=== PATIENT | male | born 1945 | race Caucasian/White ===

== ENCOUNTER → 2017-08-26 14:47 | Outpatient (CLI) | payer OTHER, SELFPAY ==
[2017-08-26 15:20] LABS: Add Manual Diff / Slide Review NO; Basophils Percent Auto 0.5 % (0-2); Hematocrit 43.9 % (41-53); Hemoglobin 15.1 g/dL (13.5-17.5); Lymphocytes Percent Auto 35.7 % (25-40); Mean Corpuscular HGB Conc 34.5 % (30-36); Mean Corpuscular Hemoglobin 28.8 PG (26-34); Mean Corpuscular Volume 83.4 fL (80-100); Monocytes Percent Auto 7.2 % (3-14); Neutrophils Absolute Auto 5700 /uL (3000-5900); Neutrophils Percent Auto 54.6 % (50-75); Platelet Count 339 X10^3/uL (150-400); Red Blood Cell Count 5.26 X10^6/uL (4.5-5.9); Red Cell Distribution Width 14.7 % (11.6-14.8); White Blood Cell Count 10.4 X10^3/uL (4.5-11.0)
[2017-08-26 16:03] LABS: Alanine Aminotransferase 39 IU/L (21-72); Albumin 4.7 g/dL (3.5-5.0); Albumin Globulin Ratio 1.8 (1.0-2.8); Alkaline Phosphatase 58 U/L (38-126); Aspartate Aminotransferase 23 IU/L (17-59); BUN Creatinine Ratio 17.5 (6-22); Bilirubin Total 0.4 mg/dL (0.2-1.3); Blood Urea Nitrogen 14 mg/dL (9-20); Calcium 9.7 mg/dL (8.4-10.2); Carbon Dioxide 31 mmol/L (22-32); Chloride 95 mmol/L (98-107); Estimated Glomerular Filt Rate > 60.0 mL/min (>60); Globulin 2.6 g/dL (1.7-4.1); Glucose 115 mg/dL (80-110); HEMOLYSIS < 15 (0-50); Potassium 3.9 mmol/L (3.4-5.1); Sodium 139 mmol/L (137-145); Total Protein 7.3 g/dL (6.3-8.2)
[2017-08-26 16:15] LABS: Creatinine Urine Random 16.6 mg/dL; Protein (Total) Urine Random 14 mg/dL (0-12); Protein Creatinine Ratio Urine 0.84 GRAM/24H
[2017-08-26 16:36] LABS: Prostate Specific Antigen < 0.064 ng/mL (0.10-4.00)
== END ==
PROVIDERS: PCP Internal Medicine; Referring Provider Urology; Visit Provider Internal Medicine
DX: F41.9 Anxiety disorder, unspecified (principal); E11.42 Type 2 diabetes mellitus with diabetic polyneuropathy; I10 Essential (primary) hypertension; E78.5 Hyperlipidemia, unspecified; Z79.4 Long term (current) use of insulin; Z85.46 Personal history of malignant neoplasm of prostate
CPT/HCPCS: 36415; 80053; 82570; 84153; 84156; 85025

== ENCOUNTER → 2017-10-21 16:46 | Outpatient (CLI) | payer OTHER, SELFPAY ==
--- NOTE | 2017-10-21 16:50 | DI.RAD.S_ITS ---
PROCEDURE: XR ACUTE ABDOMEN SERIES INDICATIONS: abdominal pain TECHNIQUE: One view chest and two views of the abdomen were acquired. COMPARISON: None. FINDINGS: Surgical changes and devices: Surgical clips each hemipelvis, presumably representing lymph node dissection. Chest: Lungs are clear. Heart size is normal. No pleural effusions. No pneumoperitoneum. Abdomen: Bowel gas pattern is abnormal with moderate bilateral colonic obstipation through the abdomen and pelvis.. No suspicious calcifications. Visualized solid organ contours appear normal. Bones: No suspicious bony lesions. IMPRESSION: Moderate bilateral colonic obstipation. Prior surgical procedure presumably representing lymph node dissection and each hemipelvis. Dictated by: Nicolas Lorenzo M.D. on 10/22/2017 at 8:36 Approved by: Nicolas Lorenzo M.D. on 10/22/2017 at 8:37
[2017-10-21 17:20] LABS: Add Manual Diff / Slide Review NO; Basophils Percent Auto 0.4 % (0-2); Hemoglobin 15.9 g/dL (13.5-17.5); Lymphocytes Percent Auto 34.1 % (25-40); Mean Corpuscular HGB Conc 35.3 % (30-36); Mean Corpuscular Hemoglobin 28.8 PG (26-34); Mean Corpuscular Volume 81.6 fL (80-100); Monocytes Percent Auto 7.1 % (3-14); Neutrophils Absolute Auto 7400 /uL (3000-5900); Neutrophils Percent Auto 57.4 % (50-75); Platelet Count 357 X10^3/uL (150-400); Red Blood Cell Count 5.51 X10^6/uL (4.5-5.9); Red Cell Distribution Width 13.8 % (11.6-14.8); White Blood Cell Count 12.8 X10^3/uL (4.5-11.0)
[2017-10-21 17:38] LABS: Alanine Aminotransferase 25 IU/L (21-72); Albumin 4.9 g/dL (3.5-5.0); Albumin Globulin Ratio 1.8 (1.0-2.8); Alkaline Phosphatase 60 U/L (38-126); Amylase 53 U/L (30-110); Aspartate Aminotransferase 21 IU/L (17-59); BUN Creatinine Ratio 16.3 (6-22); Bilirubin Total 0.4 mg/dL (0.2-1.3); Blood Urea Nitrogen 13 mg/dL (9-20); Calcium 9.7 mg/dL (8.4-10.2); Carbon Dioxide 30 mmol/L (22-32); Chloride 93 mmol/L (98-107); Estimated Glomerular Filt Rate > 60.0 mL/min (>60); Globulin 2.7 g/dL (1.7-4.1); Glucose 145 mg/dL (80-110); HEMOLYSIS < 15 (0-50); Lipase 23 U/L (23-300); Potassium 3.3 mmol/L (3.4-5.1); Sodium 135 mmol/L (137-145); Total Protein 7.6 g/dL (6.3-8.2)
[2017-10-21 17:57] LABS: Erythrocyte Sedimentation Rate 2 MM/HR (0-15)
== END ==
PROVIDERS: Family Provider Internal Medicine; PCP Internal Medicine; Visit Provider Internal Medicine
DX: R10.9 Unspecified abdominal pain (principal); E11.9 Type 2 diabetes mellitus without complications; F41.9 Anxiety disorder, unspecified; I10 Essential (primary) hypertension
CPT/HCPCS: 36415; 74022; 80053; 82150; 83690; 85025; 85651

== ENCOUNTER → 2018-09-10 09:28 | Outpatient (CLI) | payer OTHER, SELFPAY ==
[2018-09-10 10:52] LABS: Hemoglobin A1C% w Est Avg Glu 8.2 % (4.0-6.0)
[2018-09-10 11:15] LABS: BUN Creatinine Ratio 17.1 (6-22); Blood Urea Nitrogen 12 mg/dL (9-20); Calcium 9.7 mg/dL (8.4-10.2); Carbon Dioxide 29 mmol/L (22-32); Chloride 94 mmol/L (98-107); Estimated Glomerular Filt Rate > 60.0 mL/min (>60); Glucose 194 mg/dL (80-110); HEMOLYSIS < 15 (0-50); Potassium 3.3 mmol/L (3.4-5.1); Sodium 136 mmol/L (137-145)
== END ==
PROVIDERS: Family Provider Internal Medicine; PCP Internal Medicine; Visit Provider Internal Medicine
DX: E11.9 Type 2 diabetes mellitus without complications (principal); I10 Essential (primary) hypertension
CPT/HCPCS: 36415; 80048; 83036

== ENCOUNTER 2019-04-03 02:48 | Inpatient (IN) | payer OTHER, SELFPAY ==
[2019-04-03] VITALS (11 sets, daily range): BP systolic 123–166; BP diastolic 65–79; PULSE 74–100; RESP 16–20; TEMP 36.8–37.5; O2SAT 94–97; BMI 33.0
--- NOTE | 2019-04-03 02:55 | ED.GENADULT ---
HPI - General Adult General Chief complaint: Abdominal Pain Stated complaint: JUST FEELS TERRIBLE IN ABDOMEN Time Seen by Provider: 04/03/19 02:49 Source: patient Mode of arrival: Ambulatory Limitations: no limitations History of Present Illness HPI narrative: 73-year-old male. Hypertensive, diabetic. On insulin. Here for evaluation of to her 3 days of generalized abdominal pain. Had some diarrhea yesterday. Some nausea no vomiting. Stated that he has been drinking quite a bit of fluids over the past couple days to keep from getting dehydrated. He has had decreased oral intake of food secondary to the abdominal pain. Has not tried anything for the pain prior to arrival. No urinary symptoms. Related Data Home Medications Medication Instructions Recorded Confirmed insulin glargine [Lantus Solostar 18 unit SQ HS #0 12/08/15 03/06/19 U-100 Insulin] dulaglutide 0.75 mg/0.5 mL SUBCUT #2 ml 04/22/18 03/06/19 subcutaneous pen injector Previous Rx's Medication Instructions Recorded albuterol sulfate 90 mcg/actuation 2 puff INHALATION Q4H PRN #18 gram 01/27/18 aerosol inhaler ondansetron 4 mg disintegrating 4 mg PO Q6-8H PRN #30 tab 05/26/18 tablet azelastine 137 mcg (0.1 %) nasal 1 spray NASAL BID #30 ml 08/25/18 spray aerosol lisinopril 40 mg tablet 40 mg PO BID #180 tab 08/27/18 triamterene-hydrochlorothiazid 1 tab PO QDAY #90 tab 09/10/18 amlodipine 10 mg tablet 10 mg PO Q DAY #90 tab 11/28/18 metoprolol succinate 50 mg 50 mg PO QDAY #90 ter 01/09/19 tablet,extended release 24 hr rosuvastatin 10 mg tablet See Rx Instructions .ROUTE 02/19/19 .COMPLEX #90 tablet diazepam 5 mg tablet 5 mg PO BID #60 tab 03/26/19 hydrocodone 5 mg-acetaminophen 325 1 - 2 tab PO Q4HP PRN #240 tab 03/26/19 mg tablet Allergies Allergy/AdvReac Type Severity Reaction Status Date / Time metronidazole Allergy Severe NEUROPATHY Verified 03/06/19 13:28 IN THE FEET naproxen Allergy Severe TONGUE Verified 03/06/19 13:28 SWELLING, ITCHY Sulfa (Sulfonamide Allergy Mild UNSURE Verified 03/06/19 13:28 Antibiotics) glipizide [GLIPIZIDE] AdvReac Intermediate sick all Verified 03/06/19 13:28 over metformin AdvReac Intermediate GASTRIC Verified 03/06/19 13:28 UNEASE, LOOSE STOOL acetaminophen [From Percocet] AdvReac Mild NAUSEA Verified 03/06/19 13:28 oxycodone [From Percocet] AdvReac Mild NAUSEA Verified 03/06/19 13:28 *Pain Agreement AdvReac Mild 10/13/15 JRM Uncoded 03/06/19 13:28 Review of Systems Constitutional Constitutional: Denies fatigue and Denies fever(s) Cardiovascular Cardiovascular: Denies chest pain and Denies dyspnea Respiratory Respiratory: Denies dyspnea Gastrointestinal Gastrointestinal: Reports abdominal pain, Denies change in stool character, Reports nausea and Denies vomiting Genitourinary Genitourinary: Denies dysuria Integumentary/Breasts Skin/Breast: Denies lesions and Denies rash Neurologic Neurologic: Denies behavioral changes Psychiatric Psychiatric: Denies behavioral changes Endocrine Endocrine: Denies fatigue Hematologic/Lymphatic Hematologic/Lymphatic: Denies easy bleeding and Denies easy bruising Patient History Medical History Anxiety (Chronic 04/30/13) Chicken pox (Resolved) Controlled type 2 diabetes mellitus without complication (Chronic 03/21/12) Diabetes mellitus (Chronic ~2013) Foot pain (Resolved) Hay fever (Chronic) History of Clostridium difficile colitis (Resolved ~2011) History of malignant neoplasm of prostate (Chronic 06/16/15) Hyperlipidemia (Chronic) Hypertension (Chronic ~1993) Idiopathic peripheral neuropathy (Chronic 03/12/13) Social History marital status: unmarried,single number of children: 0 household members: none lives independently: Yes caregiver/support person: No housing: house pets and animals: Yes education level: college occupational status: other (Retired) current occupational exposures/hazards: No 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 Friends.) Smoking Status: Never smoker Tobacco: How many years used: 0 quit status: quit date established (Never Started) second hand exposure: No alcohol intake: never substance use type: does not use Smoking Status: Never smoker Exam Initial Vital Signs Initial Vital Signs: Vital Signs Temperature 98.2 F 04/03/19 02:58 Pulse Rate 80 04/03/19 02:58 Respiratory Rate 20 04/03/19 02:58 Blood Pressure 163/77 H 04/03/19 02:58 Pulse Oximetry 97 04/03/19 02:58 Const General: cooperative, comfortable and well developed Limitations: mental status not altered HENMT Head: normal to inspection and normocephalic Resp Effort & Inspection: normal respiratory effort Auscultation: clear to auscultation bilaterally Cardio Rate: regular rate Rhythm: regular rhythm GI Inspection: distended Palpation: soft, No firm and tender (Epigastric region) Skin Rashes: no rashes Neuro General: alert, awake and oriented x3 Cognition: normal cognition Speech: speech normal Extrem General: normal to inspection and capillary refill normal Scores GCS [place] coma scale eye opening: Spontaneous [place] coma scale verbal response: Orientated [place] coma scale motor response: Obey commands [place] coma scale total score: 15 Course Orders Ordered: ED Orders 04/03/19 02:52 EKG-12 Lead Stat 04/03/19 03:01 CT abdomen pelvis w con Stat 04/03/19 03:15 Amylase Stat Complete Blood Count AUTO DIFF Stat Comprehensive Metabolic Panel Stat Lactate (Lactic Acid) Stat Lipase Stat 04/03/19 04:04 Urinalysis and Microscopic Stat 04/03/19 05:15 Potassium Urine Random Stat Sodium Urine Random Stat 04/03/19 05:38 Consult to Physician Stat 04/03/19 05:39 Consult to Physician Routine Sodium Chloride (Normal Saline 0.9%) 1,000 mls @ 500 mls/hr IV BOLUS ONE Stop: 04/03/19 05:57 Last Admin: 04/03/19 04:06 Dose: 500 mls/hr Documented by: NELSON Potassium Chloride 20 meq/ (Sodium Chloride) 260 mls @ 130 mls/hr IV NOW ONE Stop: 04/03/19 06:04 Last Admin: 04/03/19 04:23 Dose: 130 mls/hr Documented by: NELSON Cosigned by: HGUBERN Sodium Chloride (Normal Saline 0.9%) 1,000 mls @ 125 mls/hr IV CONT JOSE Morphine Sulfate (Morphine) 4 mg IV Q4HR PRN PRN Reason: Pain, Mild (1-3) Ondansetron HCl (Zofran) 4 mg IV Q4HR PRN PRN Reason: Nausea And Vomiting Discontinued Medications Morphine Sulfate (Morphine) 2 mg IV NOW ONE Stop: 04/03/19 03:43 Last Admin: 04/03/19 03:49 Dose: 2 mg Documented by: NELSON Morphine Sulfate (Morphine) 2 mg IV NOW ONE Stop: 04/03/19 03:57 Last Admin: 04/03/19 03:59 Dose: 2 mg Documented by: NELSON Morphine Sulfate (Morphine) 4 mg IV NOW ONE Stop: 04/03/19 04:41 Last Admin: 04/03/19 04:44 Dose: 4 mg Documented by: NELSON Vital Signs Vital signs: Vital Signs - 8 hr 04/03/19 02:58 04/03/19 03:51 04/03/19 04:23 Temperature 98.2 F Pulse Rate 80 76 74 Respiratory Rate 20 18 20 Blood Pressure 163/77 H Blood Pressure [Left Arm] 151/68 H 166/69 H Pulse Oximetry 97 95 96 04/03/19 05:22 Temperature Pulse Rate 76 Respiratory Rate 18 Blood Pressure Blood Pressure [Left Arm] 145/65 H Pulse Oximetry 97 Medical Decision Making Lab Data Lab results reviewed: Yes I reviewed the patient's lab results. Result diagrams: 04/03/19 03:15 04/03/19 03:15 Labs: Lab Results 04/03/19 04/03/19 04/03/19 Range/Units 03:15 03:15 03:15 WBC 23.0 H (4.5-11.0) X10^3/uL RBC 5.04 (4.5-5.9) X10^6/uL Hgb 14.3 (13.5-17.5) g/dL Hct 40.9 L (41-53) % MCV 81.1 (80-100) fL MCH 28.5 (26-34) PG MCHC 35.1 (30-36) % RDW 14.2 (11.6-14.8) % Plt Count 297 (150-400) X10^3/uL Neut % (Auto) Not Reportable Lymph % (Auto) Not Reportable [place] % (Auto) Not Reportable Eos % (Auto) Not Reportable Baso % (Auto) Not Reportable Lymph # (Auto) Not Reportable [place] # (Auto) Not Reportable Baso # (Auto) Not Reportable Total Counted 100 Seg Neutrophils % 84.0 H (38-70) % Lymphocytes % (Manual) 10.0 L (25-45) % Monocytes % (Manual) 6.0 (2-11) % Neutrophils # (Manual) 40448 H (1933-1999) /uL RBC Morphology Normal morphology Sodium 117 L* (137-145) mmol/L Potassium 2.9 L (3.4-5.1) mmol/L Chloride 74 L* (98-107) mmol/L Carbon Dioxide 28 (22-32) mmol/L BUN 8 L (9-20) mg/dL Creatinine 0.50 L (0.66-1.25) mg/dL Estimated GFR > 60.0 (>60) mL/min BUN/Creatinine Ratio 16.0 (6-22) Glucose 189 H (80-110) mg/dL Lactate 1.2 (0.7-2.1) mmol/L Calcium 8.7 (8.4-10.2) mg/dL Total Bilirubin 0.9 (0.2-1.3) mg/dL AST 20 (17-59) IU/L ALT 15 (<50) IU/L Alkaline Phosphatase 72 (38-126) U/L Total Protein 7.2 (6.3-8.2) g/dL Albumin 4.3 (3.5-5.0) g/dL Globulin 2.9 (1.7-4.1) g/dL Albumin/Globulin Ratio 1.5 (1.0-2.8) Lipase 82 (23-300) U/L Imaging Data CT scan - abdomen/pelvis: Radiologist's Impression: Mild peripancreatic inflammatory changes compatible with acute pancreatitis. No evidence of pancreatic necrosis, pseudocyst, or secondary complications. No evidence of colitis, diverticulitis, bowel obstruction, or obstructing uropathy. Appendix not visualized Left renal cyst and subcentimeter bilateral low attenuation renal cortical lesions. Too small to characterize Probable right hepatic cyst or hemangioma ECG Data Attestation: I personally reviewed and interpreted this ECG as follows: Prior ECG tracings: not available for review Interpretation: Sinus rhythm Left axis deviation Ventricular rate of [address] T wave changes MDM Narrative Medical decision making narrative: Patient does have a relatively benign abdominal exam however does have a focus of his pain in the epigastric region. No right upper quadrant tenderness. No left upper quadrant tenderness. No chest pain. Does have leukocytosis. Despite his lack elevation in lipase CT scan findings concerning for pancreatitis. CT scan does show inflammation around the head of the. Which does correlate with where he is having his pain. His LFTs are unremarkable. Patient is hyponatremic and hypokalemic. Do suspect that his hyponatremia was secondary to the increase fluid that he has had over the past couple days. He was gently rehydrated. His amylase and urine potassium and sodium pending at the time of admission. I did discuss the case with Dr. Welch who is on-call for the patient's primary provider. Will admit for further evaluation and treatment. Discussed this with the patient. He expressed understanding and agreement plan. Discharge Plan Departure Patient Disposition: Admitted As Inpatient Clinical Impression: Hyponatremia, Hypokalemia, Hyperglycemia Acute pancreatitis Qualifiers: Pancreatitis type: unspecified pancreatitis type Acute pancreatitis complication: unspecified Qualified Code(s): K85.90 - Acute pancreatitis without necrosis or infection, unspecified
--- NOTE | 2019-04-03 03:01 | DI.CT.S_ITS ---
PROCEDURE: CT ABDOMEN PELVIS W CON INDICATIONS: Generalized abdominal pain with bloating TECHNIQUE: After the administration of intravenous contrast, 5 mm thick sections acquired from the diaphragm to the symphysis. 5 mm coronal and sagittal reformats were acquired. For radiation dose reduction, the following was used: automated exposure control, adjustment of mA and/or kV according to patient size. COMPARISON: None. FINDINGS: Image quality: Excellent. ABDOMEN: Lung bases: Lung bases are clear. Heart size is normal. Solid organs: Liver is normal in size and enhancement. Subcentimeter cyst versus hemangioma in the right lobe. Gallbladder is mildly distended without gallbladder wall thickening. No calcified gallstones. Biliary system is non dilated. Fatty atrophy of the pancreas. Inflammatory change in the region of the pancreatic head and uncinate process consistent with acute pancreatitis. No evidence of pancreatic necrosis. Spleen is normal in size and enhancement. No adrenal nodules. Kidneys demonstrate normal size and enhancement, without hydronephrosis. Peritoneum and bowel: Mild inflammatory change in the region of the third and fourth portion of the duodenum, likely from acute pancreatitis. Bowel loops otherwise demonstrate normal wall thickness and caliber. No free fluid or air. Nodes and vessels: No retroperitoneal or mesenteric adenopathy by size criteria. Aorta and inferior vena cava are normal in size. Miscellaneous: No ventral hernias. PELVIS: Genitourinary: Bladder wall thickness is normal. Prostatectomy clips. Miscellaneous: Small left inguinal hernia containing fat. Bones: No suspicious bony lesions. No vertebral body compression fractures. IMPRESSION: 1. Mild changes of acute pancreatitis. 2. No prostatectomy. No evidence of metastatic disease. Comment: Final report is concordant with preliminary interpretation provided by [facility]. Dictated by: Clinton Juan M.D. on 04/03/2019 at 7:47 Approved by: Clinton Juan M.D. on 04/03/2019 at 7:52
[2019-04-03 03:32] LABS: Hematocrit 40.9 % (41-53); Hemoglobin 14.3 g/dL (13.5-17.5); Mean Corpuscular HGB Conc 35.1 % (30-36); Mean Corpuscular Hemoglobin 28.5 PG (26-34); Mean Corpuscular Volume 81.1 fL (80-100); Platelet Count 297 X10^3/uL (150-400); Red Blood Cell Count 5.04 X10^6/uL (4.5-5.9); Red Cell Distribution Width 14.2 % (11.6-14.8)
[2019-04-03 03:39] LABS: Add Manual Diff / Slide Review YES; Alanine Aminotransferase 15 IU/L (<50); Albumin 4.3 g/dL (3.5-5.0); Albumin Globulin Ratio 1.5 (1.0-2.8); Alkaline Phosphatase 72 U/L (38-126); Aspartate Aminotransferase 20 IU/L (17-59); Bilirubin Total 0.9 mg/dL (0.2-1.3); Blood Urea Nitrogen 8 mg/dL (9-20); Calcium 8.7 mg/dL (8.4-10.2); Carbon Dioxide 28 mmol/L (22-32); Estimated Glomerular Filt Rate > 60.0 mL/min (>60); Globulin 2.9 g/dL (1.7-4.1); Glucose 189 mg/dL (80-110); HEMOLYSIS < 15 (0-50); Lipase 82 U/L (23-300); Total Protein 7.2 g/dL (6.3-8.2)
[2019-04-03 03:40] LABS: Lactate (Lactic Acid) 1.2 mmol/L (0.7-2.1)
[2019-04-03] MEDS: MORPHINE 2 MG/ML INJ IV ×2 (03:49→03:59)
[2019-04-03 03:52] LABS: Neutrophils Absolute Manual 19320 /uL (3000-5900); RBC Morphology Normal Morphology; Total Cells Counted 100
[2019-04-03 03:53] LABS: Potassium 2.9 mmol/L (3.4-5.1)
[2019-04-03 03:56] LABS: Chloride 74 mmol/L (98-107); Sodium 117 mmol/L (137-145)
[2019-04-03] MEDS: SODIUM CHLORIDE 0.9% 1,000 ML 500 ML IV (04:06)
[2019-04-03] MEDS: POTASSIUM CHLORIDE 20 MEQ in SODIUM CHLORIDE 0.9% 250 ML 130 ML IV (04:23)
[2019-04-03] MEDS: MORPHINE 4 MG/ML INJ IV (04:44)
[2019-04-03 05:53] LABS: Potassium Urine Random 4.9 mmol/L; Sodium Urine Random < 5 mmol/L (30-90)
[2019-04-03 05:55] LABS: Amylase 66 U/L (30-110)
[2019-04-03] MEDS: MORPHINE 2 MG/ML INJ 4 MG IV (06:31)
--- NOTE | 2019-04-03 07:49 | P.HP_ITS ---
History of Present Illness History of Present Illness Date Patient Seen: 04/03/19 Time Patient Seen: 07:49 Chief complaint: JUST FEELS TERRIBLE IN ABDOMEN Narrative: Patient presented to the [facility] Emergency Department on day of admission with severe abdominal symptoms. He reported feeling ill for maybe up to 2 days prior. Pain in the mid abdomen with. Maybe some mild nausea with emesis early in the morning prior to admission on 1 occasion. He felt like eating actually seemed to make things better. Had some milder but the similar symptoms when vacationing in [place] several weeks prior that resolved on their own without particular intervention. This time he reduced his food intake as he just was not feeling like eating but worked very hard to drink lots and lots and lots of fluids to stay hydrated. Denies fever chills. No change in bowels. No new food sources or other people around him L Patient History Medical History Anxiety (Chronic 04/30/13) Controlled type 2 diabetes mellitus without complication (Chronic 03/21/12) Diabetes mellitus (Chronic ~2013) Foot pain (Resolved) Hay fever (Chronic) History of Clostridium difficile colitis (Resolved ~2011) History of malignant neoplasm of prostate (Chronic 06/16/15) Hyperlipidemia (Chronic) Hypertension (Chronic ~1993) Idiopathic peripheral neuropathy (Chronic 03/12/13) Surgical History Ankle pain (Resolved ~1996) Status post radical cystoprostatectomy (Inactive ~1994) Family & Social History Family History Father Type II diabetes mellitus Heart disease Grandfather Heart disease Mother Lung cancer Grandfather Prostate cancer Social History: household members none lives independently Yes caregiver/support person No Safety & Behavioral: Feels Safe in Current Yes Environment Tobacco & Substance use: Smoking Status Never smoker alcohol intake never Substance Use Type does not use Meds Home Medications and Allergies Home Medications Medication Instructions Recorded Confirmed Type insulin glargine [Lantus Solostar 18 unit SQ HS #0 12/08/15 03/06/19 History U-100 Insulin] albuterol sulfate 90 mcg/actuation 2 puff INHALATION Q4H PRN #18 gram 01/27/18 03/06/19 Rx aerosol inhaler dulaglutide 0.75 mg/0.5 mL SUBCUT #2 ml 04/22/18 03/06/19 History subcutaneous pen injector ondansetron 4 mg disintegrating 4 mg PO Q6-8H PRN #30 tab 05/26/18 03/06/19 Rx tablet azelastine 137 mcg (0.1 %) nasal 1 spray NASAL BID #30 ml 08/25/18 03/06/19 Rx spray aerosol lisinopril 40 mg tablet 40 mg PO BID #180 tab 08/27/18 03/06/19 Rx triamterene-hydrochlorothiazid 1 tab PO QDAY #90 tab 09/10/18 03/06/19 Rx amlodipine 10 mg tablet 10 mg PO Q DAY #90 tab 11/28/18 03/06/19 Rx metoprolol succinate 50 mg 50 mg PO QDAY #90 ter 01/09/19 03/06/19 Rx tablet,extended release 24 hr rosuvastatin 10 mg tablet See Rx Instructions .ROUTE 02/19/19 03/06/19 Rx .COMPLEX #90 tablet diazepam 5 mg tablet 5 mg PO BID #60 tab 03/26/19 Rx hydrocodone 5 mg-acetaminophen 325 1 - 2 tab PO Q4HP PRN #240 tab 03/26/19 Rx mg tablet Allergies Allergy/AdvReac Type Severity Reaction Status Date / Time metronidazole Allergy Severe NEUROPATHY Verified 03/06/19 13:28 IN THE FEET naproxen Allergy Severe TONGUE Verified 03/06/19 13:28 SWELLING, ITCHY Sulfa (Sulfonamide Allergy Mild UNSURE Verified 03/06/19 13:28 Antibiotics) glipizide [GLIPIZIDE] AdvReac Intermediate sick all Verified 03/06/19 13:28 over metformin AdvReac Intermediate GASTRIC Verified 03/06/19 13:28 UNEASE, LOOSE STOOL acetaminophen [From Percocet] AdvReac Mild NAUSEA Verified 03/06/19 13:28 oxycodone [From Percocet] AdvReac Mild NAUSEA Verified 03/06/19 13:28 *Pain Agreement AdvReac Mild 10/13/15 JRM Uncoded 03/06/19 13:28 Review of Systems Constitutional Constitutional: Denies excessive sweating, Denies fever(s), Denies headache(s), Denies weakness, Denies weight gain and Denies weight loss Eyes Eyes: Denies change in vision, Denies itchy eyes, Denies loss of vision and Denies other visual disturbances ENT Ears, Nose, Mouth, and Throat: No change in voice, No difficulty swallowing, No dizziness, No ear pain, No headache(s), No hoarseness, No lip swelling, No neck pain, No sore throat, No throat swelling and No tongue swelling Cardiovascular Cardiovascular: Denies chest pain, Denies fainting, Denies fast heart rate, Denies irregular heart rhythm, Denies rapid, pounding, or irregular heartbeat, Denies shortness of breath, Denies shortness of breath with activity and Denies slow heart rate Respiratory Respiratory: Denies chest congestion, Denies cough, Denies hemoptysis, Denies dyspnea, Denies dyspnea on exertion, Denies stridor and Denies wheezing Gastrointestinal Gastrointestinal: Denies melena, Reports bloating, Denies change in bowel habits, Denies change in stool character, Denies coffee ground emesis, Denies cramping, Denies dysphagia and Denies hematemesis Genitourinary Genitourinary: Denies hematuria, Denies difficulty urinating and Denies urinary frequency Musculoskeletal Musculoskeletal: Denies abnormal gait, Denies myalgias, Denies arthralgias, Denies limited range of motion and Denies neck pain Integumentary/Breasts Skin/Breast: Denies bleeding lesions, Denies change in pigmentation, Denies changing lesions, Denies new lesions, Denies rash, Denies skin swelling, Denies sores and Denies jaundice Neurologic Neurologic: Denies abnormal speech, Denies abnormal gait, Denies behavioral changes, Denies confusion, Denies dizziness, Denies syncope, Denies headache(s), Denies loss of vision, Denies memory loss, Denies seizure-like activity, Denies paresthesias and Denies weakness Psychiatric Psychiatric: Denies behavioral changes, Denies change in appetite, Denies confusion, Denies difficulty concentrating, Denies auditory hallucinations, Denies memory loss, Denies mood swings and Denies suicidal ideation Endocrine Endocrine: Denies excessive sweating, Denies flushing, Denies polyuria and Denies palpitations Hematologic/Lymphatic Hematologic/Lymphatic: Denies easy bleeding, Denies easy bruising and Denies lymphadenopathy Allergic/Immunologic Allergic/Immunologic: Denies urticaria, Denies itchy eyes, Denies lip swelling, Denies throat swelling, Denies tongue swelling and Denies wheezing Exam Vital Signs (past 8 hours): - 04/03/19 02:58 04/03/19 03:51 04/03/19 04:23 Temperature 98.2 F Pulse Rate 80 76 74 Respiratory Rate 20 18 20 Blood Pressure 163/77 H Blood Pressure [Left Arm] 151/68 H 166/69 H Pulse Oximetry 97 95 96 04/03/19 05:22 04/03/19 06:42 Temperature Pulse Rate 76 75 Respiratory Rate 18 18 Blood Pressure Blood Pressure [Left Arm] 145/65 H 147/68 H Pulse Oximetry 97 96 Oxygen Delivery Method Room Air Narrative Exam Narrative: Elderly male in no obvious distress lying in hospital bed HEENT-normocephalic atraumatic PERRLA EOMs intact Neck-no lymphadenopathy no bruits Lungs-good breath sounds no wheezes no crackles bilaterally Heart-regular rate and rhythm no murmur Abdomen-distended with rare bowel tones. Mild midepigastric to perhaps slightly right of midline mild tenderness to palpation, no rebound or guarding Extremities-not sinus clubbing or edema Neuro-alert orient x3 no focal findings gait not tested Objective Imaging CT scan - abdomen: Radiologist's impression: PROCEDURE: CT ABDOMEN PELVIS W CON INDICATIONS: Generalized abdominal pain with bloating TECHNIQUE: After the administration of intravenous contrast, 5 mm thick sections acquired from the diaphragm to the symphysis. 5 mm coronal and sagittal reformats were acquired. For radiation dose reduction, the following was used: automated exposure control, adjustment of mA and/or kV according to patient size. COMPARISON: None. FINDINGS: Image quality: Excellent. ABDOMEN: Lung bases: Lung bases are clear. Heart size is normal. Solid organs: Liver is normal in size and enhancement. Subcentimeter cyst versus hemangioma in the right lobe. Gallbladder is mildly distended without gallbladder wall thickening. No calcified gallstones. Biliary system is non dilated. Fatty atr ophy of the pancreas. Inflammatory change in the region of the pancreatic head and uncinate process consistent with acute pancreatitis. No evidence of pancreatic necrosis. Spleen is normal in size and enhancement. No adrenal nodules. Kidneys demonstrate normal size and enhancement, without hydronephrosis. Peritoneum and bowel: Mild inflammatory change in the region of the third and fourth portion of the duodenum, likely from acute pancreatitis. Bowel loops otherwise demonstrate normal wall thickness and caliber. No free fluid or air. Nodes and vessels: No retroperitoneal or mesenteric adenopathy by size criteria. Aorta and inferior vena cava are normal in size. Miscellaneous: No ventral hernias. PELVIS: Genitourinary: Bladder wall thickness is normal. Prostatectomy clips. Miscellaneous: Small left inguinal hernia containing fat. Bones: No suspicious bony lesions. No vertebral body compression fractures. IMPRESSION: 1. Mild changes of acute pancreatitis. 2. No prostatectomy. No evidence of metastatic disease. Labs Result Diagrams: 04/03/19 03:15 04/03/19 03:15 Labs: Laboratory Results - last 24 hr 04/03/19 04/03/19 04/03/19 03:15 03:15 03:15 WBC 23.0 H RBC 5.04 Hgb 14.3 Hct 40.9 L MCV 81.1 MCH 28.5 MCHC 35.1 RDW 14.2 Plt Count 297 Neut % (Auto) Not Reportable Lymph % (Auto) Not Reportable [place] % (Auto) Not Reportable Eos % (Auto) Not Reportable Baso % (Auto) Not Reportable Lymph # (Auto) Not Reportable [place] # (Auto) Not Reportable Baso # (Auto) Not Reportable Total Counted 100 Seg Neutrophils % 84.0 H Lymphocytes % (Manual) 10.0 L Monocytes % (Manual) 6.0 Neutrophils # (Manual) 82385 H RBC Morphology Normal morphology Sodium 117 L* Potassium 2.9 L Chloride 74 L* Carbon Dioxide 28 BUN 8 L Creatinine 0.50 L Estimated GFR > 60.0 BUN/Creatinine Ratio 16.0 Glucose 189 H Lactate 1.2 Calcium 8.7 Total Bilirubin 0.9 AST 20 ALT 15 Alkaline Phosphatase 72 Total Protein 7.2 Albumin 4.3 Globulin 2.9 Albumin/Globulin Ratio 1.5 Amylase Lipase 82 Ur Random Sodium Ur Random Potassium 04/03/19 04/03/19 03:15 05:15 WBC RBC Hgb Hct MCV MCH MCHC RDW Plt Count Neut % (Auto) Lymph % (Auto) [place] % (Auto) Eos % (Auto) Baso % (Auto) Lymph # (Auto) [place] # (Auto) Baso # (Auto) Total Counted Seg Neutrophils % Lymphocytes % (Manual) Monocytes % (Manual) Neutrophils # (Manual) RBC Morphology Sodium Potassium Chloride Carbon Dioxide BUN Creatinine Estimated GFR BUN/Creatinine Ratio Glucose Lactate Calcium Total Bilirubin AST ALT Alkaline Phosphatase Total Protein Albumin Globulin Albumin/Globulin Ratio Amylase 66 Lipase Ur Random Sodium < 5 L Ur Random Potassium 4.9 Assessment & Plan Assessment & Plan narrative: 1. Abdominal pain-while patient did have findings on CT suggestive of perhaps mild acute pancreatitis nothing else in his story or objectively supports this diagnosis. He has normal amylase and normal lipase. His symptoms are not consistent with pancreatic source of symptoms in my opinion. I think more chin more likely is a gastric sources symptoms maybe even biliary tract. At this point I am assuming gastric and I would treat him with an IV proton pump inhibitor keep him NPO except for sips of water with some of his essential meds such as his beta-phu therapy etc. continue to monitor carefully and will repeat amylase and lipase in case this is pancreatitis On imaging his biliary tree looked to be normal with only mild distention of his gallbladder. His LFTs and his bilirubin were entirely normal on his laboratory evaluation. I will repeat these numbers again in the morning but at the moment given lack of objective findings I am not thinking this is biliary tract but I would not rule that out either. Continue with IV antiemetics IV pain management and basically NPO for possible pancreatitis verses what I believe to be more likely gastric source of symptoms 2. Hyponatremia-likely combination of his thiazide diuretic on top of excessive fluid intake. Will for now place on IV saline hold his thiazide diuretic of course and re-evaluate numbers later in the afternoon 3. Hypokalemia-will replace parenterally as well and recheck later today 4. Diabetes-patient is type 2 diabetic on insulin. I am going to continue to give him basal insulin but at a much lower dose given his lack of real oral intake. Will follow his fingerstick numbers and treat with insulin as necessary. Hopefully he can return to eating something in the next 24 hours if not then I will supply him with some IV dextrose as well 5. Anxiety-patient with severe anxiety and chronically on diazepam. Will continue diazepam for now as he certainly become physically dependent if nothing else on it 6. Hypertension-patient on multiple antihypertensives. I am going to hold his thiazide diuretic of course. For now I am going to hold his oral lisinopril but he will receive his oral metoprolol. 7. VTE prophylaxis-appropriate for him to be placed on subcu Lovenox as well as sequential compression devices for prevention of venous thromboembolism. Patient deserves inpatient hospitalization given his severe hyponatremia as well as his severe abdominal pain that thus far device specific diagnosis with several confusing findings as above. He will be in the hospital greater than 48 hours including 2 separate midnights, more likely than not.
[2019-04-03] MEDS: POTASSIUM CHLORIDE 60 MEQ in SODIUM CHLORIDE 0.9% 500 ML 88.333 ML IV (09:28)
[2019-04-03] MEDS: PANTOPRAZOLE 40 MG VIAL IV ×2 (09:29→21:07)
[2019-04-03] MEDS: diazePAM 5 MG TABLET PO ×2 (09:29→21:06)
[2019-04-03] MEDS: ENOXAPARIN 40 MG/0.4 ML SYRINGE SUBCUT (09:29)
[2019-04-03] MEDS: ROSUVASTATIN 10 MG TABLET PO (09:29)
[2019-04-03] MEDS: METOPROLOL ER 50 MG TABLET PO (09:29)
[2019-04-03] MEDS: HYDROMORPHONE 1 MG INJ IV ×2 (09:30→16:29)
[2019-04-03] MEDS: SODIUM CHLORIDE 0.9% 1,000 ML 150 ML IV (09:31)
[2019-04-03 10:18] LABS: Bacteria Urine None Seen; WBC Urine None Seen (0-5/HPF)
[2019-04-03 10:34] LABS: Appearance Urine UA CLEAR; Bilirubin Urine UA NEGATIVE (NEGATIVE); Color Urine UA YELLOW; Glucose Urine UA NEGATIVE (Negative); Ketones Urine UA TRACE (NEGATIVE); Leukocyte Esterase Urine UA NEGATIVE (NEGATIVE); Nitrite Urine UA NEGATIVE (Negative); Occult Blood Urine UA TRACE-INTACT (Negative); Protein Urine UA NEGATIVE (Negative); Specific Gravity Urine UA <=1.005 (1.000-1.035); Urobilinogen Urine UA 0.2 E.U./dL (0.2)
[2019-04-03 10:41] LABS: Culture Indicated Urine Cult Not Indicated; RBC Urine 0-1/HPF (0-5/HPF)
[2019-04-03] MEDS: INSULIN ASPART 100 UNIT/ML INSULN PEN SUBCUT ×2 (12:06→17:15)
[2019-04-03 13:47] LABS: BUN Creatinine Ratio 13.3 (6-22); Blood Urea Nitrogen 8 mg/dL (9-20); Calcium 8.6 mg/dL (8.4-10.2); Carbon Dioxide 29 mmol/L (22-32); Chloride 85 mmol/L (98-107); Estimated Glomerular Filt Rate > 60.0 mL/min (>60); Glucose 168 mg/dL (80-110); HEMOLYSIS < 15 (0-50); Sodium 126 mmol/L (137-145)
--- NOTE | 2019-04-03 17:31 | CM.DANOTE ---
Found the patient sitting up in bed watching TV. Very pleasant and humorous man. A&O x4. He reports feeling much better that prior to admission. Patient states his sister (the woman listed as next of kin on demographics sheet) has flown into town to take care of him while he recuperates. Pt. fully expects to resume his normal, independent lifestyle once healed. Patient's discharge plan is home without need. Whiteboard updates. Patient instructed to call Care Management if he thinks of anything we can assist with.
--- NOTE | 2019-04-03 18:10 | PC.NURSE ---
Addendum entered by Cherelle Arango R.N. 04/03/19 22:44: Pt had requested dilaudid earlier this evening prior to this scientific writer leaving for the evening approximately 11 p.m. Pt now in bed with eyes closed lightly snoring. Respirations are even and unlabored. Pt does not rouse to soft voice so will allow pt sleep and inform noc shift pain meds may be needed. Addendum entered by Cherelle Arango R.N. 04/03/19 19:26: Standby assistance into bathroom to void. Returned to bed. Stable gait without dizziness when up. Voiding without difficulty. Rates abdominal pain 2/10 after ambulation. Returned to bed and BL calf scd's replaced. Oral swabs provided and pt uses independently. Original Note: Pt reports central mid-abdominal pain 8/10. Given iv dilaudid as per emar. Pt reports excellent results with pain now 2/10. Denies nausea. Remains NPO. Explained rationale for insulin orders as per MD. Pt's sister is present @ bedside.
[2019-04-03] MEDS: SODIUM CHLORIDE 0.9% 1,000 ML 100 ML IV (21:06)
[2019-04-03] MEDS: INSULIN GLARGINE 100 UNIT/ML 3ML PEN 10 UNIT SUBCUT (21:07)
[2019-04-04] VITALS (10 sets, daily range): BP systolic 131–156; BP diastolic 61–98; PULSE 75–88; RESP 16–18; TEMP 36.9–37.9; O2SAT 91–96
[2019-04-04] MEDS: HYDROMORPHONE 1 MG INJ IV ×4 (01:09→22:56)
[2019-04-04 05:14] LABS: Add Manual Diff / Slide Review NO; Basophils Absolute Auto 100 /uL (0-100); Basophils Percent Auto 0.6 % (0-2); Eosinophils Absolute Auto 200 /uL (0-450); Eosinophils Percent Auto 1.4 % (2-4); Hematocrit 38.2 % (41-53); Hemoglobin 13.3 g/dL (13.5-17.5); Lymphocytes Absolute Auto 2100 /uL (1100-4500); Lymphocytes Percent Auto 15.3 % (25-40); Mean Corpuscular HGB Conc 34.9 % (30-36); Mean Corpuscular Hemoglobin 28.5 PG (26-34); Mean Corpuscular Volume 81.7 fL (80-100); Monocytes Absolute Auto 1100 /uL (0-900); Monocytes Percent Auto 7.8 % (3-14); Neutrophils Absolute Auto 10400 /uL (1500-7000); Neutrophils Percent Auto 74.9 % (50-75); Platelet Count 306 X10^3/uL (150-400); Red Blood Cell Count 4.68 X10^6/uL (4.5-5.9); Red Cell Distribution Width 14.7 % (11.6-14.8); White Blood Cell Count 13.9 X10^3/uL (4.5-11.0)
[2019-04-04 05:20] LABS: Alanine Aminotransferase 13 IU/L (<50); Albumin 3.6 g/dL (3.5-5.0); Albumin Globulin Ratio 1.2 (1.0-2.8); Alkaline Phosphatase 60 U/L (38-126); Aspartate Aminotransferase 17 IU/L (17-59); Bilirubin Total 0.4 mg/dL (0.2-1.3); Blood Urea Nitrogen 9 mg/dL (9-20); Calcium 8.2 mg/dL (8.4-10.2); Carbon Dioxide 27 mmol/L (22-32); Chloride 96 mmol/L (98-107); Estimated Glomerular Filt Rate > 60.0 mL/min (>60); Globulin 2.9 g/dL (1.7-4.1); Glucose 158 mg/dL (80-110); HEMOLYSIS < 15 (0-50); Potassium 3.7 mmol/L (3.4-5.1); Sodium 132 mmol/L (137-145); Total Protein 6.5 g/dL (6.3-8.2)
--- NOTE | 2019-04-04 06:10 | PC.NURSE ---
Pt is doing alright. Complained of pain twice overnight, 6-8 out of 10, relieved with 1mg IVP Dilaudid. Kept NPO, given a few ice chips NS@100mL/hr Had soft BM overnight. Fingerstick overnight 140 B/L SCDs on overnight,
[2019-04-04] MEDS: SODIUM CHLORIDE 0.9% 1,000 ML 100 ML IV (06:58)
[2019-04-04] MEDS: METOPROLOL ER 50 MG TABLET PO (08:10)
[2019-04-04] MEDS: diazePAM 5 MG TABLET PO ×2 (08:10→13:44)
[2019-04-04] MEDS: ONDANSETRON 4 MG/2 ML INJ IV ×2 (08:11→13:44)
[2019-04-04] MEDS: PANTOPRAZOLE 40 MG VIAL IV ×2 (08:11→21:13)
[2019-04-04] MEDS: ENOXAPARIN 40 MG/0.4 ML SYRINGE SUBCUT (08:11)
[2019-04-04] MEDS: INSULIN ASPART 100 UNIT/ML INSULN PEN SUBCUT ×3 (08:12→16:32)
--- NOTE | 2019-04-04 09:42 | PM.PN.1 ---
Subjective Subjective Date Patient Seen: 04/04/19 Time Patient Seen: 09:42 Interval history: Patient had an uneventful day yesterday. Reports abdominal pain is improved. Still has a fair amount distension and if anything pain is localizing in the right upper quadrant more accurately just to the right of midline in the mid epigastrium. He actually put a sharpie ink jose on the spot. No nausea or vomiting No fever documented Has remained NPO. Blood sugars adequately controlled Exam Vital Signs (past 8 hours): - 04/04/19 03:20 04/04/19 08:00 04/04/19 08:10 Temperature 98.8 F 99.3 F Pulse Rate 84 83 Respiratory Rate 16 16 Blood Pressure 145/61 H 131/74 131/74 Pulse Oximetry 95 95 Oxygen Delivery Method Room Air Oxygen Flow Rate 0 Narrative Exam Narrative: HEENT-unremarkable Lungs-clear Heart-regular rate and rhythm Abdomen-moderate distension no rebound or guarding mild tenderness just to the right of midline in the epigastrium without rebound or guarding of course, positive normal bowel tones Objective Labs Result Diagrams: 04/04/19 04:56 04/04/19 04:56 Labs: Laboratory Results - last 24 hr 04/03/19 04/03/19 04/04/19 09:45 13:20 04:56 WBC 13.9 H RBC 4.68 Hgb 13.3 L Hct 38.2 L MCV 81.7 MCH 28.5 MCHC 34.9 RDW 14.7 Plt Count 306 Neut % (Auto) 74.9 Lymph % (Auto) 15.3 L [place] % (Auto) 7.8 Eos % (Auto) 1.4 L Baso % (Auto) 0.6 Neut # (Auto) 62905 H Lymph # (Auto) 2100 [place] # (Auto) 1100 H Eos # (Auto) 200 Baso # (Auto) 100 Sodium 126 L Potassium 4.0 Chloride 85 L Carbon Dioxide 29 BUN 8 L Creatinine 0.60 L Estimated GFR > 60.0 BUN/Creatinine Ratio 13.3 Glucose 168 H Calcium 8.6 Total Bilirubin AST ALT Alkaline Phosphatase Total Protein Albumin Globulin Albumin/Globulin Ratio Urine Color Yellow Urine Appearance Clear Urine pH 7.0 Ur Specific [place] <=1.005 Urine Protein Negative Urine Glucose (UA) Negative Urine Ketones Trace H Urine Occult Blood Trace-intact Urine Nitrate Negative Urine Bilirubin Negative Urine Urobilinogen 0.2 Ur Leukocyte Esterase Negative Urine RBC 0-1/hpf Urine WBC None seen Urine Bacteria None seen Ur Culture Indicated? Cult not indicated 04/04/19 04:56 WBC RBC Hgb Hct MCV MCH MCHC RDW Plt Count Neut % (Auto) Lymph % (Auto) [place] % (Auto) Eos % (Auto) Baso % (Auto) Neut # (Auto) Lymph # (Auto) [place] # (Auto) Eos # (Auto) Baso # (Auto) Sodium 132 L Potassium 3.7 Chloride 96 L Carbon Dioxide 27 BUN 9 Creatinine 0.60 L Estimated GFR > 60.0 BUN/Creatinine Ratio 15.0 Glucose 158 H Calcium 8.2 L Total Bilirubin 0.4 AST 17 ALT 13 Alkaline Phosphatase 60 Total Protein 6.5 Albumin 3.6 Globulin 2.9 Albumin/Globulin Ratio 1.2 Urine Color Urine Appearance Urine pH Ur Specific [place] Urine Protein Urine Glucose (UA) Urine Ketones Urine Occult Blood Urine Nitrate Urine Bilirubin Urine Urobilinogen Ur Leukocyte Esterase Urine RBC Urine WBC Urine Bacteria Ur Culture Indicated? Assessment & Plan Assessment & Plan narrative: 1. Abdominal pain-unclear as to what the etiology his pain is. I am still fairly suspicious for biliary tract source of pain however labs were normal have remained normal in that regard. Imaging showed enlargement of gallbladder without evidence of cholecystitis and no dilatation of common bile duct. Continue with conservative management and plan to re-feed gently through the course of the day today. I think we can Hep-Lock his IV fluids as well. 2. Hyponatremia-resolved 3. Hypokalemia-resolved 4. Diabetes-continue to monitor. Depending on patient's ability to advance diet through the course the day may require a slightly higher dose or return to his normal dose of basal insulin. Continue with coverage insulin as well. Overall patient is much improved. Etiology of his pain is still unclear. Fortunately all is biochemical markers have improved and/or normalize. Continue to monitor while Reef eating plan to recheck numbers tomorrow and if much improved possible discharge tomorrow Quality VTE Deep Vein Thrombosis/Pulmonary Embolism Present on Admission: No
[2019-04-04] MEDS: SIMETHICONE 80 MG TABLET PO (15:03)
[2019-04-04] MEDS: HYDROMORPHONE 0.5 MG INJ IV ×2 (15:45→19:09)
[2019-04-04] MEDS: INSULIN GLARGINE 100 UNIT/ML 3ML PEN 10 UNIT SUBCUT (21:12)
[2019-04-05] VITALS (11 sets, daily range): BP systolic 134–150; BP diastolic 69–81; PULSE 61–96; RESP 16–20; TEMP 37.2–38.7; O2SAT 94–98
[2019-04-05] MEDS: SODIUM CHLORIDE 0.9% FLUSH 10 ML IV ×4 (00:36→21:46)
[2019-04-05] MEDS: diazePAM 5 MG TABLET PO ×2 (00:48→17:02)
[2019-04-05 04:51] LABS: Add Manual Diff / Slide Review NO; Basophils Absolute Auto 100 /uL (0-100); Basophils Percent Auto 0.8 % (0-2); Eosinophils Absolute Auto 400 /uL (0-450); Hematocrit 40.5 % (41-53); Hemoglobin 13.8 g/dL (13.5-17.5); Lymphocytes Absolute Auto 2400 /uL (1100-4500); Lymphocytes Percent Auto 15.7 % (25-40); Mean Corpuscular Hemoglobin 28.1 PG (26-34); Mean Corpuscular Volume 82.6 fL (80-100); Monocytes Absolute Auto 1100 /uL (0-900); Monocytes Percent Auto 7.3 % (3-14); Neutrophils Absolute Auto 11000 /uL (1500-7000); Neutrophils Percent Auto 73.2 % (50-75); Platelet Count 335 X10^3/uL (150-400); Red Cell Distribution Width 14.3 % (11.6-14.8); White Blood Cell Count 15.1 X10^3/uL (4.5-11.0)
[2019-04-05 04:59] LABS: Alanine Aminotransferase 15 IU/L (<50); Albumin 3.9 g/dL (3.5-5.0); Albumin Globulin Ratio 1.3 (1.0-2.8); Alkaline Phosphatase 63 U/L (38-126); Aspartate Aminotransferase 16 IU/L (17-59); Bilirubin Total 0.4 mg/dL (0.2-1.3); Bilirubin Unconjugated 0.3 mg/dL (0.0-1.1); Blood Urea Nitrogen 7 mg/dL (9-20); Carbon Dioxide 33 mmol/L (22-32); Chloride 92 mmol/L (98-107); Estimated Glomerular Filt Rate > 60.0 mL/min (>60); Glucose 148 mg/dL (80-110); HEMOLYSIS < 15 (0-50); Potassium 4.3 mmol/L (3.4-5.1); Sodium 133 mmol/L (137-145); Total Protein 6.9 g/dL (6.3-8.2)
--- NOTE | 2019-04-05 05:23 | PC.NURSE ---
Addendum entered by Tabitha Santiago R.N. 04/05/19 06:59: Pt with low grade temp this morning 100.0 PO, BP 148/69. Pt denies increase in abd RUQ pain. States, feels the same and indicates to his RUQ. No obvious s/s infection. Will con't to monitor and report to oncoming nurse. Original Note: Pt rested overnight. Reported pain at beginning of shift well controlled as he had IV pain medication previously. Abd large, round, bloating con't per pt. RUQ tender. WBC increased overnight. VSS. Pt has chronic irregular heart rate. RLE with 2+ edema. Pt reports chronic peripheral neuropathy in both feet. Able to ambu with SBA. Denies nausea. No s/s hypoglycemia. Tolerating sips of water. Requested PRN diazepam x1 overnight. Monitor for s/s abdominal infection, effective pain control. Reinforce fall precautions.
[2019-04-05] MEDS: HYDROMORPHONE 1 MG INJ IV ×4 (07:32→18:49)
[2019-04-05] MEDS: PANTOPRAZOLE 40 MG VIAL IV ×2 (08:59→21:46)
[2019-04-05] MEDS: ENOXAPARIN 40 MG/0.4 ML SYRINGE SUBCUT (08:59)
[2019-04-05] MEDS: INSULIN ASPART 100 UNIT/ML INSULN PEN SUBCUT ×4 (08:59→21:43)
[2019-04-05] MEDS: METOPROLOL ER 50 MG TABLET PO (08:59)
[2019-04-05] MEDS: HYDROCODONE/ACET 5/325 TABLET 1 TAB PO (08:59)
--- NOTE | 2019-04-05 10:04 | PC.NURSE ---
Checked temperature to see if fever was decreasing.
--- NOTE | 2019-04-05 11:46 | P.PN_ITS ---
Subjective Subjective Date Patient Seen: 04/05/19 Time Patient Seen: 11:46 Interval history: Patient had a pretty uneventful day yesterday. Was able tolerate liquids although they felt like they hit his stomach with a ?ton of lead This morning he has had a fever to 101. Took 1 of his usual hydrocodone/acetaminophen which helped with the fever but may be actually made his stomach feel worse. Persist with more symptoms in the right side of his upper abdomen than anywhere else although certainly not particularly worse than yesterday Has been hesitant to advance his diet Has been up out of bed without particular difficulty Still reports feeling tremendously better than he did upon admission Exam Vital Signs (past 8 hours): - 04/05/19 06:38 04/05/19 08:00 04/05/19 08:40 Temperature 100 F H 101.7 F H Pulse Rate 85 77 80 Respiratory Rate 17 16 Blood Pressure 148/69 H 140/77 Pulse Oximetry 94 96 96 04/05/19 08:59 04/05/19 10:00 04/05/19 10:06 Temperature 101.1 F H 99.5 F 99.5 F Pulse Rate Respiratory Rate Blood Pressure Pulse Oximetry Oxygen Delivery Method Room Air Oxygen Flow Rate 0 Narrative Exam Narrative: HEENT-unremarkable Lungs-clear Heart-regular rate and rhythm Abdomen-distended, mild tenderness to deep palpation right upper quadrant without specific spot, no rebound or guarding, positive bowel tones Extremities-trace edema at the ankles bilaterally Objective Labs Result Diagrams: 04/05/19 04:31 04/05/19 04:31 Labs: Laboratory Results - last 24 hr 04/05/19 04/05/19 04:31 04:31 WBC 15.1 H RBC 4.90 Hgb 13.8 Hct 40.5 L MCV 82.6 MCH 28.1 MCHC 34.0 RDW 14.3 Plt Count 335 Neut % (Auto) 73.2 Lymph % (Auto) 15.7 L [place] % (Auto) 7.3 Eos % (Auto) 3.0 Baso % (Auto) 0.8 Neut # (Auto) 41863 H Lymph # (Auto) 2400 [place] # (Auto) 1100 H Eos # (Auto) 400 Baso # (Auto) 100 Sodium 133 L Potassium 4.3 Chloride 92 L Carbon Dioxide 33 H BUN 7 L Creatinine 0.70 Estimated GFR > 60.0 BUN/Creatinine Ratio 10.0 Glucose 148 H Calcium 9.0 Total Bilirubin 0.4 Conjugated Bilirubin 0.0 Unconjugated Bilirubin 0.3 AST 16 L ALT 15 Alkaline Phosphatase 63 Total Protein 6.9 Albumin 3.9 Globulin 3.0 Albumin/Globulin Ratio 1.3 Assessment & Plan Assessment & Plan narrative: 1. Abdominal pain-patient with abdominal pain now with fever and persistent leukocytosis. LFTs remain normal. Electrolyte abnormalities have been corrected and have remained normal. However given location of his symptoms which seem to be localizing into the right upper quadrant IA fully believe this is a biliary tract source of issues and perhaps we saw on CT was some evidence of early pancreatitis was merely residual after gallstone had past CT did show distension gallbladder but without evidence of acute cholecystitis. Unless patient has tremendous improvement through the course of the day today I think I would ultrasound his abdomen tomorrow to look at the gallbladder and biliary tract with a different modality as well as follow-up several days after initial evaluation with CT 2. Diabetes-patient's numbers are adequately controlled for now. No change overall in his treatment plan. Continue with somewhat lower dose basal insulin and coverage insulin as necessary 3. Electrolytes/renal-patient's electrolytes remain normal and renal function remains normal as well. Continue off of IV fluids for now. Overall patient is improved upon admission primarily likely because of improvement in his electrolytes and overall hydration. Persists with abdominal pain which I am increasingly believe based on clinical findings only (without objective findings) to be biliary tract in origin. Continue to monitor for progression of symptoms and consider further evaluation if patient not improving. Quality VTE Deep Vein Thrombosis/Pulmonary Embolism Present on Admission: No
[2019-04-05] MEDS: DOCUSATE 100 MG CAPSULE 200 MG PO ×2 (12:11→21:45)
--- NOTE | 2019-04-05 14:49 | CM.DANOTE ---
DCP/Assessment: Patient is a 73yr old male admitted to [facility] with abdominal pain. PCP is Dr. Hardy. [facility]. Met with patient explained CM/SW role. Patient appreciated of the visit and reports that he plans to return home when medically stable. Patient reports that he resides alone and lives a very I lifestyle. 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 At this time patient on clear liquid diet. Patient hopes to be able to increase that soon. Patient continues to complain of abdominal pain. P: Anticipate home when medically stable. CELY Degroot Discharge Planning/Care Management CM Discharge Assessment Start: 04/05/19 14:34 Freq: Status: Active Protocol: Document 04/05/19 14:35 KJS (Rec: 04/05/19 14:49 KJS [id number]) Discharge Planning Assessment Assigned [facility] CELY Degroot Contact Information Nga Gordon (sister) [phone] Advance Directives? No History Provided By Patient,Medical Record Prior Living Arrangements House Household Members none Type of transporation used prior to Drives own vehicle admit Independent with ADL's Yes Is patient alert and oriented? Yes Needs Assistance With Home Chores / Shopping Caregiver for Another No Transportation Arrangement Family can provide transport. Whiteboard Updated in Patient Room with Yes name and ext. # of [facility] [employer] Review Status In Process Next Review Type Continued Stay Review
--- NOTE | 2019-04-05 14:53 | PC.NURSE ---
Day shift: Made OR-Infection prevention intervention inactive as to make not RED on work list. Per MD Pt not having surgery at this time.
[2019-04-05] MEDS: INSULIN GLARGINE 100 UNIT/ML 3ML PEN 10 UNIT SUBCUT (21:43)
[2019-04-05] MEDS: HYDROMORPHONE 0.5 MG INJ IV (23:51)
[2019-04-06] MEDS: HYDROMORPHONE 0.5 MG INJ IV ×3 (03:26→15:53)
[2019-04-06 03:45] VITALS: BP 139/76; PULSE 67; RESP 16; TEMP 36.8; O2SAT 94
[2019-04-06 05:32] LABS: Add Manual Diff / Slide Review NO; Basophils Absolute Auto 0 /uL (0-100); Basophils Percent Auto 0.4 % (0-2); Eosinophils Absolute Auto 400 /uL (0-450); Eosinophils Percent Auto 3.8 % (2-4); Hematocrit 37.8 % (41-53); Lymphocytes Absolute Auto 2200 /uL (1100-4500); Lymphocytes Percent Auto 19.9 % (25-40); Mean Corpuscular HGB Conc 34.4 % (30-36); Mean Corpuscular Hemoglobin 28.2 PG (26-34); Mean Corpuscular Volume 81.9 fL (80-100); Monocytes Absolute Auto 1000 /uL (0-900); Neutrophils Absolute Auto 7400 /uL (1500-7000); Neutrophils Percent Auto 66.9 % (50-75); Platelet Count 352 X10^3/uL (150-400); Red Blood Cell Count 4.62 X10^6/uL (4.5-5.9); White Blood Cell Count 11.1 X10^3/uL (4.5-11.0)
[2019-04-06 05:42] LABS: Alanine Aminotransferase 14 IU/L (<50); Albumin 3.6 g/dL (3.5-5.0); Albumin Globulin Ratio 1.2 (1.0-2.8); Alkaline Phosphatase 59 U/L (38-126); Aspartate Aminotransferase 17 IU/L (17-59); Bilirubin Total 0.3 mg/dL (0.2-1.3); Bilirubin Unconjugated 0.3 mg/dL (0.0-1.1); Blood Urea Nitrogen 7 mg/dL (9-20); Calcium 8.7 mg/dL (8.4-10.2); Carbon Dioxide 35 mmol/L (22-32); Chloride 91 mmol/L (98-107); Estimated Glomerular Filt Rate > 60.0 mL/min (>60); Globulin 2.9 g/dL (1.7-4.1); Glucose 152 mg/dL (80-110); HEMOLYSIS < 15 (0-50); Potassium 3.8 mmol/L (3.4-5.1); Sodium 132 mmol/L (137-145); Total Protein 6.5 g/dL (6.3-8.2)
--- NOTE | 2019-04-06 07:00 | DI.US.S_ITS ---
PROCEDURE: US ABDOMEN COMPLETE INDICATIONS: RIGHT UPPER QUADRANT PAIN AND FEVER TECHNIQUE: Real-time scanning was performed of the abdominal and retroperitoneal organs, with image documentation. COMPARISON: [facility], US, ABDOMEN COMPLETE, 01/22/2012, 8:26. FINDINGS: Liver: The liver demonstrates normal size. The liver demonstrates generalized increased echogenicity. This decreases ultrasound sensitivity for detection of hepatic masses. A small amount of fatty sparing can be seen adjacent to the gallbladder. Gallbladder: The gallbladder is prominent in size. No findings of gallstones or sludge are seen. The gallbladder wall is not thickened, measuring 3 mm or less. No specific pericholecystic fluid is seen. The sonographic Page sign is negative. Biliary ducts: Intrahepatic bile ducts are non-dilated. Extrahepatic bile duct caliber measures 7 mm. Normal is 6-7 mm or less in diameter, or 10 mm or less post-cholecystectomy. Pancreas: Visualized portions of the pancreas are sonographically normal. Spleen: Spleen is normal in size and homogeneous in echotexture. Kidneys: Kidneys are normal in size and echotexture. Right kidney measures 12.3 cm long; left kidney measures 13.7 cm long. No hydronephrosis or nephrolithiasis. No solid masses. On the right, there is a simple appearing cyst seen inferiorly that measures up to 1.6 cm. On the left, there is a cyst seen, with an internal echogenic focus that measures up to 3.4 cm. Aorta: Visualized aorta is normal in caliber at less than 3 cm. Iliacs: Proximal common iliac arteries are normal in caliber at less than 2.5 cm. IVC: Intrahepatic inferior vena cava is patent. Miscellaneous: No free abdominal fluid. IMPRESSION: Enlarged gallbladder, without additional sonographic signs of cholecystitis. Bilateral renal cysts are seen. The 3.4 cm cyst on the left side demonstrates mild complication, with an internal echogenic focus. As clinically appropriate, please consider a dedicated renal mass protocol CT for further evaluation. Dictated by: Romario Angel M.D. on 04/06/2019 at 15:06 Approved by: Romario Angel M.D. on 04/06/2019 at 15:09
[2019-04-06 08:00] VITALS: BP 139/77; PULSE 72; RESP 16; TEMP 37; O2SAT 93
--- NOTE | 2019-04-06 08:22 | P.PN_ITS ---
Subjective Subjective Date Patient Seen: 04/06/19 Time Patient Seen: 08:22 Interval history: Patient with essentially an uneventful day yesterday. He has remained afebrile since yesterday morning. He just finished breakfast when I see him this morning and does not think that breakfast this morning nor meals yesterday made things worse in fact he initially states he thinks it made things better Had a shower yesterday Still does not feel like he is back to normal as far as his abdomen and how it feels but is nothing like he was upon admission Exam Vital Signs (past 8 hours): - 04/06/19 03:45 04/06/19 08:00 Temperature 98.3 F 98.6 F Pulse Rate 67 72 Respiratory Rate 16 16 Blood Pressure 139/76 139/77 Pulse Oximetry 94 93 Oxygen Delivery Method Room Air Oxygen Flow Rate 0 Objective Labs Result Diagrams: 04/06/19 05:05 04/06/19 05:05 Labs: Laboratory Results - last 24 hr 04/06/19 04/06/19 05:05 05:05 WBC 11.1 H RBC 4.62 Hgb 13.0 L Hct 37.8 L MCV 81.9 MCH 28.2 MCHC 34.4 RDW 14.0 Plt Count 352 Neut % (Auto) 66.9 Lymph % (Auto) 19.9 L Petroleum % (Auto) 9.0 Eos % (Auto) 3.8 Baso % (Auto) 0.4 Neut # (Auto) 7400 H Lymph # (Auto) 2200 Petroleum # (Auto) 1000 H Eos # (Auto) 400 Baso # (Auto) 0 Sodium 132 L Potassium 3.8 Chloride 91 L Carbon Dioxide 35 H BUN 7 L Creatinine 0.70 Estimated GFR > 60.0 BUN/Creatinine Ratio 10.0 Glucose 152 H Calcium 8.7 Total Bilirubin 0.3 Conjugated Bilirubin 0.0 Unconjugated Bilirubin 0.3 AST 17 ALT 14 Alkaline Phosphatase 59 Total Protein 6.5 Albumin 3.6 Globulin 2.9 Albumin/Globulin Ratio 1.2 Assessment & Plan Assessment & Plan narrative: Patient's abdominal pain at this point is still a bit uncertain at least the etiology. White count is near normal. Remainder of his chemistries are entirely normal. He has been afebrile. I am still wonder about biliary tract/gallbladder disease. At this point I suggest we continue to monitor after more normal breakfast this morning obtain an ultrasound of his gallbladder/abdomen and if stable to improved by this afternoon consider possible discharge. His electrolytes and renal function remained normal as LFTs remain normal. Blood sugars have been acceptable for now. Given that he has increased his diet I am going to return him to a higher dose of his basal insulin Note: Greater than 20 minutes was spent evaluating the patient on the floor, including examining the patient, discussing clinical course with clinical and nursing staff, reviewing clinical course in the computer, preparing documentation and writing orders for continued management of care, discussing status with family as appropriate, reviewing plans for the next 24 hours with both patient/family and nursing staff as appropriate. Quality VTE Deep Vein Thrombosis/Pulmonary Embolism Present on Admission: No
[2019-04-06] MEDS: METOPROLOL ER 50 MG TABLET PO (08:45)
[2019-04-06] MEDS: INSULIN ASPART 100 UNIT/ML INSULN PEN SUBCUT ×2 (08:45→12:29)
[2019-04-06] MEDS: DOCUSATE 100 MG CAPSULE 200 MG PO (08:45)
[2019-04-06] MEDS: ENOXAPARIN 40 MG/0.4 ML SYRINGE SUBCUT (08:47)
[2019-04-06] MEDS: PANTOPRAZOLE 40 MG VIAL IV (08:47)
[2019-04-06] MEDS: SODIUM CHLORIDE 0.9% FLUSH 10 ML IV (08:48)
[2019-04-06] MEDS: diazePAM 5 MG TABLET PO (09:34)
[2019-04-06 11:39] VITALS: BP 137/78; PULSE 68; RESP 16; TEMP 36.4; O2SAT 94
[2019-04-06] MEDS: HYDROCODONE/ACET 5/325 TABLET 1 TAB PO (12:55)
[2019-04-06 14:20] VITALS: BP 144/66; PULSE 65; RESP 16; TEMP 36.9; O2SAT 95
--- NOTE | 2019-04-06 14:28 | PC.NURSE ---
Day Shift Pt stated he had problems with [place], sounded like it was only in hospital. Pt asked to try [place] in the hospital, this was provided to pt. Checked on pt abt an hour after admin and he was sleeping and appeared comfortable and in no distress. About 15 min after visual check, went into pt's room after he had call light on and he stated he felt terrible. Very difficult time getting pt to describe what terrible meant. He finally stated he felt flushed and abd discomfort down his abd. VSS, afebrile. Notified MD, no new orders. Will discuss with pt. Continue to monitor.
[2019-04-06 17:00] VITALS: BP 144/71; PULSE 70; RESP 17; TEMP 36.6; O2SAT 93
--- NOTE | 2019-04-06 18:31 | PC.NURSE ---
Patient discharged. Left ambulatory with spouse and family member in private car. IV removed.
--- NOTE | 2019-04-08 08:33 | PM.DS.1 ---
History of Present Illness History of Present Illness Chief complaint: JUST FEELS TERRIBLE IN ABDOMEN Narrative: Patient presented to the [facility] Emergency Department on day of admission with severe abdominal symptoms. He reported feeling ill for maybe up to 2 days prior. Pain in the mid abdomen with. Maybe some mild nausea with emesis early in the morning prior to admission on 1 occasion. He felt like eating actually seemed to make things better. Had some milder but the similar symptoms when vacationing in [place] several weeks prior that resolved on their own without particular intervention. This time he reduced his food intake as he just was not feeling like eating but worked very hard to drink lots and lots and lots of fluids to stay hydrated. Denies fever chills. No change in bowels. No new food sources or other people around him {From Dr. Hardy' H&P 04/03/2019} Discharge Providers Provider Date of admission: 04/03/19 06:27 Discharge Date: 04/06/19 Primary care physician: Christopher Hardy MD Consults: 04/03/19 05:38 Consult to Physician Stat Comment: Consulting Provider: Christopher Hardy Reason for consultation: admission Has provider been notified: No Discharge provider: Christopher Hardy MD Summary Hospital Course Discharge Diagnosis: 1. Abdominal pain, etiology uncertain 2. Hyponatremia, resolved 3. Hypokalemia, resolved 4. Possible acute pancreatitis, resolved 5. Type 2 diabetes on insulin 6. Idiopathic peripheral neuropathy 7. History of prostate cancer 8. Leukocytosis Hospital Course: Patient was admitted to the hospital as above with hyponatremia hypokalemia and evidence of acute pancreatitis on imaging although biochemically normal. He was treated with IV fluids and made NPO. With this his electrolyte disturbances resolved completely. He felt much better with this alone. His LFTs and pancreatic enzymes were monitored over time and these remained entirely normal. Patient did have leukocytosis with initially elevated white count in did develop a fever during his hospitalization but no clear evidence of infection was ever found. Patient was evaluated for biliary tract source of symptoms but this was felt to not be present given basically a negative CT negative abdominal ultrasound and repeatedly negative blood work It was felt as though perhaps patient's diabetic medication Trulicity might have caused his evidence of pancreatitis as this is a known side effect of this drug. This was discontinued upon discharge. Patient had improvement in symptoms although is not completely back to normal at time of discharge. Given lack of specific findings it was felt appropriate to discharge him on day of discharge to continue slowly advance his diet at home. He will remain off the Trulicity but continue on his other usual medications for now. Patient be followed carefully as an outpatient perhaps for further investigation (e.g. ERCP) of his biliary tract verses monitoring for hyperglycemia without his Trulicity etcetera Exam Vital Signs (past 8 hours): Oxygen Delivery Method Room Air Oxygen Flow Rate 0 Objective Labs Result Diagrams: 04/06/19 05:05 04/06/19 05:05 Discharge Plan Discharge Plan Patient Disposition: Home Discharge orders & Medications Prescriptions: New omeprazole 40 mg capsule,delayed release(DR/EC) 40 mg PO BID Qty: 60 RF: 3 polyethylene glycol 3350 [Miralax] 17 gram/dose powder 17 gram PO DAILY Qty: 510 RF: 5 Continued Lantus Solostar U-100 Insulin 100 UNIT/1 ML insulin pen 18 unit SQ HS Qty: 0 RF: 0 albuterol sulfate 90 mcg/actuation HFA aerosol inhaler 2 puff INHALATION Q4H PRN (Reason: shortness of breath or wheezing) Qty: 18 RF: 6 lisinopril 40 mg tablet 40 mg PO BID Qty: 180 RF: 3 triamterene-hydrochlorothiazid 37.5-25 mg tablet 1 tab PO QDAY Qty: 90 RF: 3 rosuvastatin 10 mg tablet See Rx Instructions .ROUTE .COMPLEX Qty: 90 RF: 3 diazepam [Valium] 5 mg tablet 5 mg PO BID Qty: 60 RF: 0 hydrocodone-acetaminophen 5-325 mg tablet 1 - 2 tab PO Q4HP PRN (Reason: pain) Qty: 240 RF: 0 amlodipine [Norvasc] 10 mg tablet 10 mg PO Q DAY Qty: 90 RF: 3 azelastine 137 mcg (0.1 %) aerosol,spray 1 spray NASAL BID Qty: 30 RF: 4 metoprolol succinate 50 mg tablet extended release 24 hr 50 mg PO QDAY Qty: 90 RF: 3 Discontinued dulaglutide 0.75 mg/0.5 mL pen injector 0.75 mg SUBCUT WEEKLY Qty: 2 RF: 0 Follow up/Referrals: Christopher Hardy MD [Primary Care Provider] - 1 Week (patient to call A on Saturday to make appt for next week) Discharge Health Status Multidrug resistant organism: No MDRO Diet/Activity/Treatments Diet: Carb-consistent/Diabetic Other treatments: Limit use of hydrocodone as much as is possible, due to probable side effects on GI tract Visit Report/Discharge Packet Instructions: Polyethylene Glycol 3350, Omeprazole Discharge Data Primary Care Provider: Christopher Hardy Discharges patient from system. Discharge Date/Time: 04/06/19 18:31 Quality VTE Deep Vein Thrombosis/Pulmonary Embolism Present on Admission: No
== END 2019-04-06 18:31 | disposition home or self-care (01) | DRG 439 ==
LOC: ED 04:06 → AC 09:42
PROVIDERS: Admitting Provider Internal Medicine; Emergency Provider Emergency Medicine; Family Provider Internal Medicine; PCP Internal Medicine; Referring Provider Emergency Medicine; Visit Provider Internal Medicine
DX: K85.30 Drug induced acute pancreatitis without necrosis or infection (principal); E87.1 Hypo-osmolality and hyponatremia; E87.6 Hypokalemia; E11.9 Type 2 diabetes mellitus without complications; Z79.4 Long term (current) use of insulin; T38.3X5A Adverse effect of insulin and oral hypoglycemic [antidiabetic] drugs, initial encounter; G60.9 Hereditary and idiopathic neuropathy, unspecified; D72.829 Elevated white blood cell count, unspecified
CPT/HCPCS: 36415; 74177; 76700; 80048; 80053; 80076; 81001; 82150; 82962; 83605; 83690; 84133; 84300; 85025; 93005; 94760; 94762; 96365; 96366; 96375; 96376; 99223; 99232; 99238; 99284; 99285; C9113; J1170; J1650; J2270; J2405; J3480; Q9967

== ENCOUNTER → 2019-09-24 10:29 | Outpatient (CLI) | payer OTHER, SELFPAY ==
[2019-09-23 14:35] VITALS: BMI 33.0
--- NOTE | 2019-09-24 10:30 | DI.US.S_ITS ---
PROCEDURE: US SCROTUM INDICATIONS: TESTICULAR PAIN TECHNIQUE: Real-time scanning was performed of the scrotum and testicles, with image documentation. Color and pulse Doppler interrogation was performed of both testicles. COMPARISON: [facility], US, US ABDOMEN COMPLETE, 04/06/2019, 12:04. [facility], CT, CT ABDOMEN PELVIS W CON, 04/03/2019, 3:42. FINDINGS: Right: Testicle is normal in size at 3.7 x 2.3 x 2.6 cm, and heterogeneous in echotexture. Epididymis is normal in overall size and morphology. No varicoceles. There is a moderate-sized hydrocele. Overlying scrotal skin is normal in thickness. Increased vascularity to the right testicle appears to be present. Left: Testicle is normal in size at 4.5 x 2.1 x 2.9 cm, and heterogeneous in echotexture. Epididymis is normal in overall size and morphology. No varicoceles. Overlying scrotal skin is normal in thickness. There is a small left-sided hydrocele. The epididymal cyst is present measuring 3 mm. There also is a small cyst identified at the rete testes. There also appears to be increased vascularity to the left testicle. Doppler: Color and pulse Doppler demonstrate normal and symmetric arterial flow in both testicles. IMPRESSION: 1. No evidence of testicular mass or torsion. 2. Possible mildly increased vascularity of both testicles is suspicious for potential orchitis. Please correlate clinically. 3. Moderate-sized right-sided hydrocele. Small left-sided hydrocele. Dictated by: Jefferson Biswas M.D. on 09/24/2019 at 11:22 Approved by: Jefferson Biswas M.D. on 09/24/2019 at 11:25
== END ==
PROVIDERS: Family Provider Internal Medicine; PCP Internal Medicine; Referring Provider Family Medicine; Visit Provider Family Medicine
DX: N50.819 Testicular pain, unspecified (principal); N43.3 Hydrocele, unspecified; N50.89 Other specified disorders of the male genital organs
CPT/HCPCS: 76870

== ENCOUNTER → 2020-11-14 15:27 | Outpatient (CLI) | payer OTHER, SELFPAY ==
[2019-09-23 14:35] VITALS: BMI 33.0
[2020-11-14 16:27] LABS: Alanine Aminotransferase 24 IU/L (<50); Albumin 4.5 g/dL (3.5-5.0); Albumin Globulin Ratio 1.7 (1.0-2.8); Alkaline Phosphatase 59 U/L (38-126); Aspartate Aminotransferase 24 IU/L (17-59); BUN Creatinine Ratio 19.7 (6-22); Bilirubin Total 0.3 mg/dL (0.2-1.3); Blood Urea Nitrogen 14 mg/dL (9-20); Calcium 8.9 mg/dL (8.4-10.2); Carbon Dioxide 33 mmol/L (22-32); Chloride 99 mmol/L (98-107); Estimated Glomerular Filt Rate > 60.0 mL/min (>60); Globulin 2.6 g/dL (1.7-4.1); Glucose 263 mg/dL (80-110); HEMOLYSIS 19 (0-50); Potassium 3.6 mmol/L (3.4-5.1); Sodium 138 mmol/L (137-145); Total Protein 7.1 g/dL (6.3-8.2)
== END ==
PROVIDERS: Family Provider Internal Medicine; PCP Internal Medicine; Referring Provider Internal Medicine; Visit Provider Internal Medicine
DX: E11.9 Type 2 diabetes mellitus without complications (principal); E78.2 Mixed hyperlipidemia; I10 Essential (primary) hypertension; Z79.4 Long term (current) use of insulin
CPT/HCPCS: 36415; 80053

== ENCOUNTER → 2021-10-23 07:09 | Outpatient (CLI) | payer OTHER, SELFPAY ==
[2019-09-23 14:35] VITALS: BMI 33.0
[2021-10-23 08:29] LABS: Hemoglobin A1C% w Est Avg Glu 9.3 % (4.0-6.0)
[2021-10-23 08:42] LABS: Alanine Aminotransferase 28 IU/L (<50); Albumin 4.4 g/dL (3.5-5.0); Albumin Globulin Ratio 1.8 (1.0-2.8); Alkaline Phosphatase 66 U/L (38-126); Aspartate Aminotransferase 25 IU/L (17-59); Bilirubin Total 0.8 mg/dL (0.2-1.3); Blood Urea Nitrogen 14 mg/dL (9-20); Calcium 8.8 mg/dL (8.4-10.2); Carbon Dioxide 30 mmol/L (22-32); Chloride 96 mmol/L (98-107); Cholesterol 162 mg/dL (140-199); Estimated Glomerular Filt Rate > 60 mL/min (>60); Globulin 2.5 g/dL (1.7-4.1); Glucose 182 mg/dL (80-110); HDL Cholesterol 48 mg/dL (40-60); HEMOLYSIS < 15 (0-50); LDL Cholesterol Calculated 46 mg/dL (<100); Potassium 3.5 mmol/L (3.4-5.1); Sodium 133 mmol/L (137-145); Total Protein 6.9 g/dL (6.3-8.2); Triglycerides 340 mg/dL (35-150)
== END ==
PROVIDERS: Family Provider Internal Medicine; PCP Internal Medicine; Referring Provider Internal Medicine; Visit Provider Internal Medicine
DX: E11.9 Type 2 diabetes mellitus without complications (principal); E78.2 Mixed hyperlipidemia; I10 Essential (primary) hypertension; Z79.4 Long term (current) use of insulin
CPT/HCPCS: 36415; 80053; 80061; 83036

== ENCOUNTER 2021-11-29 09:30 | Emergency (ER) | payer OTHER, SELFPAY ==
[2019-09-23 14:35] VITALS: BMI 33.0
[2021-11-29] VITALS (23 sets, daily range): BP systolic 133–193; BP diastolic 63–84; PULSE 48–104; RESP 18–26; TEMP 36.6; O2SAT 93–97; BMI 32.0
--- NOTE | 2021-11-29 09:48 | DI.RAD.S_ITS ---
PROCEDURE: XR CHEST 1V INDICATIONS: chest pain TECHNIQUE: One view of the chest was acquired. COMPARISON: [facility], CHEST 2 VIEW, 07/29/2012, 12:30. [facility], CHEST 2 VIEW, 08/13/2013, 10:46. [facility], CHEST 2 VIEW, 09/09/2016, 15:23. FINDINGS: Surgical changes and devices: None. Lungs and pleura: On this semiupright portable chest examination, no large pneumothorax or large pleural effusions are seen. No focal infiltrates are seen. Mediastinum: The cardiac contours are within normal limits. The aorta demonstrates calcification and tortuosity. Bones and chest wall: Age-appropriate bony degenerative changes are seen. No suspicious bony lesions. Overlying soft tissues appear unremarkable. IMPRESSION: No acute cardiopulmonary process is seen. Dictated by: Romario Angel M.D. on 11/29/2021 at 9:17 Approved by: Romario Angel M.D. on 11/29/2021 at 9:18
[2021-11-29 10:08] LABS: Prothrombin Time 11.6 SECONDS (10.1-12.7)
[2021-11-29 10:11] LABS: PTT Partial Thromboplastin Tim 32 SECONDS (26-36)
[2021-11-29 10:13] LABS: Alanine Aminotransferase 29 IU/L (<50); Albumin 4.8 g/dL (3.5-5.0); Albumin Globulin Ratio 1.5 (1.0-2.8); Alkaline Phosphatase 62 U/L (38-126); Aspartate Aminotransferase 25 IU/L (17-59); BUN Creatinine Ratio 15.8 (6-22); Bilirubin Total 0.7 mg/dL (0.2-1.3); Blood Urea Nitrogen 12 mg/dL (9-20); Calcium 9.2 mg/dL (8.4-10.2); Carbon Dioxide 29 mmol/L (22-32); Chloride 93 mmol/L (98-107); Creatine Kinase 62 U/L (55-170); Estimated Glomerular Filt Rate > 60 mL/min (>60); Globulin 3.2 g/dL (1.7-4.1); Glucose 214 mg/dL (80-110); HEMOLYSIS < 15 (0-50); Lipase 34 U/L (23-300); Magnesium 2.2 mg/dL (1.6-2.3); Potassium 3.1 mmol/L (3.4-5.1); Sodium 135 mmol/L (137-145)
[2021-11-29 10:14] LABS: Add Manual Diff / Slide Review NO; Basophils Absolute Auto 0 /uL (0-100); Basophils Percent Auto 0.2 % (0-2); Eosinophils Absolute Auto 200 /uL (0-450); Eosinophils Percent Auto 1.8 % (2-4); Hematocrit 52.8 % (41-53); Lymphocytes Absolute Auto 3400 /uL (1100-4500); Lymphocytes Percent Auto 31.7 % (25-40); Mean Corpuscular HGB Conc 34.1 % (30-36); Mean Corpuscular Hemoglobin 28.6 PG (26-34); Mean Corpuscular Volume 83.9 fL (80-100); Monocytes Absolute Auto 600 /uL (0-900); Monocytes Percent Auto 5.5 % (3-14); Neutrophils Absolute Auto 6600 /uL (1500-7000); Neutrophils Percent Auto 60.8 % (50-75); Platelet Count 301 X10^3/uL (150-400); Red Cell Distribution Width 14.7 % (11.6-14.8); White Blood Cell Count 10.9 X10^3/uL (4.5-11.0)
--- NOTE | 2021-11-29 10:23 | ED.ARRPALP ---
HPI - Arrhythmia/Palpitations General Chief Complaint: Arrhythmia/Palpitations Stated Complaint: Low back pain radiating into front-dark stool Time Seen by Provider: 11/29/21 10:22 Source: patient Mode of arrival: Ambulatory Limitations: no limitations History of Present Illness HPI narrative: This 76-year-old gentleman has hypertension, diabetes, chronic low back pain, and neuropathy. He is receiving hydrocodone for the back pain and neuropathy. He recently wean himself from hydrocodone, feeling like it was not helping. He has had significant back pain over the past 2 years, following a fall. He has pain rating to the right hip, and in the right parietal leg. He has no incontinence. He is here due to generally not feeling well. He has no URI symptoms, headache, or visual changes. He has no chest pain or palpitation. He has no GI symptoms. He has no new, focal numbness or weakness. He is ambulatory without assistance. His back pain is significant at this time, he is currently off hydrocodone. Related Data Home Medications Medication Instructions Recorded Confirmed insulin glargine 100 unit/mL (3 18 unit SQ HS ##0 12/08/15 10/27/21 mL) subcutaneous pen (Lantus Solostar U-100 Insulin) empagliflozin 10 mg tablet 10 mg PO DAILY 05/06/20 10/27/21 (Jardiance) metformin 500 mg tablet,extended 500 mg PO DAILY 05/06/20 10/27/21 release 24 hr Previous Rx's Medication Instructions Recorded azelastine 137 mcg (0.1 %) nasal 1 spray intranasal BID #30 mL 08/25/18 spray aerosol polyethylene glycol 3350 17 17 gram PO DAILY #510 grams 04/06/19 gram/dose oral powder (Miralax) clotrimazole 1 % topical cream 1 applictn topical BID 2 weeks #12 09/22/ grams mupirocin 2 % topical ointment 1 applic topical BID #30 grams 04/01/20 omeprazole 40 mg capsule,delayed 40 mg PO BID #180 caps 05/27/20 release ketoconazole 2 % shampoo 1 applic topical 2XW #120 mL 09/26/20 albuterol sulfate 90 mcg/actuation 2 puff inhalation Q4H PRN 12/06/20 aerosol inhaler shortness of breath or wheezing #18 grams metoprolol succinate 50 mg 50 mg PO QDAY ##90 12/29/20 tablet,extended release 24 hr triamterene 37.5 1 tab PO QDAY #90 tabs 08/07/21 mg-hydrochlorothiazide 25 mg tablet rosuvastatin 10 mg tablet See Rx Instructions .Route 09/04/21 .COMPLEX #90 tabs lisinopril 40 mg tablet 40 mg PO BID #180 tabs 09/11/21 diazepam 5 mg tablet (Valium) 5 mg PO BID #60 tabs 10/05/21 desonide 0.05 % topical cream 1 applic topical QD-BID PRN rash 10/27/21 #60 grams hydrocodone 5 mg-acetaminophen 325 1 - 2 tab PO Q4HP PRN pain #240 10/27/21 mg tablet tabs amlodipine 10 mg tablet (Norvasc) 10 mg PO Q DAY #90 tabs 11/27/21 potassium chloride 10 mEq 10 meq PO DAILY #90 caps 11/29/21 capsule,extended release Allergies Allergy/AdvReac Type Severity Reaction Status Date / Time metronidazole Allergy Severe NEUROPATHY Verified 11/29/21 09:45 IN THE FEET naproxen Allergy Severe TONGUE Verified 11/29/21 09:45 SWELLING, ITCHY Sulfa (Sulfonamide Allergy Mild UNSURE Verified 11/29/21 09:45 Antibiotics) glipizide [GLIPIZIDE] AdvReac Intermediate sick all Verified 11/29/21 09:45 over metformin AdvReac Intermediate GASTRIC Verified 11/29/21 09:45 UNEASE, LOOSE STOOL acetaminophen [From Percocet] AdvReac Mild NAUSEA Verified 11/29/21 09:45 oxycodone [From Percocet] AdvReac Mild NAUSEA Verified 11/29/21 09:45 Review of Systems Review of Systems ROS Unobtainable: All systems reviewed & are unremarkable except as noted in HPI and below Constitutional Constitutional: Denies body ache(s), Denies chills, Denies fatigue, Denies fever(s) and Reports weakness Comments: Myalgia. Eyes Eyes: Denies change in vision and Denies floaters ENT Ears, Nose, Mouth, and Throat: Denies vertigo, Denies dizziness, Denies otalgia and Denies neck pain Cardiovascular Cardiovascular: Denies chest pain, Denies rapid heart rate, Denies edema, Denies leg edema and Denies dyspnea Respiratory Respiratory: Denies cough and Denies dyspnea Gastrointestinal Gastrointestinal: Denies abdominal pain, Denies nausea and Denies vomiting Genitourinary Genitourinary: Denies dysuria and Denies flank pain Musculoskeletal Musculoskeletal: Reports as per HPI, Reports back pain and Denies neck pain Integumentary/Breasts Skin/Breast: Denies new lesions and Denies rash Neurologic Neurologic: Denies behavioral changes, Denies vertigo, Denies dizziness and Reports weakness Psychiatric Psychiatric: Denies anxiety and Denies behavioral changes Endocrine Endocrine: Denies fatigue Hematologic/Lymphatic On Anticoagulants: No Patient History Medical History Anxiety (04/30/13) Controlled type 2 diabetes mellitus without complication (03/21/12) Foot pain Hay fever History of Clostridium difficile colitis (~2011) History of malignant neoplasm of prostate (06/16/15) Hyperlipidemia Hypertension (~1993) Idiopathic peripheral neuropathy (03/12/13) Uncomplicated opioid dependence Surgical History Ankle pain (~1996) Status post radical cystoprostatectomy (~1994) Family History Father Type II diabetes mellitus Heart disease Grandfather Heart disease Mother Lung cancer Grandfather Prostate cancer Social History marital status: unmarried,single number of children: 0 household members: none lives independently: Yes caregiver/support person: No housing: house pets and animals: Yes education level: college occupational status: other current occupational exposures/hazards: No 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: [employer] leisure activities: other Smoking Status: Never smoker Tobacco: How many years used: 0 quit status: quit date established second hand exposure: No alcohol intake: never substance use type: does not use Smoking Status: Never smoker alcohol intake frequency: holidays/special occasions only Substance Use Type: does not use Exam Initial Vital Signs Initial Vital Signs: Vital Signs Pulse Rate 52 L 11/29/21 09:37 Pulse Oximetry 93 11/29/21 09:37 Const General: cooperative, comfortable, well developed, well groomed and No acute distress Nutritional Appearance: average body habitus HENVT Head: normocephalic and atraumatic Mouth: oral mucosae normal and moist mucous membranes Eyes General: Yes appearance normal, both eyes and all related structures Neck Neck: normal visual inspection, No lymphadenopathy and No JVD Chest Chest: normal inspection of the chest Resp Auscultation: clear to auscultation bilaterally Cardio Rate: bradycardic Rhythm: regular rhythm Heart Sounds: S1 normal, S2 normal and no murmurs Pulses: dorsalis pedis present GI Inspection: normal to inspection Palpation: soft, No mass and No tender Back/Spine/Pelvis Back: normal to inspection and back tenderness (Lumbar tenderness, more prevalent on the right side.) Skin General: no rashes or lesions noted Other: Ingrown right great toenail, affected on the medial side. Neuro General: patient alert, patient awake and no focal motor deficits Other: Mild light touch deficit in the right anterior lower leg. Extrem General: normal to inspection, full ROM and no calf tenderness Psych Appearance: grossly normal Procedures [facility] [place] Procedure Name of Procedure: Ingrown toenail removal. Side (if applicable): right Location: Right great toe Technique/Description of procedure performed: Betadine prep applied. Digital block performed with lidocaine 1%. The medial aspect of the right great toe was excised using iris scissors. Hemostasis was obtained. The wound was soaked in warm water and Hibiclens, a bandage was applied. Course Course Course Narrative: The patient is in bigeminy, but asymptomatic. His potassium is low, but oral potassium did not alter the bigeminy. On exam patient has pain rated from the back to the right hip and thigh, was slight numbness in the right lower leg. CT shows diffuse arthritic changes, foraminal stenosis most prominent at the L5-S1 level. Pain management is to the patient's PCM. I have taken care of his ingrown nail. I am going to discharge him on a potassium supplement with advice to follow-up with his PCM to track the bigeminy, and perhaps consult a back specialist. Orders Ordered: ED Orders 11/29/21 12:49 Urinalysis and Microscopic Stat 11/29/21 13:10 Trop I [Troponin I] Stat Discontinued Medications Potassium Chloride (Potassium Chloride 20 Meq/15 Ml Udc) 40 meq PO NOW ONE Stop: 11/29/21 10:24 Last Admin: 11/29/21 11:30 Dose: 40 meq Documented By: SB Vital Signs Vital signs: Vital Signs - 8 hr 11/29/21 12:01 11/29/21 12:01 11/29/21 12:30 Pulse Rate 74 68 Respiratory Rate 21 26 H Blood Pressure 159/70 H Pulse Oximetry 95 93 11/29/21 12:31 11/29/21 12:31 11/29/21 13:00 Pulse Rate 71 74 Respiratory Rate 25 H 23 Blood Pressure 133/63 Pulse Oximetry 93 96 11/29/21 13:17 11/29/21 13:17 11/29/21 13:30 Pulse Rate 73 Respiratory Rate 26 H Blood Pressure 167/80 H 162/72 H Pulse Oximetry 95 11/29/21 13:30 11/29/21 14:00 11/29/21 14:01 Pulse Rate 73 72 Respiratory Rate 23 22 Blood Pressure 156/67 H Pulse Oximetry 95 96 11/29/21 14:01 11/29/21 14:30 11/29/21 14:31 Pulse Rate 82 75 Respiratory Rate 22 22 Blood Pressure 151/70 H Pulse Oximetry 95 95 11/29/21 14:31 Pulse Rate 75 Respiratory Rate 19 Blood Pressure Pulse Oximetry 94 MDM - Arrhythmia/Palpitations Lab Data Result diagrams: 11/29/21 09:43 11/29/21 09:43 Labs: Lab Results 11/29/21 11/29/21 11/29/21 Range/Units 09:43 09:43 09:43 WBC 10.9 (4.5-11.0) X10^3/uL RBC 6.30 H (4.5-5.9) X10^6/uL Hgb 18.0 H (13.5-17.5) g/dL Hct 52.8 (41-53) % MCV 83.9 (80-100) fL MCH 28.6 (26-34) PG MCHC 34.1 (30-36) % RDW 14.7 (11.6-14.8) % Plt Count 301 (150-400) X10^3/uL Neut % (Auto) 60.8 (50-75) % Lymph % (Auto) 31.7 (25-40) % [place] % (Auto) 5.5 (3-14) % Eos % (Auto) 1.8 L (2-4) % Baso % (Auto) 0.2 (0-2) % Neut # (Auto) 6600 (1424-0510) /uL Lymph # (Auto) 3400 (7918-4688) /uL [place] # (Auto) 600 (0-900) /uL Eos # (Auto) 200 (0-450) /uL Baso # (Auto) 0 (0-100) /uL PT 11.6 (10.1-12.7) SECONDS INR 1.0 (0.9-1.3) APTT 32 (26-36) SECONDS Sodium 135 L (137-145) mmol/L Potassium 3.1 L (3.4-5.1) mmol/L Chloride 93 L (98-107) mmol/L Carbon Dioxide 29 (22-32) mmol/L BUN 12 (9-20) mg/dL Creatinine 0.76 (0.66-1.25) mg/dL Estimated GFR > 60 (>60) mL/min BUN/Creatinine Ratio 15.8 (6-22) Glucose 214 H (80-110) mg/dL Calcium 9.2 (8.4-10.2) mg/dL Magnesium 2.2 (1.6-2.3) mg/dL Total Bilirubin 0.7 (0.2-1.3) mg/dL AST 25 (17-59) IU/L ALT 29 (<50) IU/L Alkaline Phosphatase 62 (38-126) U/L Total Creatine Kinase 62 (55-170) U/L CK-MB (CK-2) TNP CK-MB (CK-2) Rel Index TNP Troponin I 0.051 H (0.01-0.034) ng/mL Total Protein 8.0 (6.3-8.2) g/dL Albumin 4.8 (3.5-5.0) g/dL Globulin 3.2 (1.7-4.1) g/dL Albumin/Globulin Ratio 1.5 (1.0-2.8) Lipase 34 (23-300) U/L Urine Color Urine Appearance Urine pH (4.5-8.0) Ur Specific [place] (1.000-1.035) Urine Protein (Negative) Urine Glucose (UA) (Negative) g/dL Urine Ketones (NEGATIVE) Urine Occult Blood (Negative) Urine Nitrate (Negative) Urine Bilirubin (NEGATIVE) Urine Urobilinogen (0.2) E.U./dL Ur Leukocyte Esterase (NEGATIVE) Urine RBC (0-5/HPF) Urine WBC (0-5/HPF) Urine Bacteria (None) Ur Culture Indicated? Micro UA Comment 11/29/21 11/29/21 11/29/21 Range/Units 09:43 12:49 13:10 WBC (4.5-11.0) X10^3/uL RBC (4.5-5.9) X10^6/uL Hgb (13.5-17.5) g/dL Hct (41-53) % MCV (80-100) fL MCH (26-34) PG MCHC (30-36) % RDW (11.6-14.8) % Plt Count (150-400) X10^3/uL Neut % (Auto) (50-75) % Lymph % (Auto) (25-40) % [place] % (Auto) (3-14) % Eos % (Auto) (2-4) % Baso % (Auto) (0-2) % Neut # (Auto) (7596-4564) /uL Lymph # (Auto) (7504-5043) /uL [place] # (Auto) (0-900) /uL Eos # (Auto) (0-450) /uL Baso # (Auto) (0-100) /uL PT (10.1-12.7) SECONDS INR (0.9-1.3) APTT (26-36) SECONDS Sodium (137-145) mmol/L Potassium (3.4-5.1) mmol/L Chloride (98-107) mmol/L Carbon Dioxide (22-32) mmol/L BUN (9-20) mg/dL Creatinine (0.66-1.25) mg/dL Estimated GFR (>60) mL/min BUN/Creatinine Ratio (6-22) Glucose (80-110) mg/dL Calcium (8.4-10.2) mg/dL Magnesium 2.2 (1.6-2.3) mg/dL Total Bilirubin (0.2-1.3) mg/dL AST (17-59) IU/L ALT (<50) IU/L Alkaline Phosphatase (38-126) U/L Total Creatine Kinase (55-170) U/L CK-MB (CK-2) CK-MB (CK-2) Rel Index Troponin I 0.036 H (0.01-0.034) ng/mL Total Protein (6.3-8.2) g/dL Albumin (3.5-5.0) g/dL Globulin (1.7-4.1) g/dL Albumin/Globulin Ratio (1.0-2.8) Lipase (23-300) U/L Urine Color Yellow Urine Appearance Clear Urine pH 7.0 (4.5-8.0) Ur Specific [place] <=1.005 (1.000-1.035) Urine Protein Negative (Negative) Urine Glucose (UA) 2+ H (Negative) g/dL Urine Ketones Trace H (NEGATIVE) Urine Occult Blood Negative (Negative) Urine Nitrate Negative (Negative) Urine Bilirubin Negative (NEGATIVE) Urine Urobilinogen 0.2 (0.2) E.U./dL Ur Leukocyte Esterase Negative (NEGATIVE) Urine RBC None seen (0-5/HPF) Urine WBC None seen (0-5/HPF) Urine Bacteria None seen (None) Ur Culture Indicated? Cult not indicated Micro UA Comment Microscopic normal Imaging Data Chest x-ray: Radiologist's Impresson: No acute cardiopulmonary process Lumbar CT: Radiologist's Impresson: Bones:? There is normal bony alignment. ? No suspicious lytic or blastic bony lesions.? No pars defects.? ? At the L2 level, the L3 level, the L4 level, and the L5 level, there is mild, chronic appearing central compression deformity.? Within L3, there is overall lucency, with vertical trabeculations seen, which is attributed to a stable vertebral body hemangioma. ? T12-L1:? Normal. ? L1-L2:? The disc height is well preserved.? Mild disc bulge is seen.? There is mild left-sided and moderate right-sided neural foraminal narrowing. Mild central canal narrowing is seen.? ? L2-L3:? The disc height is well preserved.? Mild to moderate disc bulge is seen, which is eccentric to the left.? There is at least moderate bilateral neural foraminal narrowing seen, right worse than left. Mild central canal narrowing is seen.? ? L3-L4:? The disc height is well preserved.? Moderate disc bulge is seen, which is eccentric to the left.? Mild to moderate facet hypertrophy is seen.? There is at least moderate bilateral neural foraminal narrowing seen, left worse than right.? At least moderate central canal narrowing is seen. ? L4-L5:? The disc height is well preserved.? At least moderate disc bulge is seen.? There is moderate right-sided and at least moderate left-sided facet hypertrophy.? Moderate to severe bilateral neural foraminal narrowing can be seen, left worse than right.? At least moderate central canal narrowing is seen. ? L5-S1:? Moderate to severe loss of disc height is seen.? There is a degree vertebral body fusion seen at this level, left worse than right.? There is [id number] left-sided and moderate right-sided neural foraminal narrowing.? There is at least moderate left-sided neural foraminal narrowing.? Mild right-sided neural foraminal narrowing is seen. Mild central canal narrowing is seen.? ? Soft tissues:? No retroperitoneal masses or hematomas.? Visualized aorta is normal in caliber.? Bilateral pelvic clips are seen. ? ? IMPRESSION:? No acute abnormality is seen. ? Chronic central compression deformities are seen at L2, L3, L4, and L5. ? Multiple levels of degenerative change are seen, which are worst at the L5-S1 level. ? ECG Data Attestation: I personally reviewed and interpreted this ECG as follows: (Normal sinus rhythm rate 71 beats per minute. Bigeminy. Left axis. Possible old anterior CA. No acute ST T wave changes.) Discharge Plan Departure Patient Disposition: Home Clinical Impression: Lumbosacral radiculopathy due to degenerative joint disease of spine, Bigeminy Instructions: Hypokalemia, DI for Lumbar Radiculopathy Activity Restrictions/Additional Instructions: Follow-up with Dr. Hardy regarding pain management of your back. Your potassium is slightly low, I will start you on a potassium supplement. Your irregular heart rhythm is not threatening, but should be tracked by your doctor. I would suggest consultation to a back specialist regarding your back arthritis. Return here as needed. Prescriptions: New potassium chloride 10 mEq capsule, extended release 10 meq PO DAILY Qty: 90 1RF No Action Lantus Solostar U-100 Insulin 100 UNIT/1 ML insulin pen 18 unit SQ HS Qty: 0 Rx Instructions: states takes 18-20 units at HS mupirocin 2 % ointment 1 applic topical BID Qty: 30 0RF omeprazole 40 mg capsule,delayed release(DR/EC) 40 mg PO BID Qty: 180 1RF ketoconazole 2 % shampoo 1 applic TOP 2XW Qty: 120 3RF albuterol sulfate 90 mcg/actuation HFA aerosol inhaler 2 puff INHALATION Q4H PRN (Reason: shortness of breath or wheezing) Qty: 18 6RF Label Comments: takes for allergies, rarely metoprolol succinate 50 mg tablet extended release 24 hr 50 mg PO QDAY Qty: 90 3RF triamterene-hydrochlorothiazid 37.5-25 mg tablet 1 tab PO QDAY Qty: 90 1RF rosuvastatin 10 mg tablet See Rx Instructions .ROUTE .COMPLEX Qty: 90 3RF Dose Instruction: TAKE ONE TABLET BY MOUTH ONCE DAILY Label Comments: States takes 5x a week due to occasional stomach upset Rx Instructions: TAKE ONE TABLET BY MOUTH ONCE DAILY. lisinopril 40 mg tablet 40 mg PO BID Qty: 180 0RF diazepam [Valium] 5 mg tablet 5 mg PO BID Qty: 60 4RF Label Comments: usually takes once to twice daily as needed amlodipine [Norvasc] 10 mg tablet 10 mg PO Q DAY Qty: 90 3RF metformin 500 mg tablet extended release 24 hr 500 mg PO DAILY Jardiance 10 mg tablet 10 mg PO DAILY azelastine 137 mcg (0.1 %) aerosol,spray 1 spray NASAL BID Qty: 30 4RF Label Comments: allergies or bronchial issues per patient Rx Instructions: administer into each nostril clotrimazole 1 % cream 1 applictn TOP BID 14 Days Qty: 12 8RF hydrocodone-acetaminophen 5-325 mg tablet 1 - 2 tab PO Q4HP PRN (Reason: pain) Qty: 240 0RF desonide 0.05 % cream 1 applic topical QD-BID PRN (Reason: rash) Qty: 60 2RF polyethylene glycol 3350 [Miralax] 17 gram/dose powder 17 gram PO DAILY Qty: 510 5RF Referrals: Christopher Hardy MD [Primary Care Provider] - Visit Report Forms: Patient Portal/API
[2021-11-29 10:24] LABS: Troponin I 0.051 ng/mL (0.01-0.034)
--- NOTE | 2021-11-29 10:40 | DI.CT.S_ITS ---
PROCEDURE: CT LUMBAR SPINE WO CON INDICATIONS: Lumbar pain. Right radiculopathy. TECHNIQUE: Noncontrast 3 mm thick sections acquired from the T12 level to the sacrum. Sagittal and coronal reformats were constructed. For radiation dose reduction, the following was used: automated exposure control. COMPARISON: [facility], CT, CT ABDOMEN PELVIS W CON, 04/03/2019, 3:42. [facility], CR, XR CHEST 1V, 11/29/2021, 9:47. FINDINGS: Image quality: Excellent. Bones: There is normal bony alignment. No suspicious lytic or blastic bony lesions. No pars defects. At the L2 level, the L3 level, the L4 level, and the L5 level, there is mild, chronic appearing central compression deformity. Within L3, there is overall lucency, with vertical trabeculations seen, which is attributed to a stable vertebral body hemangioma. T12-L1: Normal. L1-L2: The disc height is well preserved. Mild disc bulge is seen. There is mild left-sided and moderate right-sided neural foraminal narrowing. Mild central canal narrowing is seen. L2-L3: The disc height is well preserved. Mild to moderate disc bulge is seen, which is eccentric to the left. There is at least moderate bilateral neural foraminal narrowing seen, right worse than left. Mild central canal narrowing is seen. L3-L4: The disc height is well preserved. Moderate disc bulge is seen, which is eccentric to the left. Mild to moderate facet hypertrophy is seen. There is at least moderate bilateral neural foraminal narrowing seen, left worse than right. At least moderate central canal narrowing is seen. L4-L5: The disc height is well preserved. At least moderate disc bulge is seen. There is moderate right-sided and at least moderate left-sided facet hypertrophy. Moderate to severe bilateral neural foraminal narrowing can be seen, left worse than right. At least moderate central canal narrowing is seen. L5-S1: Moderate to severe loss of disc height is seen. There is a degree vertebral body fusion seen at this level, left worse than right. There is [id number] left-sided and moderate right-sided neural foraminal narrowing. There is at least moderate left-sided neural foraminal narrowing. Mild right-sided neural foraminal narrowing is seen. Mild central canal narrowing is seen. Soft tissues: No retroperitoneal masses or hematomas. Visualized aorta is normal in caliber. Bilateral pelvic clips are seen. IMPRESSION: No acute abnormality is seen. Chronic central compression deformities are seen at L2, L3, L4, and L5. Multiple levels of degenerative change are seen, which are worst at the L5-S1 level. Incidental note is made of: Stable L3 vertebral body hemangioma Bilateral pelvic clips Dictated by: Romario Angel M.D. on 11/29/2021 at 11:15 Approved by: Romario Angel M.D. on 11/29/2021 at 11:20
[2021-11-29 10:47] LABS: Magnesium 2.2 mg/dL (1.6-2.3)
[2021-11-29] MEDS: POTASSIUM CHLORIDE 20 MEQ/15 ML UDC 40 MEQ PO (11:30)
[2021-11-29 13:14] LABS: Appearance Urine UA CLEAR; Bilirubin Urine UA NEGATIVE (NEGATIVE); Color Urine UA YELLOW; Glucose Urine UA 2+ g/dL (Negative); Ketones Urine UA TRACE (NEGATIVE); Leukocyte Esterase Urine UA NEGATIVE (NEGATIVE); Nitrite Urine UA NEGATIVE (Negative); Occult Blood Urine UA NEGATIVE (Negative); Protein Urine UA NEGATIVE (Negative); Specific Gravity Urine UA <=1.005 (1.000-1.035); Urobilinogen Urine UA 0.2 E.U./dL (0.2)
[2021-11-29 13:17] LABS: Bacteria Urine None Seen; Culture Indicated Urine Cult Not Indicated; RBC Urine None Seen (0-5/HPF); Urine Comments Microscopic Normal; WBC Urine None Seen (0-5/HPF)
--- NOTE | 2021-11-29 13:18 | PC.NURSE ---
blood drawn after 5ml waste
[2021-11-29 14:01] LABS: Troponin I 0.036 ng/mL (0.01-0.034)
== END 2021-11-29 15:06 | disposition home or self-care (01) ==
PROVIDERS: Emergency Provider Emergency Medicine; Family Provider Internal Medicine; PCP Internal Medicine
DX: M54.17 Radiculopathy, lumbosacral region (principal); E87.6 Hypokalemia; I49.8 Other specified cardiac arrhythmias
CPT/HCPCS: 36415; 71045; 72131; 80053; 81001; 82550; 83690; 83735; 84484; 85025; 85610; 85730; 93005; 99284

== ENCOUNTER → 2021-12-12 09:23 | Outpatient (CLI) | payer OTHER, SELFPAY ==
[2019-09-23 14:35] VITALS: BMI 33.0
[2021-12-12 10:46] LABS: BUN Creatinine Ratio 13.6 (6-22); Blood Urea Nitrogen 12 mg/dL (9-20); Calcium 9.6 mg/dL (8.4-10.2); Carbon Dioxide 31 mmol/L (22-32); Chloride 90 mmol/L (98-107); Estimated Glomerular Filt Rate > 60 mL/min (>60); Glucose 165 mg/dL (80-110); HEMOLYSIS 15 (0-50); Magnesium 2.2 mg/dL (1.6-2.3); Potassium 3.3 mmol/L (3.4-5.1); Sodium 137 mmol/L (137-145)
== END ==
PROVIDERS: Family Provider Internal Medicine; PCP Internal Medicine; Referring Provider Internal Medicine; Visit Provider Internal Medicine
DX: I10 Essential (primary) hypertension (principal); E83.42 Hypomagnesemia; E87.6 Hypokalemia
CPT/HCPCS: 36415; 80048; 83735

== ENCOUNTER → 2021-12-18 14:52 | Outpatient (CLI) | payer OTHER, SELFPAY ==
[2019-09-23 14:35] VITALS: BMI 33.0
--- NOTE | 2022-01-08 14:27 | PM.CARDMON.1 ---
Manager Of Business Report Referral & Results Date Patient Seen: 12/18/21 Requesting provider: Christopher Hardy Indication: Cardiac arrhythmia Duration of monitoring (days): 14 Diary information: There was 1 patient diary entry This patient event was associated with sinus rhythm, PVC and ventricular bigeminy Data: Minimum heart rate identified was 45 beats per minute at 06:17 on 12/21/2021 Maximum sinus heart rate was 101 beats per minute at 16:02 on 12/18/2021 Maximum overall heart rate was 152 beats per minute at 17:13 on 12/22/2021 during a run of ventricular tachycardia Less than 1% of identified beats were supraventricular ectopic in origin which would classify them as rare Approximately 30% of identified beats were ventricular ectopic in origin which would classify them as frequent including a 23 minute run of ventricular bigeminy and a 1 minute 30 second run of ventricular trigeminy. There were no pauses of 3 seconds or longer or episodes of atrial fibrillation identified on this study Impression: 13+ day equipment monitor phototypesetting demonstrating significant ventricular dysrhythmia as above including runs of nonsustained ventricular tachycardia Clinical correlation suggested
== END ==
PROVIDERS: Family Provider Internal Medicine; PCP Internal Medicine; Referring Provider Internal Medicine; Visit Provider Internal Medicine
DX: I49.8 Other specified cardiac arrhythmias (principal)
CPT/HCPCS: 93246; 93248

== ENCOUNTER → 2022-01-16 14:14 | Outpatient (CLI) | payer OTHER, SELFPAY ==
[2019-09-23 14:35] VITALS: BMI 33.0
--- NOTE | 2022-01-16 14:16 | DI.ECHO.S_ITS ---
[facility]---------+ [facility] +---------+ : : [address] : : : : [id number] : : : : Phone: [phone]+ Echocardiogram Report + + :Name: JEFF CONTE Study Date: 01/16/2022 Height: 73 in : :[facility] ReadingLocation: Weight: 245 lb : : Gender: Male BSA: 2.3 m2 : :: 1945 Age: 76 yrs BP: 156/87 mmHg: :Reason For Study: BIGEMINY, PVC : :Ordering Physician: PASTOR, : :DANYEL Castle Performed By: Jennifer Owens : :Referring: DANYEL BAUMANN : + + Interpretation Summary 1) Borderline enlarged left ventricle with mildly to moderately reduced systolic function (EF 40-45%). 2) Normal right ventricular size and function. 3) There is mild aortic regurgitation. 4) There is mild aortic stenosis. 5) No prior Echo available for coparison. Procedure: A two-dimensional transthoracic echocardiogram with color flow and Doppler was performed. The study quality was technically adequate. There is no prior echocardiogram noted for this patient. The patient had frequent PVCs during the exam. Patient was in bigeminy throughout exam. Left Ventricle: The left ventricle is borderline dilated. Left ventricular wall thickness is mildly increased. Ejection fraction is difficult to estimate due to beat to beat variability. The ejection fraction is estimated to be 40- 45%. There is mild to moderate global hypokinesis of the left ventricle. Right Ventricle: The right ventricle is normal in size and function. Atria: The left atrium is moderately dilated. The right atrium is mildly dilated. There is no Doppler evidence for an interatrial shunt. Mitral Valve: The mitral valve is normal in structure and function. There is mild mitral regurgitation. Aortic Valve: The aortic valve is trileaflet. The aortic valve opens well. The peak aortic velocity is 2.08 m/sec. The aortic valve mean gradient is 9 mmHg. There is mild aortic stenosis. There is mild aortic regurgitation. Tricuspid Valve: The tricuspid valve is normal in structure and function. There is mild tricuspid regurgitation. Pulmonic Valve: The pulmonic valve leaflets are thin and pliable; valve motion is normal. There is trace pulmonic regurgitation. Great Vessels: The aortic root is mildly dilated. The dimensions of the ascending aorta are normal. The IVC is dilated (diameter is greater than 2.1 cm) yet it collapses greater than 50% with a sniff. This suggests a right atrial pressure of 8 mm Hg. Pericardium/ Pleura There is no pericardial effusion. There is no pleural effusion. MMode/2D Measurements & Calculations LVIDd: 5.7 cm LVOT diam: 2.1 cm LVIDs: 4.8 cm Ao root diam: 4.0 cm FS: 16.6 % asc Aorta Diam: 3.6 cm IVSd: 1.1 cm Ao Arch Diam (Prox Trans): 2.3 cm LVPWd: 0.98 cm LV estevez. diameter/BSA (cm/m^2): 2.4 LV sys. diameter/BSA (cm/m^2): 2.0 LA A2 area: 29.6 cm2 RA long axis: 5.4 cm LA A4 area: 27.3 cm2 RA area: 23.5 cm2 LA length (vol): 6.2 cm RA vol: 87.4 ml LA vol: 111.2 ml RA : 37.3 ml/m2 LA vol index: 47.4 ml/m2 IVC diam: 2.5 cm RVD1 (basal): 4.0 cm RVD2 (mid): 3.3 cm TAPSE: 2.1 cm Doppler Measurements & Calculations Ao V2 max: 208.7 cm/sec LVOT Max Russ: 110.1 cm/sec Ao V2 mean: 138.1 cm/sec LV V1 max P.8 mmHg Ao max P.4 mmHg LV V1 VTI: 23.7 cm Ao mean P.7 mmHg DANNY(I,D): 1.9 cm2 Ao V2 VTI: 43.4 cm DANNY(V,D): 1.8 cm2 sev ratio: 0.55 DANNY indexed to BSA (cm^2/m^2): 0.81 AI P1/2t: 695.0 msec AI dec slope: 163.6 cm/sec2 MV E max russ: 103.5 cm/sec PA V2 max: 124.7 cm/sec MV A max russ: 89.0 cm/sec PA V2 mean: 83.8 cm/sec MV E/A: 1.2 PA mean P.2 mmHg Med Peak E' Russ: 6.1 cm/sec PA pr(Accel): 46.5 mmHg E/E' med: 17.0 Lat Peak E' Russ: 8.0 cm/sec E/E' lat: 13.0 E/e' average: 15.0 MV dec time: 0.20 sec SV(LVOT): 82.4 ml Reading Physician:06:42 PM
== END ==
PROVIDERS: Family Provider Internal Medicine; PCP Internal Medicine; Referring Provider Internal Medicine; Visit Provider Internal Medicine
DX: I08.3 Combined rheumatic disorders of mitral, aortic and tricuspid valves (principal); I77.810 Thoracic aortic ectasia; I49.3 Ventricular premature depolarization; I49.8 Other specified cardiac arrhythmias
CPT/HCPCS: 93306

== ENCOUNTER 2022-03-30 20:22 | Emergency (ER) | payer OTHER, SELFPAY ==
[2019-09-23 14:35] VITALS: BMI 33.0
[2022-03-30 20:31] VITALS: BP 161/83; PULSE 79; RESP 16; TEMP 35.8; O2SAT 95; BMI 31.2
[2022-03-30 22:00] VITALS: PULSE 75; O2SAT 96
--- NOTE | 2022-03-30 22:08 | ED_ITS ---
HPI - General Adult General Chief complaint: Urogenital-Male Stated complaint: Thinks UTI Time Seen by Provider: 03/30/22 21:19 Source: patient Mode of arrival: Ambulatory History of Present Illness HPI narrative: 76-year-old gentleman with a history of diabetes, hypertension, hyperlipidemia, chronically low potassium, chronic constipation and COPD presents with redness and irritation in the scrotal area that is getting worse. Has had this previously and was seen by his primary care doctor. He has prescriptions for both clotrimazole and desonide and isn't sure which he is actually been using over the last couple of days. Complaining that his penis is more irritated around the glans and he is having some abdominal bloating which precipitated his emergency room visit today. He denies any fevers, cough, chills, vomiting notes an episode of diarrhea yesterday that was a single time and a normal bowel movement today. He is not having any chest pain, palpitations or headache. Related Data Home Medications Medication Instructions Recorded Confirmed insulin glargine 100 unit/mL (3 18 unit SQ HS ##0 12/08/15 12/12/21 mL) subcutaneous pen (Lantus Solostar U-100 Insulin) empagliflozin 10 mg tablet 10 mg PO DAILY 05/06/20 12/12/21 (Jardiance) metformin 500 mg tablet,extended 500 mg PO DAILY 05/06/20 12/12/21 release 24 hr Previous Rx's Medication Instructions Recorded azelastine 137 mcg (0.1 %) nasal 1 spray intranasal BID #30 mL 08/25/18 spray aerosol polyethylene glycol 3350 17 17 gram PO DAILY #510 grams 04/06/19 gram/dose oral powder (Miralax) clotrimazole 1 % topical cream 1 applictn topical BID 2 weeks #12 09/23/19 grams mupirocin 2 % topical ointment 1 applic topical BID #30 grams 04/01/20 omeprazole 40 mg capsule,delayed 40 mg PO BID #180 caps 05/27/20 release ketoconazole 2 % shampoo 1 applic topical 2XW #120 mL 09/26/20 albuterol sulfate 90 mcg/actuation 2 puff inhalation Q4H PRN 12/06/20 aerosol inhaler shortness of breath or wheezing #18 grams rosuvastatin 10 mg tablet See Rx Instructions .Route 09/04/21 .COMPLEX #90 tabs desonide 0.05 % topical cream 1 applic topical QD-BID PRN rash 10/27/21 #60 grams amlodipine 10 mg tablet (Norvasc) 10 mg PO Q DAY #90 tabs 11/27/21 potassium chloride 10 mEq 10 meq PO DAILY #90 caps 11/29/21 capsule,extended release metoprolol succinate 50 mg 50 mg PO QDAY ##90 12/20/21 tablet,extended release 24 hr diazepam 5 mg tablet (Valium) 5 mg PO BID #60 tabs 01/11/22 triamterene 37.5 1 tab PO QDAY #90 tabs 01/17/22 mg-hydrochlorothiazide 25 mg tablet hydrocodone 5 mg-acetaminophen 325 1 - 2 tab PO Q4HP PRN pain #240 03/08/22 mg tablet tabs lisinopril 40 mg tablet 40 mg PO BID #180 tabs 03/14/22 cephalexin 500 mg capsule 500 mg PO TID 5 days #15 caps 03/31/22 nystatin 100,000 unit/gram topical 1 applic topical QID #60 grams 03/31/22 powder Allergies Allergy/AdvReac Type Severity Reaction Status Date / Time metronidazole Allergy Severe NEUROPATHY Verified 12/12/21 08:58 IN THE FEET naproxen Allergy Severe TONGUE Verified 12/12/21 08:58 SWELLING, ITCHY Sulfa (Sulfonamide Allergy Mild UNSURE Verified 12/12/21 08:58 Antibiotics) glipizide [GLIPIZIDE] AdvReac Intermediate sick all Verified 12/12/21 08:58 over metformin AdvReac Intermediate GASTRIC Verified 12/12/21 08:58 UNEASE, LOOSE STOOL acetaminophen [From Percocet] AdvReac Mild NAUSEA Verified 12/12/21 08:58 oxycodone [From Percocet] AdvReac Mild NAUSEA Verified 12/12/21 08:58 Review of Systems Review of Systems Narrative: Remainder of complete review of systems is otherwise unremarkable except for that included in the HPI. Patient History Medical History Anxiety (04/30/13) Controlled type 2 diabetes mellitus without complication (03/21/12) Foot pain Hay fever History of Clostridium difficile colitis (~2011) History of malignant neoplasm of prostate (06/16/15) Hyperlipidemia Hypertension (~1993) Idiopathic peripheral neuropathy (03/12/13) Uncomplicated opioid dependence Surgical History Ankle pain (~1996) Status post radical cystoprostatectomy (~1994) Family History Father Type II diabetes mellitus Heart disease Grandfather Heart disease Mother Lung cancer Grandfather Prostate cancer Social History marital status: unmarried,single number of children: 0 household members: none lives independently: Yes caregiver/support person: No housing: house pets and animals: Yes education level: college occupational status: other current occupational exposures/hazards: No 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: Religious leisure activities: other Smoking Status: Never smoker Tobacco: How many years used: 0 quit status: quit date established second hand exposure: No alcohol intake: never substance use type: does not use Smoking Status: Never smoker alcohol intake frequency: holidays/special occasions only Substance Use Type: does not use Exam Initial Vital Signs Initial Vital Signs: Vital Signs Temperature 96.4 F L 03/30/22 20:31 Pulse Rate 79 03/30/22 20:31 Respiratory Rate 16 03/30/22 20:31 Blood Pressure 161/83 H 03/30/22 20:31 Pulse Oximetry 95 03/30/22 20:31 Oxygen Delivery Method 03/30/22 20:31 General: Healthy appearing, in no acute distress. Able to give a complete and coherent history. Well-nourished well-developed HEENT: Moist mucous membranes, normal sclera with reactive pupils, Respiratory: Lungs are clear to auscultation, no wheezing no rales no rhonchi. Full and symmetrical air movement Cardiac: Regular rate and rhythm no murmurs no bruits Abdomen: Soft, distended, nontender, good bowel tones, no flank pain Skin: Warm and dry, small psoriatic plaques appreciated. Groin: Yeast intertrigo behind the scrotum and between the legs and the upper thighs. He has a chronic birthmark rash over his scrotum(small violaceous papules) that is unchanged. Has increasing erythema over the shaft and glans of his penis and beefy red irritation underneath the intertrigo type infection suggesting bacterial superinfection. There is nothing on his exam that suggests Gael's gangrene at this time there is no penile discharge. He has no inguinal adenopathy Neurologic: Grossly neurologically intact with no obvious asymmetries or abnormalities Extremities: No trauma, well perfused Psych: Cooperative, appropriate insight and affect Course Orders Ordered: ED Orders 03/30/22 22:18 Complete Blood Count AUTO DIFF Stat Comprehensive Metabolic Panel Stat Vital Signs Vital signs: Vital Signs - 8 hr 03/30/22 20:31 03/30/22 22:00 03/30/22 22:30 Temperature 96.4 F L Pulse Rate 79 75 Respiratory Rate 16 Blood Pressure 161/83 H 177/77 H Pulse Oximetry 95 96 Oxygen Delivery Method Room Air 03/30/22 22:30 03/30/22 23:00 03/30/22 23:01 Temperature Pulse Rate 92 H 79 Respiratory Rate 13 10 L Blood Pressure 149/89 H Pulse Oximetry 95 95 Oxygen Delivery Method 03/30/22 23:01 Temperature Pulse Rate 79 Respiratory Rate 13 Blood Pressure Pulse Oximetry 96 Oxygen Delivery Method Room Air Medical Decision Making Lab Data 03/30/22 22:18 03/30/22 22:18 Labs: Lab Results 03/30/22 03/30/22 Range/Units 22:18 22:18 WBC 14.8 H (4.5-11.0) X10^3/uL RBC 6.14 H (4.5-5.9) X10^6/uL Hgb 17.1 (13.5-17.5) g/dL Hct 50.2 (41-53) % MCV 81.8 (80-100) fL MCH 27.8 (26-34) PG MCHC 34.1 (30-36) % RDW 15.3 H (11.6-14.8) % Plt Count 253 (150-400) X10^3/uL Neut % (Auto) 74.0 (50-75) % Lymph % (Auto) 19.5 L (25-40) % Rains % (Auto) 5.4 (3-14) % Eos % (Auto) 0.7 L (2-4) % Baso % (Auto) 0.4 (0-2) % Neut # (Auto) 14602 H (3120-5848) /uL Lymph # (Auto) 2900 (5782-2642) /uL Rains # (Auto) 800 (0-900) /uL Eos # (Auto) 100 (0-450) /uL Baso # (Auto) 100 (0-100) /uL Sodium 135 L (137-145) mmol/L Potassium 3.2 L (3.4-5.1) mmol/L Chloride 98 (98-107) mmol/L Carbon Dioxide 24 (22-32) mmol/L BUN 14 (9-20) mg/dL Creatinine 0.65 L (0.66-1.25) mg/dL Estimated GFR > 60 (>60) mL/min BUN/Creatinine Ratio 21.5 (6-22) Glucose 155 H (80-110) mg/dL Calcium 9.1 (8.4-10.2) mg/dL Total Bilirubin 0.9 (0.2-1.3) mg/dL AST 28 (17-59) IU/L ALT 51 H (<50) IU/L Alkaline Phosphatase 65 (38-126) U/L Total Protein 7.6 (6.3-8.2) g/dL Albumin 4.7 (3.5-5.0) g/dL Globulin 2.9 (1.7-4.1) g/dL Albumin/Globulin Ratio 1.6 (1.0-2.8) Urine Dip Bedside Urine Glucose 1000 mg/dl Bedside Urine Bilirubin - Negative Bedside Urine Ketone - Negative Urine Specific [place] 1.015 Bedside Urine Occult Blood - Negative Bedside Urine pH 6.0 Bedside Urine Protein - Negative Bedside Urine Urobilinogen - Negative Bedside Urine Nitrite - Negative Bedside Urine Leukocytes - Negative Esterase Point of care testing: Urine Dip Bedside Urine Glucose 1000 mg/dl Bedside Urine Bilirubin - Negative Bedside Urine Ketone - Negative Urine Specific [place] 1.015 Bedside Urine Occult Blood - Negative Bedside Urine pH 6.0 Bedside Urine Protein - Negative Bedside Urine Urobilinogen - Negative Bedside Urine Nitrite - Negative Bedside Urine Leukocytes - Negative Esterase MDM Narrative Medical decision making narrative: CC: Rash in the groin that is getting worse. This is a recurrent episode and exacerbation of a prior issue with systemic symptoms and undetermined prognosis Complicating co-morbidities: Diabetes, currently taking empagliflozin Corroborating data: Data collected from: patient, Social determinants of health that may influence the patients condition: [place] and multiple Acres to care for Medical records reviewed: Primary care notes are reviewed Differential considered: Gael's gangrene, yeast intertrigo, bacterial superinfection, urinary tract infection sexually transmitted infection, bowel obstruction, intra-abdominal infection, diabetic ketoacidosis Exam documented above, pertinent findings include: Intertrigo presentation in the groin, no tachycardia or hypotension. Mild erythema over the penile shaft and glans no penile discharge Lab Test results independently reviewed as above. Pertinent findings: CBC shows a mild leukocytosis without significant left shift, no evident anemia Show his consistent hypokalemia with normal renal function mildly elevated glucose minimally elevated ALT with remainder of liver studies unremarkable Chemistries Discussion: 76-year-old gentleman with a rash developing in the intertriginous areas of his groin that I believe is most consistent with simply yeast and the reason he is having increasing pain is mild bacterial superinfection likely strep given the bright red beefy appearance. He has 2 salves and he is not sure which he is using 1 looks like it is clotrimazole in the other is a desonide topical cream. Neither seem to be effective. At this point there is no evidence of sepsis and I do not suspect Gael's gangrene. We very clearly discussed this complication and his very high risk given his age, diabetes and the Jardiance that he takes. Talked about keeping the area is dry as possible. Will ask him to stop using the salves that he currently has not given a prescription for nystatin powder as well as 5 days of Keflex for concern for bacterial superinfection of this rash. There is no evidence of intra-abdominal infection or other life-threatening issues with today's visit. Asked him to return to the emergency department should he have any increase or worsening of symptoms within the next 24 hours. He expresses clear understanding. He is safe for discharge home Disposition: see below, along with detailed discharge instructions that have been reviewed with patient as well as indications for ED re-evaluation and additional outpatient follow up Discharge Plan Departure Patient Disposition: Home Clinical Impression: Yeast dermatitis of penis, Intertrigo of genitocrural region due to Lisa species Cellulitis Qualifiers: Site of cellulitis: other site Qualified Code(s): L03.818 - Cellulitis of other sites Instructions: DI for Lisa Diaper Rash Activity Restrictions/Additional Instructions: Thank you for coming in today I think that you have a yeast infection through your groin, behind your scrotum and in the upper portion of your thighs. I am slightly concerned that the skin is moist and irritated enough that you are beginning to get a bacterial superinfection in this same area including along the shaft and glans of your penis. Keeping the area absolutely dry, taking a shower, drying with a towel and then using a hair metropolitan editor to make sure that the skin is as dry as you can get and then applying nystatin powder I think will be helpful in getting the yeast component under control. Doing all that you can to keep your sugars under excellent control can also help. I am going to give you 5 days of Keflex because I am concerned with bacterial superinfection. With your diabetes and some of your medications you are at risk for an infection that is life-threatening and do starts in the groin. There is no evidence of this tonight however if you are getting worse in any way you need to come back to the emergency department. This includes fevers, increasing pain, increasing redness or tenderness in the groin, scrotum or testicles. I do want you to call and schedule an appointment to see Dr. Hardy or 1 of his partners early in the week to make sure that all is improving. I am not sure which topical agents you were using but I would recommend against the desonide cream. This is a steroid and I do not think it will be helpful. The clotrimazole is an antifungal treatment. I have given you a prescription for nystatin powder to use instead - hopefully this can help with keeping the a eliazar dry. Prescriptions for Keflex and the nystatin powder have been electronically transmitted to [facility] If you find that you are getting worse or develop any new symptoms, please feel free to return to the emergency department for further evaluation. Prescriptions: New cephalexin 500 mg capsule 500 mg PO TID 5 Days Qty: 15 0RF nystatin 100,000 unit/gram powder 1 applic topical QID Qty: 60 4RF No Action Lantus Solostar U-100 Insulin 100 UNIT/1 ML insulin pen 18 unit SQ HS Qty: 0 Rx Instructions: states takes 18-20 units at HS mupirocin 2 % ointment 1 applic topical BID Qty: 30 0RF omeprazole 40 mg capsule,delayed release(DR/EC) 40 mg PO BID Qty: 180 1RF ketoconazole 2 % shampoo 1 applic TOP 2XW Qty: 120 3RF albuterol sulfate 90 mcg/actuation HFA aerosol inhaler 2 puff INHALATION Q4H PRN (Reason: shortness of breath or wheezing) Qty: 18 6RF Label Comments: takes for allergies, rarely rosuvastatin 10 mg tablet See Rx Instructions .ROUTE .COMPLEX Qty: 90 3RF Dose Instruction: TAKE ONE TABLET BY MOUTH ONCE DAILY Label Comments: States takes 5x a week due to occasional stomach upset Rx Instructions: TAKE ONE TABLET BY MOUTH ONCE DAILY. amlodipine [Norvasc] 10 mg tablet 10 mg PO Q DAY Qty: 90 3RF metoprolol succinate 50 mg tablet extended release 24 hr 50 mg PO QDAY Qty: 90 3RF diazepam [Valium] 5 mg tablet 5 mg PO BID Qty: 60 4RF Label Comments: usually takes once to twice daily as needed triamterene-hydrochlorothiazid 37.5-25 mg tablet 1 tab PO QDAY Qty: 90 1RF hydrocodone-acetaminophen 5-325 mg tablet 1 - 2 tab PO Q4HP PRN (Reason: pain) Qty: 240 0RF lisinopril 40 mg tablet 40 mg PO BID Qty: 180 0RF metformin 500 mg tablet extended release 24 hr 500 mg PO DAILY Jardiance 10 mg tablet 10 mg PO DAILY azelastine 137 mcg (0.1 %) aerosol,spray 1 spray NASAL BID Qty: 30 4RF Label Comments: allergies or bronchial issues per patient Rx Instructions: administer into each nostril clotrimazole 1 % cream 1 applictn TOP BID 14 Days Qty: 12 8RF desonide 0.05 % cream 1 applic topical QD-BID PRN (Reason: rash) Qty: 60 2RF potassium chloride 10 mEq capsule, extended release 10 meq PO DAILY Qty: 90 1RF polyethylene glycol 3350 [Miralax] 17 gram/dose powder 17 gram PO DAILY Qty: 510 5RF Referrals: Christopher Hardy MD [Primary Care Provider] - Stand Alone Forms: Patient Portal/API
--- NOTE | 2022-03-30 22:24 | PC.NURSE ---
Patient is alert and oriented x4/4, speaks in clear and coherent sentences. Pt reports concern for worsening fungal infection on his groin, states he has been using a topical fungal medication but today it is worse. Redness assessed to penis and lower groin area. Reports normal urination, pt states he tracks his urination with a cup for measurement at home. Pt states he felt off today and warm, reports fever recorded at home. He feels gassy, large bowel movement yesterday. Pt states he is diabetic, had a sandwich and 2 bananas for dinner tonight. Hooked pt up to vitals monitor and noted frequent PVC's, pt is asymptomatic, reports recent Holter monitor, and scheduled cardiology appointment soon. I have had an arrythmia for years, my PCP and Compliance Engineer are aware. Pt reports back discomfort, no worse than his ongoing chronic back pain, took a hydrocodone/acetaminophen for pain, reports he has been on this medication for 10 years for the pain.
[2022-03-30 22:27] LABS: Add Manual Diff / Slide Review NO; Basophils Absolute Auto 100 /uL (0-100); Basophils Percent Auto 0.4 % (0-2); Eosinophils Absolute Auto 100 /uL (0-450); Eosinophils Percent Auto 0.7 % (2-4); Hematocrit 50.2 % (41-53); Hemoglobin 17.1 g/dL (13.5-17.5); Lymphocytes Absolute Auto 2900 /uL (1100-4500); Lymphocytes Percent Auto 19.5 % (25-40); Mean Corpuscular HGB Conc 34.1 % (30-36); Mean Corpuscular Hemoglobin 27.8 PG (26-34); Mean Corpuscular Volume 81.8 fL (80-100); Monocytes Absolute Auto 800 /uL (0-900); Monocytes Percent Auto 5.4 % (3-14); Neutrophils Absolute Auto 11000 /uL (1500-7000); Platelet Count 253 X10^3/uL (150-400); Red Blood Cell Count 6.14 X10^6/uL (4.5-5.9); Red Cell Distribution Width 15.3 % (11.6-14.8); White Blood Cell Count 14.8 X10^3/uL (4.5-11.0)
[2022-03-30 22:30] VITALS: BP 177/77; PULSE 92; RESP 13; O2SAT 95
[2022-03-30 22:37] LABS: Alanine Aminotransferase 51 IU/L (<50); Albumin 4.7 g/dL (3.5-5.0); Albumin Globulin Ratio 1.6 (1.0-2.8); Alkaline Phosphatase 65 U/L (38-126); Aspartate Aminotransferase 28 IU/L (17-59); BUN Creatinine Ratio 21.5 (6-22); Bilirubin Total 0.9 mg/dL (0.2-1.3); Blood Urea Nitrogen 14 mg/dL (9-20); Calcium 9.1 mg/dL (8.4-10.2); Carbon Dioxide 24 mmol/L (22-32); Chloride 98 mmol/L (98-107); Estimated Glomerular Filt Rate > 60 mL/min (>60); Globulin 2.9 g/dL (1.7-4.1); Glucose 155 mg/dL (80-110); HEMOLYSIS 29 (0-50); Potassium 3.2 mmol/L (3.4-5.1); Sodium 135 mmol/L (137-145); Total Protein 7.6 g/dL (6.3-8.2)
[2022-03-30 23:00] VITALS: PULSE 79; RESP 10; O2SAT 95
[2022-03-30 23:01] VITALS: BP 149/89; PULSE 79; RESP 13; O2SAT 96
[2022-03-30 23:30] VITALS: BP 151/82; PULSE 76; RESP 13; O2SAT 94
[2022-03-31] VITALS: BP 146/76; PULSE 74; RESP 13; O2SAT 94
[2022-03-31] MEDS: cephALEXin 250 MG CAPSULE 500 MG PO (00:23)
== END 2022-03-31 00:39 | disposition home or self-care (01) ==
PROVIDERS: Emergency Provider Emergency Medicine; Family Provider Internal Medicine; PCP Internal Medicine
DX: L03.818 Cellulitis of other sites (principal); B37.49 Other urogenital candidiasis; L30.4 Erythema intertrigo; Z79.899 Other long term (current) drug therapy
CPT/HCPCS: 36415; 80053; 81003; 85025; 99283

== ENCOUNTER → 2022-04-26 10:11 | Outpatient (CLI) | payer OTHER, SELFPAY ==
[2019-09-23 14:35] VITALS: BMI 33.0
[2022-04-26 11:58] LABS: Hemoglobin A1C% w Est Avg Glu 8.1 % (4.0-6.0)
[2022-04-26 12:22] LABS: Prostate Specific Antigen < 0.064 ng/mL (0.10-4.00)
== END ==
PROVIDERS: Internal Medicine; Family Provider Internal Medicine; PCP Internal Medicine; Referring Provider Internal Medicine; Visit Provider Internal Medicine
DX: E11.9 Type 2 diabetes mellitus without complications (principal); Z85.46 Personal history of malignant neoplasm of prostate; Z79.4 Long term (current) use of insulin
CPT/HCPCS: 36415; 83036; 84153

== ENCOUNTER → 2022-10-17 10:31 | Outpatient (CLI) | payer OTHER, SELFPAY ==
[2019-09-23 14:35] VITALS: BMI 33.0
--- NOTE | 2022-10-17 10:32 | DI.RAD.S_ITS ---
PROCEDURE: XR LUMBAR SPINE MIN 4V INDICATIONS: BACK PAIN TECHNIQUE: 5 views of the lumbar spine were acquired, including bilateral oblique views. COMPARISON: None. FINDINGS: Bones: 5 nonrib-bearing vertebrae are present. There is normal bony alignment. No vertebral body compression fractures. No suspicious bony lesions. Moderate disc height loss at L5-S1. Mild disc height loss at remaining levels. Mild biconcave vertebral body height loss at L2. Facet arthrosis L3 through S1. Soft tissues: Overlying bowel gas pattern is normal. No suspicious soft tissue calcifications. Oblique images: No pars defects. IMPRESSION: Mild biconcave vertebral body height loss at L2. This appears chronic. Mild to moderate, multilevel degenerative disc disease and lower lumbar facet arthrosis. Dictated by: Andrzej Theodore M.D. on 10/17/2022 at 11:33 Approved by: Andrzej Theodore M.D. on 10/17/2022 at 11:34
== END ==
PROVIDERS: Family Provider Internal Medicine; PCP Internal Medicine; Referring Provider Physical Medicine & Rehabilitation; Visit Provider Physical Medicine & Rehabilitation
DX: M48.062 Spinal stenosis, lumbar region with neurogenic claudication (principal); M51.36 Other intervertebral disc degeneration, lumbar region; M47.816 Spondylosis without myelopathy or radiculopathy, lumbar region; M47.817 Spondylosis without myelopathy or radiculopathy, lumbosacral region; G60.9 Hereditary and idiopathic neuropathy, unspecified; S32.020S Wedge compression fracture of second lumbar vertebra, sequela; M54.9 Dorsalgia, unspecified
CPT/HCPCS: 72110; 99214

== ENCOUNTER → 2022-10-30 15:03 | Outpatient (CLI) | payer OTHER, SELFPAY ==
[2022-10-17 16:10] VITALS: BMI 33.0
--- NOTE | 2022-10-30 15:04 | DI.MRI.S_ITS ---
PROCEDURE: MR LUMBAR SPINE WO CON INDICATIONS: Lumbar stenosis history of fractures TECHNIQUE: Noncontrast sagittal T1 spin echo and T2 fast echo, sagittal STIR, and T2 fast spin echo through the lumbar spine. In cases with scoliosis, additional coronal T2 fast spin echo may be performed. COMPARISON: [facility], RG, MRI L-SPINE W/O, 12/09/2003, 12:44. [facility], CR, XR LUMBAR SPINE MIN 4V, 10/17/2022, 10:46. FINDINGS: Image quality: Excellent. Alignment and Curvature: 5 lumbar type vertebral bodies are present by plain film. Alignment is normal. Bone Marrow: Marrow is of normal overall signal. No acute vertebral body compression fractures. Mild reactive signal throughout the endplates of the lumbar and lower thoracic spine. Spinal Cord: Conus medullaris terminates at the lower L1 level. Visualized cord demonstrates normal signal and size. Paraspinous Soft Tissues: No paravertebral masses. T12-L1: Mild disc height loss and desiccation. Mild diffuse disc bulge. No significant canal nor foraminal stenosis. L1-L2: Mild disc height loss and desiccation. Mild diffuse disc bulge. Mild epidural lipomatosis. Mild canal stenosis. Mild bilateral foraminal stenosis. L2-L3: Mild disc desiccation and diffuse disc bulge. Mild facet and ligamentum flavum hypertrophy. Mild epidural lipomatosis. Mild canal stenosis. Mild bilateral foraminal stenosis. No significant change. L3-L4: Mild disc desiccation and diffuse disc bulge. Mild facet and ligamentum flavum hypertrophy. Mild epidural lipomatosis. Mild canal stenosis. Mild bilateral foraminal stenosis, increased from the prior examination. L4-L5: Mild disc desiccation and diffuse disc bulge. Mild facet and ligamentum flavum hypertrophy. Mild epidural lipomatosis. Increased, mild canal stenosis. Increased, moderate bilateral foraminal stenosis. L5-S1: Moderate disc height loss and desiccation. Mild diffuse disc bulge. Mild bilateral facet hypertrophy. Increased, mild canal stenosis. Increased, moderate left subarticular foraminal stenosis. No right foraminal stenosis. IMPRESSION: 1. Multilevel degenerative disc and facet disease, as well as ligamentum flavum hypertrophy and epidural lipomatosis. 2. Mild multilevel canal stenoses. 3. Multilevel foraminal stenoses, worst at L4-L5 and L5-S1 where there are moderate foraminal stenoses. Dictated by: Rozina Terry M.D. on 10/30/2022 at 16:13 Approved by: Rozina Terry M.D. on 10/30/2022 at 16:15
== END ==
PROVIDERS: Family Provider Internal Medicine; PCP Internal Medicine; Referring Provider Physical Medicine & Rehabilitation; Visit Provider Physical Medicine & Rehabilitation
DX: M48.061 Spinal stenosis, lumbar region without neurogenic claudication (principal); M48.07 Spinal stenosis, lumbosacral region; S32.000A Wedge compression fracture of unspecified lumbar vertebra, initial encounter for closed fracture; M51.36 Other intervertebral disc degeneration, lumbar region; M47.816 Spondylosis without myelopathy or radiculopathy, lumbar region; M51.37 Other intervertebral disc degeneration, lumbosacral region; M47.817 Spondylosis without myelopathy or radiculopathy, lumbosacral region
CPT/HCPCS: 72148

== ENCOUNTER → 2022-11-01 08:07 | Outpatient (CLI) | payer OTHER, SELFPAY ==
[2022-10-17 16:10] VITALS: BMI 33.0
[2022-11-01 10:05] LABS: Hemoglobin A1C% w Est Avg Glu 7.9 % (4.0-6.0)
[2022-11-01 10:44] LABS: Alanine Aminotransferase 43 IU/L (<50); Albumin 4.5 g/dL (3.5-5.0); Albumin Globulin Ratio 1.7 (1.0-2.8); Alkaline Phosphatase 55 U/L (38-126); Aspartate Aminotransferase 33 IU/L (17-59); BUN Creatinine Ratio 18.5 (6-22); Bilirubin Total 0.8 mg/dL (0.2-1.3); Blood Urea Nitrogen 17 mg/dL (9-20); Calcium 8.7 mg/dL (8.4-10.2); Carbon Dioxide 27 mmol/L (22-32); Chloride 94 mmol/L (98-107); Cholesterol 103 mg/dL (140-199); Estimated Glomerular Filt Rate > 60 mL/min (>60); Globulin 2.6 g/dL (1.7-4.1); Glucose 125 mg/dL (80-110); HDL Cholesterol 41 mg/dL (40-60); HEMOLYSIS < 15 (0-50); LDL Cholesterol Calculated 20 mg/dL (<100); Potassium 3.3 mmol/L (3.4-5.1); Sodium 133 mmol/L (137-145); Total Protein 7.1 g/dL (6.3-8.2); Triglycerides 211 mg/dL (35-150)
[2022-11-01 10:49] LABS: Creatinine Urine Random 87.5 mg/dL
[2022-11-01 10:50] LABS: Albumin 4.5 g/dL (3.5-5.0); BUN Creatinine Ratio 18.9 (6-22); Blood Urea Nitrogen 17 mg/dL (9-20); Calcium 8.6 mg/dL (8.4-10.2); Carbon Dioxide 24 mmol/L (22-32); Chloride 94 mmol/L (98-107); Estimated Glomerular Filt Rate > 60 mL/min (>60); Glucose 125 mg/dL (80-110); HEMOLYSIS 22 (0-50); Phosphorous 3.4 mg/dL (2.3-3.7); Potassium 3.4 mmol/L (3.4-5.1); Sodium 132 mmol/L (137-145)
[2022-11-01 10:51] LABS: Microalbumi Creatinin Ratio Ur 54.8 ug/mg CR (<30); Microalbumin Urine Random 4.8 mg/dL (0-1.6)
[2022-11-01 11:04] LABS: Free T4, Direct Thyroxine 1.17 ng/dL (0.78-2.19)
[2022-11-01 11:18] LABS: Thyroid Stimulating Hormone 2.68 uIU/mL (0.47-4.68)
== END ==
PROVIDERS: Family Provider Internal Medicine; PCP Internal Medicine; Referring Provider Student in an Organized Health Care Education/Training Program; Visit Provider Student in an Organized Health Care Education/Training Program
DX: E11.42 Type 2 diabetes mellitus with diabetic polyneuropathy (principal); Z79.4 Long term (current) use of insulin; E11.9 Type 2 diabetes mellitus without complications; E78.2 Mixed hyperlipidemia; I10 Essential (primary) hypertension
CPT/HCPCS: 36415; 80053; 80061; 80069; 82043; 82570; 83036; 84439; 84443

== ENCOUNTER 2023-01-01 12:28 | Outpatient (CLI) | payer OTHER, SELFPAY ==
[2022-10-17 16:10] VITALS: BMI 33.0
[2023-01-01] VITALS (8 sets, daily range): BP systolic 124–177; BP diastolic 60–83; PULSE 60–72; RESP 16–22; TEMP 36.7; O2SAT 94–97
--- NOTE | 2023-01-01 12:29 | DI.RAD.S_ITS ---
PROCEDURE: PAIN L/S TRANSFORAMINAL INJECT INDICATIONS: SPONDYLOSIS COMPARISON: None. FINDINGS: Fluoroscopic spot filming was performed to verify placement of spinal needles at the left L4-L5 neural foramen level(s), as labeled on the films. Appropriate location(s) of the needle tip(s) was confirmed by injection of iodinated contrast. IMPRESSION: Access needle at the left L4-L5 neural foramen for transforaminal epidural steroid injection. Dictated by: Elli Lo MD, PhD on 01/01/2023 at 14:45 Approved by: Elli Lo MD, PhD on 01/01/2023 at 14:46
[2023-01-01] MEDS: MIDAZOLAM 2 MG/2 ML VIAL IV (13:39)
[2023-01-01] MEDS: BETAMETHASONE 30 MG/5 ML MDV 6 MG INJ (13:41)
[2023-01-01] MEDS: DEXAMETHASONE 10 MG/ML VIAL INJ (13:42)
[2023-01-01] MEDS: BUPIVACAINE 0.25% (PF) VIAL 2 ML INJ (13:42)
[2023-01-01] MEDS: iopamidoL 15 ML VIAL 3 ML INJ (13:42)
--- NOTE | 2023-01-01 14:09 | P.PCN_ITS ---
Date/Time/Diagnoses Date of procedure: 01/01/23 Time of procedure: 14:09 Pre-procedure diagnosis: 1. FORAMINAL STENOSIS WITH LE SYMPTOMS Post-procedure diagnosis: same Procedure Notes Procedure: 1. FLUOROSCOPICALLY GUIDED CONTRAST CONTROLLED TRANSFORAMINAL EPIDURAL STEROID INJECTION - LEFT L4/5 Indications: Adalberto is referred by Dr. Hardy for treatment of Foraminal Stenosis with Left LE Symptoms Physician: Robson Odell Total Fluoroscopy time (seconds): 10 Total sedation minutes: 10 Complications: none Procedure in detail & Post-procedure care: FINDINGS Foraminal Nerve Root Compression secondary to disc disease and facet hypertrophy DESCRIPTION OF PROCEDURE Following review of allergy and review of potential side effects and complications, including, but not necessarily limited to, infection, allergic reaction, local tissue breakdown, stroke, temporary or permanent nerve injury, paralysis, and possible , the patient indicated that the patient understood and agreed to proceed. An informed consent document was signed by the patient, witnessed by a nurse, and placed in the patient's chart. Additionally, other treatment options including medications, modalities, and physical therapy were reviewed with the patient. After review of previous anaesthesic history and IV conscious sedation the patient was deemed safe to proceed with today?s procedure with IV conscious sedation as ASA class II designation. Safety time-out was performed to confirm patient ID, procedure to be performed and site of procedure. IV sedation was accomplished with a combination of 2mg of Versed administered by the RN after DO order, titrated to patient comfort during the course of the procedure while the patient remained responsive to all verbal commands In the prone position following sterile prep and drape of the lumbar region, the left L4/5 posterior neuroforamen was identified fluoroscopically. The skin was anesthetized via a 25-gauge 1.5-inch needle with 1% lidocaine solution. At this point, a 25-gauge 3.5-inch spinal needle was atraumatically introduced and advanced under fluoroscopic guidance through the posterior left L4/5 neuroforamen to approximately the anterior aspect of the canal. Depth was confirmed on lateral view. Following negative aspiration, injection of approximately 1.5 cc of Isovue 200 under live fluoroscopy in the AP view confirmed excellent flow along the nerve root, into the epidural space without vascular or intrathecal uptake observed Radiological data, including multiple fluoroscopic views of the lumbosacral spine, reveal a spinal needle at the left L4/5 posterior neuroforamen. Subsequent views show flow of contrast material flowing superiorly and inferiorly along the nerve root confirming epidural flow. Subsequently, a test dose of 1.5 cc of 1% lidocaine solution was administered and patient was observed for two minutes for signs or symptoms of complications, including abdominal pain, shortness of breath, bilateral upper or lower extremity weakness, nausea and vomiting, prior to steroid injection. At this point, a total of 2cc or 10mg of dexamethasone and 6mg of betamethasone was injected without incident. The procedure tolerated the procedure well without signs or symptoms of complications prior to transfer to the recovery area continued monitoring without incident. The patient was then transferred to the recovery area where they were observed for an appropriate time after the injection. The patient reported a VAS score of 7 prior to the procedure and a post- procedure VAS of 0. POST OP INSTRUCTIONS The patient was provided a Pain Log to continue to record their response to the target-specific procedure prior to follow-up visit with their referring physician. Additionally, specific post-injection care instructions and a contact number to our office were provided if concerns arise regarding possible complications associated with the procedure are suspected.
== END 2023-01-01 14:17 | disposition home or self-care (01) ==
PROVIDERS: Family Provider Internal Medicine; PCP Internal Medicine; Referring Provider Physical Medicine & Rehabilitation; Visit Provider Physical Medicine & Rehabilitation
DX: M48.061 Spinal stenosis, lumbar region without neurogenic claudication (principal); M51.16 Intervertebral disc disorders with radiculopathy, lumbar region; M47.26 Other spondylosis with radiculopathy, lumbar region
CPT/HCPCS: 64483; 99152; J0702; J1100; J2250; J3490

== ENCOUNTER 2023-04-02 12:39 | Outpatient (CLI) | payer OTHER, SELFPAY ==
[2022-10-17 16:10] VITALS: BMI 33.0
[2023-04-02] VITALS (8 sets, daily range): BP systolic 125–200; BP diastolic 63–89; PULSE 46–84; RESP 12–23; TEMP 36.6; O2SAT 94–95
--- NOTE | 2023-04-02 14:00 | DI.RAD.S_ITS ---
PROCEDURE: PAIN SI JOINT INJECTION GRACE INDICATIONS: SACRAL DYSFUNCTION COMPARISON: None. FINDINGS: Fluoroscopic spot filming was performed to verify placement of spinal needles at the bilateral sacroiliac joints, as labeled on the films. Appropriate location(s) of the needle tip(s) was confirmed by injection of iodinated contrast. IMPRESSION: Fluoro guidance was provided intraoperatively for bilateral sacroiliac joint injection performed by ordering physician. Dictated by: Benja Nogueira M.D. on 04/02/2023 at 16:56 Approved by: Benja Nogueira M.D. on 04/02/2023 at 16:56
[2023-04-02] MEDS: MIDAZOLAM 2 MG/2 ML VIAL IV (14:27)
[2023-04-02] MEDS: iopamidoL 15 ML VIAL 3 ML INJ (14:31)
[2023-04-02] MEDS: BETAMETHASONE 30 MG/5 ML MDV 12 MG INJ (14:31)
[2023-04-02] MEDS: BUPIVACAINE 0.5% (PF) 10 ML VIAL 2 ML INJ (14:31)
--- NOTE | 2023-04-02 14:47 | PM.PROC.IR.1 ---
Date/Time/Diagnoses Date of procedure: 04/02/23 Time of procedure: 14:47 Pre-procedure diagnosis: Sacroiliac joint pain/DJD Post-procedure diagnosis: same Procedure Notes Procedure: Fluoroscopic guided contrast controlled bilateral sacroiliac joint injection Indications: Adalberto is referred by Dr. Hardy for treatment of bilateral sacroiliac joint DJD Physician: Robson Odell Total Fluoroscopy time (seconds): 18 Total sedation minutes: 14 Complications: none Procedure in detail & Post-procedure care: Description of procedure Fluoroscopic guided, contrast controlled bilateral sacroiliac joint injection Following review of allergies and review of potential side effects and complications, including, but not necessarily limited to, infection, allergic reaction, local tissue breakdown, temporary as well as permanent nerve injury, paralysis, stroke and possible , the patient indicated that they understood and agreed to proceed. An informed consent was signed by the patient, witnessed by a nurse, and placed in the patient's chart. Additionally, other treatment options including modalities, medications, and physical therapy were reviewed with the patient. After review of previous anaesthesic history and IV conscious sedation the patient was deemed safe to proceed with today?s procedure with IV conscious sedation as ASA class II designation. Safety time-out was performed to confirm patient ID, procedure to be performed and site of procedure. IV sedation was accomplished with a combination of 2mg Versed were administered by the RN after DO order, titrated to patient comfort during the course of the procedure while the patient remained responsive to all verbal commands In the prone position following sterile prep and drape of the pelvic region, the hyper lucency on in the inferior aspect of the sacroiliac joint was identified fluoroscopically the skin was anesthetized be a 25 gauge 1.5 inch needle with approximately 2cc of 1% lidocaine solution. At this point, a 22 gauge 3 in spinal needle was atraumatically introduced and advanced under fluoroscopic guidance into the inferior aspect of the right sacroiliac joint. Following negative aspiration, approximately 0.3cc of Isovue-300 was injected confirming intra-articular placement without vascular uptake. Radiographic data, including multiple fluoroscopic views of the pelvis, reveals a spinal needle in the sacroiliac joint hyper lucent zone. Subsequent view show flow contrast tear superiorly and inferiorly within the joint capsule without vascular intrathecal uptake. At this point a total of 1cc of 0.5% Marcaine was combined with 1cc of 6mg of betamethasone was injected without incident. Attention was then refocused the left sacroiliac joint where the procedure was replicated. The procedure tolerated the procedure well without signs or symptoms of complications prior to transfer to the recovery area continued monitoring without incident. The patient was then transferred to the recovery area with a bur observed for an appropriate time after the injection. The patient reverted a vas score of 7 prior to the procedure and post-procedure vas of 1. Postop instructions The patient was provided with a pain like to continue to record the patient's response to the target specific procedure prior to the patient's follow-up visit with the referring physician. Additionally, specific post injection care instructions and a contact number to our office were provided if concerns arise regarding the possible complications associated with procedure are suspected.
== END 2023-04-02 15:00 | disposition home or self-care (01) ==
PROVIDERS: Family Provider Internal Medicine; PCP Internal Medicine; Referring Provider Physical Medicine & Rehabilitation; Visit Provider Physical Medicine & Rehabilitation
DX: M53.3 Sacrococcygeal disorders, not elsewhere classified (principal); M46.1 Sacroiliitis, not elsewhere classified
CPT/HCPCS: 27096; 77002; 99152; J0702; J2250

== ENCOUNTER 2023-07-30 08:14 | Emergency (ER) | payer OTHER, SELFPAY ==
[2022-10-17 16:10] VITALS: BMI 33.0
[2023-07-30] VITALS (18 sets, daily range): BP systolic 137–186; BP diastolic 66–83; PULSE 58–89; RESP 14–27; TEMP 36.5; O2SAT 91–97
--- NOTE | 2023-07-30 08:35 | ED.GENADULT ---
HPI - General Adult General Chief complaint: Back Pain/Injury Stated complaint: Lower back pain, bowel incontinence Time Seen by Provider: 07/30/23 08:23 History of Present Illness HPI narrative: 78-year-old male with chronic low back pain, prior epidural spinal injections, last injections 1 month ago, another set 2 months ago, after which he recalls having diarrhea, which resolved, now with 5 episodes of loose stools since last night, no black or red color, no mucoid appearance, no fevers or chills, associated with the increase in his low back pain. No injury or trauma new activities. No numbness or weakness to his legs. No incontinence of urine or stool. He has not been on any recent antibiotics. He has not traveled or been camping. He has no recent contacts to persons with similar symptoms of diarrhea. No history of Crohn's disease or chronic inflammatory bowel problems. Denies shortness of breath, cough, dizziness, weakness. He would like pain medication for his low back pain. Related Data Home Medications Medication Instructions Recorded Confirmed insulin glargine 100 unit/mL (3 18 unit SQ HS ##0 12/08/15 07/04/23 mL) subcutaneous pen (Lantus Solostar U-100 Insulin) empagliflozin 25 mg tablet 25 mg PO DAILY 04/30/22 07/04/23 (Jardiance) metoprolol succinate 50 mg 50 mg PO BID 04/30/22 07/04/23 tablet,extended release 24 hr Previous Rx's Medication Instructions Recorded azelastine 137 mcg (0.1 %) nasal 1 spray intranasal BID #30 mL 08/25/18 spray aerosol polyethylene glycol 3350 17 17 gram PO DAILY #510 grams 04/06/19 gram/dose oral powder (Miralax) clotrimazole 1 % topical cream 1 applictn topical BID 2 weeks #12 09/22/ grams mupirocin 2 % topical ointment 1 applic topical BID #30 grams 04/01/20 desonide 0.05 % topical cream 1 applic topical QD-BID PRN rash 10/27/21 #60 grams potassium chloride 10 mEq 10 meq PO DAILY #90 caps 11/29/21 capsule,extended release ketoconazole 2 % shampoo 1 applic topical 2XW #120 mL 04/30/22 omeprazole 40 mg capsule,delayed 40 mg PO BID #180 caps 07/16/22 release rosuvastatin 10 mg tablet See Rx Instructions .Route 08/09/22 .COMPLEX #90 tabs albuterol sulfate 90 mcg/actuation 2 puff inhalation Q4H PRN 09/03/22 aerosol inhaler shortness of breath or wheezing #18 grams amlodipine 10 mg tablet (Norvasc) 10 mg PO Q DAY #90 tabs 11/05/22 nystatin 100,000 unit/gram topical 1 applic topical QID #60 grams 12/18/22 powder triamterene 37.5 1 tab PO QDAY #90 tabs 04/16/23 mg-hydrochlorothiazide 25 mg tablet lisinopril 40 mg tablet 40 mg PO DAILY #90 tabs 05/13/23 pen needle, diabetic 31 gauge x #100 ea 05/14/2305/10 (Unifine Pentips) diazepam 5 mg tablet (Valium) 5 mg PO BID #60 tabs 06/11/23 clobetasol 0.05 % scalp solution 1 applic topical DAILY PRN itching 06/14/23 #50 mL hydrocodone 5 mg-acetaminophen 325 1 - 2 tab PO Q4H PRN pain #240 tabs 07/04/23 mg tablet hydrocodone 5 mg-acetaminophen 325 1 - 2 tab PO Q4H PRN pain #240 tabs 07/04/23 mg tablet hydrocodone 5 mg-acetaminophen 325 1 - 2 tab PO Q4HP PRN pain #240 07/04/23 mg tablet tabs methocarbamol 500 mg tablet 500 mg PO TID rhomboid muscle 07/30/23 strain 7 days #21 tabs Allergies Allergy/AdvReac Type Severity Reaction Status Date / Time metronidazole Allergy Severe NEUROPATHY Verified 07/04/23 13:51 IN THE FEET naproxen Allergy Severe TONGUE Verified 07/04/23 13:51 SWELLING, ITCHY Sulfa (Sulfonamide Allergy Mild UNSURE Verified 07/04/23 13:51 Antibiotics) glipizide [GLIPIZIDE] AdvReac Intermediate sick all Verified 07/04/23 13:51 over metformin AdvReac Intermediate GASTRIC Verified 07/04/23 13:51 UNEASE, LOOSE STOOL oxycodone [From Percocet] AdvReac Mild NAUSEA Verified 07/04/23 13:51 Patient History Medical History Sacral dysfunction Lumbar radiculopathy Lumbar compression fracture Idiopathic cardiomyopathy Lumbar spinal stenosis Uncomplicated opioid dependence Hay fever Foot pain History of Clostridium difficile colitis (~2011) Hypertension (~1993) Hyperlipidemia History of malignant neoplasm of prostate (06/16/15) Uncontrolled type 2 diabetes mellitus (03/30/14) Anxiety (04/30/13) Idiopathic peripheral neuropathy (03/12/13) Controlled type 2 diabetes mellitus without complication (03/21/12) Surgical History Ankle pain (~1996) Status post radical cystoprostatectomy (~1994) Family History Father Type II diabetes mellitus Heart disease Grandfather Heart disease Mother Lung cancer Grandfather Prostate cancer Social History marital status: unmarried,single number of children: 0 household members: none lives independently: Yes caregiver/support person: No housing: house pets and animals: Yes education level: college occupational status: other current occupational exposures/hazards: No 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 HEAD: Atraumatic. Normocephalic. EYES: Pupils equal round and reactive. Extraocular motions intact. No scleral icterus. No injection or drainage. ENT: Nose without bleeding, purulent drainage. Throat without erythema, tonsillar hypertrophy or exudate. Airway patent. NECK: Trachea midline. Non tender CARDIOVASCULAR: Regular rate and rhythm without murmurs, gallops, or rubs. RESPIRATORY: Clear to auscultation. Breath sounds equal bilaterally. No wheezes, rales, or rhonchi. GASTROINTESTINAL: Abdomen soft, non-tender, nondistended. EXTREMITIES: No edema or joint tenderness. BACK: No midline lumbar or thoracic tenderness, mild left lower paraspinous tenderness, no skin changes, no rash, no erythema warmth. No flank tenderness. NEURO: AOx3. No gross motor deficits. SKIN: No rash or erythema of visible areas Initial Vital Signs Initial Vital Signs: Vital Signs Pulse Oximetry 96 07/30/23 08:21 Course Orders Ordered: Discontinued Medications Diazepam (Diazepam 10 Mg/2 Ml Syringe) 5 mg IV NOW ONE Stop: 07/30/23 10:42 Last Admin: 07/30/23 14:35 Dose: Not Given Documented By: SAAD Hydromorphone HCl (Hydromorphone 0.5 Mg Inj) 0.5 mg IV NOW ONE Stop: 07/30/23 10:36 Last Admin: 07/30/23 10:44 Dose: 0.5 mg Documented By: TRINA Sodium Chloride (Normal Saline 0.9%) 1,000 mls @ 1,000 mls/hr IV BOLUS ONE Stop: 07/30/23 09:52 Last Infusion: 07/30/23 10:13 Dose: Infused Documented By: Admin: 07/30/23 09:07 Dose: 1,000 mls/hr Documented By: MAURICIO Morphine Sulfate (Morphine 4 Mg/Ml Inj) 4 mg IV NOW ONE Stop: 07/30/23 08:55 Last Admin: 07/30/23 09:07 Dose: 4 mg Documented By: MAURICIO Ondansetron HCl (Ondansetron 4 Mg/2 Ml Inj) 4 mg IV NOW ONE Stop: 07/30/23 08:56 Last Admin: 07/30/23 09:07 Dose: 4 mg Documented By: MAURICIO Vital Signs Vital signs: Vital Signs - 8 hr 07/30/23 11:30 07/30/23 11:31 07/30/23 11:31 Pulse Rate 67 67 Respiratory Rate 26 H 27 H Blood Pressure 170/72 H Pulse Oximetry 94 94 Oxygen Delivery Method 07/30/23 12:00 07/30/23 12:01 07/30/23 12:01 Pulse Rate 63 61 Respiratory Rate 16 17 Blood Pressure 142/66 H Pulse Oximetry 97 96 Oxygen Delivery Method 07/30/23 15:20 Pulse Rate 72 Respiratory Rate 17 Blood Pressure 186/83 H Pulse Oximetry 94 Oxygen Delivery Method Room Air Medical Decision Making Lab Data 07/30/23 09:00 07/30/23 09:00 Labs: Lab Results 07/30/23 07/30/23 Range/Units 09:00 11:40 WBC 10.7 (4.5-11.0) X10^3/uL RBC 5.75 (4.5-5.9) X10^6/uL Hgb 16.7 (13.5-17.5) g/dL Hct 49.6 (41-53) % MCV 86.2 (80-100) fL MCH 29.1 (26-34) PG MCHC 33.8 (30-36) % RDW 14.2 (11.6-14.8) % Plt Count 242 (150-400) X10^3/uL Neut % (Auto) 60.3 (50-75) % Lymph % (Auto) 31.8 (25-40) % [place] % (Auto) 5.8 (3-14) % Eos % (Auto) 1.7 L (2-4) % Baso % (Auto) 0.4 (0-2) % Neut # (Auto) 6500 (6714-1867) /uL Lymph # (Auto) 3400 (6975-2231) /uL [place] # (Auto) 600 (0-900) /uL Eos # (Auto) 200 (0-450) /uL Baso # (Auto) 0 (0-100) /uL Sodium 133 L (137-145) mmol/L Potassium 3.4 (3.4-5.1) mmol/L Chloride 97 L (98-107) mmol/L Carbon Dioxide 28 (22-32) mmol/L BUN 12 (9-20) mg/dL Creatinine 0.70 (0.66-1.25) mg/dL Estimated GFR > 60 (>60) mL/min BUN/Creatinine Ratio 17.1 (6-22) Glucose 235 H (80-110) mg/dL Calcium 9.0 (8.4-10.2) mg/dL Total Bilirubin 0.9 (0.2-1.3) mg/dL AST 43 (17-59) IU/L ALT 20 (<50) IU/L Alkaline Phosphatase 64 (38-126) U/L Total Protein 6.8 (6.3-8.2) g/dL Albumin 4.6 (3.5-5.0) g/dL Globulin 2.2 (1.7-4.1) g/dL Albumin/Globulin Ratio 2.1 (1.0-2.8) Lipase 21 L (23-300) U/L C. difficile Tox (PCR) Cancelled Urine Dip Bedside Urine Glucose 500 mg/dl Bedside Urine Bilirubin - Negative Bedside Urine Ketone - Negative Urine Specific [place] 1.010 Bedside Urine Occult Blood - Negative Bedside Urine pH 6.0 Bedside Urine Protein - Negative Bedside Urine Urobilinogen - Negative Bedside Urine Nitrite - Negative Bedside Urine Leukocytes - Negative Esterase Point of care testing: Urine Dip Bedside Urine Glucose 500 mg/dl Bedside Urine Bilirubin - Negative Bedside Urine Ketone - Negative Urine Specific [place] 1.010 Bedside Urine Occult Blood - Negative Bedside Urine pH 6.0 Bedside Urine Protein - Negative Bedside Urine Urobilinogen - Negative Bedside Urine Nitrite - Negative Bedside Urine Leukocytes - Negative Esterase Imaging Data CT scan - abdomen/pelvis: Radiologist's Impression: [address] [address] [address] Scan Report Signed Patient: Adalberto Stevens MR#: [id number] : 1945 Acct:[id number] Age/Sex: 78 / M Date of Service: 07/30/23 Loc: ED Accession Number: [id number] Procedure: CT abdomen pelvis w con Ordering Provider: Adalberto Sue MD PROCEDURE: CT ABDOMEN PELVIS W CON INDICATIONS: back pain, diarrhea, abd cramping TECHNIQUE: After the administration of intravenous contrast, axial sections acquired from the lung bases to the pubic symphysis. Coronal and sagittal reformats were performed. For radiation dose reduction, the following was used: automated exposure control, adjustment of mA and/or kV according to patient size. COMPARISON: [facility], CT, CT ABDOMEN PELVIS W CON, 04/03/2019, 3:42. FINDINGS: Image quality: Diagnostic. Lower Chest: No significant findings. ABDOMEN: Liver: No solid mass. Gallbladder: No radiopaque gallstones or wall thickening. Biliary ducts: No biliary dilation. Pancreas: No ductal dilation. Spleen: Size is within normal limits. Adrenal Glands: No adrenal nodules. Kidneys and Ureters: No hydronephrosis. No solid mass. Simple bilateral renal cysts. No complex renal cystic lesion which requires follow up. Stomach and Bowel: Normal colonic caliber, without significant wall thickening. The appendix is not definitely visualized, however no inflammatory changes or free fluid noted adjacent to the cecum. Peritoneum: No abnormal intraperitoneal fluid. No free air. Ventral Wall: No significant ventral hernia. Abdominal Nodes: No retroperitoneal or mesenteric adenopathy by size criteria. Vessels: Aorta and inferior vena cava are normal in size. PELVIS: Pelvic Organs: Unremarkable. Bladder: No bladder wall thickening, accounting for underdistention. Stable prostatectomy postsurgical changes. Pelvic Nodes: No enlarged lymph nodes. Miscellaneous: Small fat containing left inguinal hernia. Stable anterior right thigh venous varices. Bones: No aggressive osseous abnormality. Spine degenerative disc disease and facet arthropathy. IMPRESSION: No acute disease process. Dictated by: Elli Lo MD, PhD on 07/30/2023 at 10:17 Approved by: Elli Lo MD, PhD on 07/30/2023 at 10:22 ECG Data Attestation: I personally reviewed and interpreted this ECG as follows: Interpretation: Normal sinus rhythm, with occasional PVC noted. No obvious ST segment elevation changes. DC interval normal, QRS 112, QTC 490. [facility] Narrative Medical decision making narrative: 78-year-old male with 5 episodes loose stools, some increased chronic low back pain, would like relief of his back pain, consider referred back pain to abdominal process, nonfocal neuro exam. Stool studies requested, including C diff toxin, if he produces a specimen while here. IV fluid bolus, IV morphine/Zofran. Labs including electrolytes pending. Serum studies unremarkable. CT abdomen pelvis showed no acute changes. IV fluid infusion running, looks more comfortable after morphine. Increased back pain again, no anterior abdominal discomfort, IV Valium, IV Dilaudid 1515, studies unremarkable, still no specimen received for enteric pathogen screening, no diarrhea while in ED, trial of ambulation, p.o. fluid challenge Patient feels better, would like to go home Critical Care Time Critical Care Time Critical Care Time: Yes Total Critical Care Time: 31 Attestation: The high probability of a clinically significant, sudden or life threatening deterioration of the [gastrointestinal] system(s) required my full and direct attention, intervention and personal management. The aggregate critical care time was [31] minutes. This time is in addition to time spent performing reported procedures but includes the following: [x] Data Review and interpretation [x] Patient assessment and monitoring of vital signs [x] Documentation [x] Medication orders and management Discharge Plan Departure Patient Disposition: Home Clinical Impression: Low back pain, Diarrhea Instructions: DI for Low Back Pain Activity Restrictions/Additional Instructions: Recent episodes of diarrhea, and increased chronic back pain, pain medication muscle relaxants given, and true symptoms. Stool studies were requested but no specimen ever obtained for lab testing. CT abdomen and pelvis imaging showed no acute changes. Continue taking your chronic pain medications, follow up with your pain specialist as planned, possible future repeat spinal injections. Consider Robaxin muscle relaxant if not already taking some other form of muscle relaxant. Return to this/nearest emergency department for any change worsening symptoms or any concerns prior Prescriptions: New methocarbamol 500 mg tablet 500 mg PO TID 7 Days Qty: 21 0RF No Action Lantus Solostar U-100 Insulin 100 UNIT/1 ML insulin pen 18 unit SQ HS Qty: 0 Rx Instructions: states takes 18-20 units at HS mupirocin 2 % ointment 1 applic topical BID Qty: 30 0RF omeprazole 40 mg capsule,delayed release(DR/EC) 40 mg PO BID Qty: 180 2RF rosuvastatin 10 mg tablet See Rx Instructions .ROUTE .COMPLEX Qty: 90 3RF Dose Instruction: TAKE ONE TABLET BY MOUTH ONCE DAILY Patient Comments: States takes 5x a week due to occasional stomach upset Rx Instructions: TAKE ONE TABLET BY MOUTH ONCE DAILY. albuterol sulfate 90 mcg/actuation HFA aerosol inhaler 2 puff INHALATION Q4H PRN (Reason: shortness of breath or wheezing) Qty: 18 6RF Patient Comments: takes for allergies, rarely amlodipine [Norvasc] 10 mg tablet 10 mg PO Q DAY Qty: 90 3RF nystatin 100,000 unit/gram powder 1 applic topical QID Qty: 60 4RF triamterene-hydrochlorothiazid 37.5-25 mg tablet 1 tab PO QDAY Qty: 90 2RF lisinopril 40 mg tablet 40 mg PO DAILY Qty: 90 3RF (DME) pen needle, diabetic [Unifine Pentips] 31 gauge x 3/16 needle See Rx Instructions .ROUTE .MEDSUPPLY Qty: 100 3RF Rx Instructions: As directed diazepam [Valium] 5 mg tablet 5 mg PO BID Qty: 60 2RF Patient Comments: usually takes once to twice daily as needed clobetasol 0.05 % solution 1 applic topical DAILY PRN (Reason: itching) Qty: 50 3RF Jardiance 25 mg tablet 25 mg PO DAILY metoprolol succinate 50 mg tablet extended release 24 hr 50 mg PO BID ketoconazole 2 % shampoo 1 applic TOP 2XW Qty: 120 3RF azelastine 137 mcg (0.1 %) aerosol,spray 1 spray NASAL BID Qty: 30 4RF Patient Comments: allergies or bronchial issues per patient Rx Instructions: administer into each nostril clotrimazole 1 % cream 1 applictn TOP BID 14 Days Qty: 12 8RF desonide 0.05 % cream 1 applic topical QD-BID PRN (Reason: rash) Qty: 60 2RF hydrocodone-acetaminophen 5-325 mg tablet 1 - 2 tab PO Q4HP MDD 8 tabs PRN (Reason: pain) Qty: 240 0RF Rx Instructions: ok to fill on 07/05/23, next will be due August 15, 2023 hydrocodone-acetaminophen 5-325 mg tablet 1 - 2 tab PO Q4H MDD 8 tabs PRN (Reason: pain) Qty: 240 0RF hydrocodone-acetaminophen 5-325 mg tablet 1 - 2 tab PO Q4H MDD 8 tabs PRN (Reason: pain) Qty: 240 0RF potassium chloride 10 mEq capsule, extended release 10 meq PO DAILY Qty: 90 1RF polyethylene glycol 3350 [Miralax] 17 gram/dose powder 17 gram PO DAILY Qty: 510 5RF Referrals: Christopher Hardy MD [Primary Care Provider] - Stand Alone Forms: Patient Portal/API
[2023-07-30] MEDS: ONDANSETRON 4 MG/2 ML INJ IV (09:07)
[2023-07-30] MEDS: MORPHINE 4 MG/ML INJ IV (09:07)
[2023-07-30] MEDS: SODIUM CHLORIDE 0.9% 1,000 ML 1000 ML IV (09:07)
[2023-07-30 09:15] LABS: Add Manual Diff / Slide Review NO; Basophils Absolute Auto 0 /uL (0-100); Basophils Percent Auto 0.4 % (0-2); Eosinophils Absolute Auto 200 /uL (0-450); Eosinophils Percent Auto 1.7 % (2-4); Hematocrit 49.6 % (41-53); Hemoglobin 16.7 g/dL (13.5-17.5); Lymphocytes Absolute Auto 3400 /uL (1100-4500); Lymphocytes Percent Auto 31.8 % (25-40); Mean Corpuscular HGB Conc 33.8 % (30-36); Mean Corpuscular Hemoglobin 29.1 PG (26-34); Mean Corpuscular Volume 86.2 fL (80-100); Monocytes Absolute Auto 600 /uL (0-900); Monocytes Percent Auto 5.8 % (3-14); Neutrophils Absolute Auto 6500 /uL (1500-7000); Neutrophils Percent Auto 60.3 % (50-75); Platelet Count 242 X10^3/uL (150-400); Red Blood Cell Count 5.75 X10^6/uL (4.5-5.9); Red Cell Distribution Width 14.2 % (11.6-14.8); White Blood Cell Count 10.7 X10^3/uL (4.5-11.0)
[2023-07-30 09:32] LABS: Alanine Aminotransferase 20 IU/L (<50); Albumin 4.6 g/dL (3.5-5.0); Albumin Globulin Ratio 2.1 (1.0-2.8); Alkaline Phosphatase 64 U/L (38-126); Aspartate Aminotransferase 43 IU/L (17-59); BUN Creatinine Ratio 17.1 (6-22); Bilirubin Total 0.9 mg/dL (0.2-1.3); Blood Urea Nitrogen 12 mg/dL (9-20); Carbon Dioxide 28 mmol/L (22-32); Chloride 97 mmol/L (98-107); Estimated Glomerular Filt Rate > 60 mL/min (>60); Globulin 2.2 g/dL (1.7-4.1); Glucose 235 mg/dL (80-110); HEMOLYSIS 40 (0-50); Lipase 21 U/L (23-300); Potassium 3.4 mmol/L (3.4-5.1); Sodium 133 mmol/L (137-145); Total Protein 6.8 g/dL (6.3-8.2)
--- NOTE | 2023-07-30 09:49 | DI.CT.S_ITS ---
PROCEDURE: CT ABDOMEN PELVIS W CON INDICATIONS: back pain, diarrhea, abd cramping TECHNIQUE: After the administration of intravenous contrast, axial sections acquired from the lung bases to the pubic symphysis. Coronal and sagittal reformats were performed. For radiation dose reduction, the following was used: automated exposure control, adjustment of mA and/or kV according to patient size. COMPARISON: [facility], CT, CT ABDOMEN PELVIS W CON, 04/03/2019, 3:42. FINDINGS: Image quality: Diagnostic. Lower Chest: No significant findings. ABDOMEN: Liver: No solid mass. Gallbladder: No radiopaque gallstones or wall thickening. Biliary ducts: No biliary dilation. Pancreas: No ductal dilation. Spleen: Size is within normal limits. Adrenal Glands: No adrenal nodules. Kidneys and Ureters: No hydronephrosis. No solid mass. Simple bilateral renal cysts. No complex renal cystic lesion which requires follow up. Stomach and Bowel: Normal colonic caliber, without significant wall thickening. The appendix is not definitely visualized, however no inflammatory changes or free fluid noted adjacent to the cecum. Peritoneum: No abnormal intraperitoneal fluid. No free air. Ventral Wall: No significant ventral hernia. Abdominal Nodes: No retroperitoneal or mesenteric adenopathy by size criteria. Vessels: Aorta and inferior vena cava are normal in size. PELVIS: Pelvic Organs: Unremarkable. Bladder: No bladder wall thickening, accounting for underdistention. Stable prostatectomy postsurgical changes. Pelvic Nodes: No enlarged lymph nodes. Miscellaneous: Small fat containing left inguinal hernia. Stable anterior right thigh venous varices. Bones: No aggressive osseous abnormality. Spine degenerative disc disease and facet arthropathy. IMPRESSION: No acute disease process. Dictated by: Elli Lo MD, PhD on 07/30/2023 at 10:17 Approved by: Elli Lo MD, PhD on 07/30/2023 at 10:22
[2023-07-30] MEDS: HYDROMORPHONE 0.5 MG INJ IV (10:44)
== END 2023-07-30 15:24 | disposition home or self-care (01) ==
PROVIDERS: Emergency Provider Emergency Medicine; Family Provider Internal Medicine; PCP Internal Medicine
DX: M54.50 Low back pain, unspecified (principal); R19.7 Diarrhea, unspecified; Z79.899 Other long term (current) drug therapy
CPT/HCPCS: 36415; 74177; 80053; 81003; 83690; 85025; 93005; 96361; 96374; 96375; 99284; J1170; J2270; J2405; Q9967

== ENCOUNTER 2023-07-31 08:08 | Emergency (ER) | payer OTHER, SELFPAY ==
[2022-10-17 16:10] VITALS: BMI 33.0
--- NOTE | 2023-07-31 08:13 | ED.ABDPAIN ---
HPI - Abdominal Pain General Chief Complaint: Nausea/Vomiting/Diarrhea Stated Complaint: Returning; Low Back Pain, Diarrhea Time Seen by Provider: 07/31/23 08:11 History of Present Illness HPI narrative: 78-year-old male returns from ED visit here yesterday with similar complaint of loose stools and worsening right chronic low back pain. Yesterday he had laboratory studies that were unremarkable, stool studies were ordered but no specimen ever received after multiple hours, CT abdomen and pelvis imaging was negative at that time, symptomatic treatment given, patient improved and requested to go home. Since going home he has 2 loose stools early this morning, still without black or red color. No fevers or chills. He has worsening right lower back pain, prior spinal injections, last injections about a month ago. Last lumbar spine MRI imaging here in October 2022. He has no numbness or weakness to the right leg. He does not feel his loose stools are a form of incontinence, he has not been losing his stool in his pants, no urinary incontinence. Related Data Home Medications Medication Instructions Recorded Confirmed insulin glargine 100 unit/mL (3 18 unit SQ HS ##0 12/08/15 07/04/23 mL) subcutaneous pen (Lantus Solostar U-100 Insulin) empagliflozin 25 mg tablet 25 mg PO DAILY 04/30/22 07/04/23 (Jardiance) metoprolol succinate 50 mg 50 mg PO BID 04/30/22 07/04/23 tablet,extended release 24 hr Previous Rx's Medication Instructions Recorded azelastine 137 mcg (0.1 %) nasal 1 spray intranasal BID #30 mL 08/25/18 spray aerosol polyethylene glycol 3350 17 17 gram PO DAILY #510 grams 04/06/19 gram/dose oral powder (Miralax) clotrimazole 1 % topical cream 1 applictn topical BID 2 weeks #12 09/22/ grams mupirocin 2 % topical ointment 1 applic topical BID #30 grams 04/01/20 desonide 0.05 % topical cream 1 applic topical QD-BID PRN rash 10/27/21 #60 grams potassium chloride 10 mEq 10 meq PO DAILY #90 caps 11/29/21 capsule,extended release ketoconazole 2 % shampoo 1 applic topical 2XW #120 mL 04/30/22 omeprazole 40 mg capsule,delayed 40 mg PO BID #180 caps 07/16/22 release rosuvastatin 10 mg tablet See Rx Instructions .Route 08/09/22 .COMPLEX #90 tabs albuterol sulfate 90 mcg/actuation 2 puff inhalation Q4H PRN 09/03/22 aerosol inhaler shortness of breath or wheezing #18 grams amlodipine 10 mg tablet (Norvasc) 10 mg PO Q DAY #90 tabs 11/05/22 nystatin 100,000 unit/gram topical 1 applic topical QID #60 grams 12/18/22 powder triamterene 37.5 1 tab PO QDAY #90 tabs 04/16/23 mg-hydrochlorothiazide 25 mg tablet lisinopril 40 mg tablet 40 mg PO DAILY #90 tabs 05/13/23 pen needle, diabetic 31 gauge x #100 ea 05/14/2305/10 (Unifine Pentips) diazepam 5 mg tablet (Valium) 5 mg PO BID #60 tabs 06/11/23 clobetasol 0.05 % scalp solution 1 applic topical DAILY PRN itching 06/14/23 #50 mL hydrocodone 5 mg-acetaminophen 325 1 - 2 tab PO Q4H PRN pain #240 tabs 07/04/23 mg tablet hydrocodone 5 mg-acetaminophen 325 1 - 2 tab PO Q4H PRN pain #240 tabs 07/04/23 mg tablet hydrocodone 5 mg-acetaminophen 325 1 - 2 tab PO Q4HP PRN pain #240 07/04/23 mg tablet tabs methocarbamol 500 mg tablet 500 mg PO TID rhomboid muscle 07/30/23 strain 7 days #21 tabs Allergies Allergy/AdvReac Type Severity Reaction Status Date / Time metronidazole Allergy Severe NEUROPATHY Verified 07/31/23 08:26 IN THE FEET naproxen Allergy Severe TONGUE Verified 07/31/23 08:26 SWELLING, ITCHY Sulfa (Sulfonamide Allergy Mild UNSURE Verified 07/31/23 08:26 Antibiotics) glipizide [GLIPIZIDE] AdvReac Intermediate sick all Verified 07/31/23 08:26 over metformin AdvReac Intermediate GASTRIC Verified 07/31/23 08:26 UNEASE, LOOSE STOOL oxycodone [From Percocet] AdvReac Mild NAUSEA Verified 07/31/23 08:26 Review of Systems Review of Systems Narrative: as per HPI Patient History Medical History Sacral dysfunction Lumbar radiculopathy Lumbar compression fracture Idiopathic cardiomyopathy Lumbar spinal stenosis Uncomplicated opioid dependence Hay fever Foot pain History of Clostridium difficile colitis (~2011) Hypertension (~1993) Hyperlipidemia History of malignant neoplasm of prostate (06/16/15) Uncontrolled type 2 diabetes mellitus (03/30/14) Anxiety (04/30/13) Idiopathic peripheral neuropathy (03/12/13) Controlled type 2 diabetes mellitus without complication (03/21/12) Surgical History Ankle pain (~1996) Status post radical cystoprostatectomy (~1994) Family History Father Type II diabetes mellitus Heart disease Grandfather Heart disease Mother Lung cancer Grandfather Prostate cancer Social History marital status: unmarried,single number of children: 0 household members: none lives independently: Yes caregiver/support person: No housing: house pets and animals: Yes education level: college occupational status: other current occupational exposures/hazards: No 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 HEAD: Atraumatic. Normocephalic. EYES: Pupils equal round and reactive. Extraocular motions intact. No scleral icterus. No injection or drainage. ENT: Nose without bleeding, purulent drainage. Throat without erythema, tonsillar hypertrophy or exudate. Airway patent. NECK: Trachea midline. Non tender CARDIOVASCULAR: Regular rate and rhythm without murmurs, gallops, or rubs. RESPIRATORY: Clear to auscultation. Breath sounds equal bilaterally. No wheezes, rales, or rhonchi. GASTROINTESTINAL: Abdomen soft, non-tender, nondistended. EXTREMITIES: No edema or joint tenderness. BACK: Nontender without deformity or crepitance. No flank tenderness. Right low paraspinous mild tenderness on exam, no midline tenderness, no redness or skin changes. Straight leg raise right and left 45? without obvious discomfort NEURO: AOx3. Motor 5/5 lower extremities unremarkable. SKIN: No rash or erythema of visible areas Initial Vital Signs Initial Vital Signs: Vital Signs Pulse Oximetry 92 07/31/23 08:14 Course Orders Ordered: Discontinued Medications Dexamethasone (Dexamethasone 10 Mg/Ml Vial) 10 mg IV NOW ONE Stop: 07/31/23 08:32 Last Admin: 07/31/23 09:23 Dose: 10 mg Documented By: MAURICIO Diazepam (Diazepam 10 Mg/2 Ml Syringe) 5 mg IV NOW ONE Stop: 07/31/23 08:32 Last Admin: 07/31/23 09:26 Dose: 5 mg Documented By: MAURICIO Famotidine (Famotidine 20 Mg/2 Ml Vial) 20 mg IV NOW JOSE Last Admin: 07/31/23 09:23 Dose: 20 mg Documented By: MAURICIO Hydromorphone HCl (Hydromorphone 0.5 Mg Inj) 0.5 mg IV NOW ONE Stop: 07/31/23 10:59 Last Admin: 07/31/23 11:36 Dose: Not Given Documented By: DENEEN Morphine Sulfate (Morphine 4 Mg/Ml Inj) 4 mg IV NOW ONE Stop: 07/31/23 11:30 Last Admin: 07/31/23 11:37 Dose: 4 mg Documented By: DENEEN Vital Signs Vital signs: Vital Signs - 8 hr 07/31/23 08:20 Temperature 98.2 F Pulse Rate 85 Respiratory Rate 16 Blood Pressure 141/83 H Pulse Oximetry 99 Oxygen Delivery Method Room Air MDM - Abdominal Pain Lab Data 07/31/23 08:30 07/31/23 08:30 Labs: Lab Results 07/31/23 Range/Units 08:30 WBC 9.3 (4.5-11.0) X10^3/uL RBC 5.79 (4.5-5.9) X10^6/uL Hgb 16.8 (13.5-17.5) g/dL Hct 50.1 (41-53) % MCV 86.6 (80-100) fL MCH 29.0 (26-34) PG MCHC 33.5 (30-36) % RDW 14.6 (11.6-14.8) % Plt Count 239 (150-400) X10^3/uL Neut % (Auto) 51.8 (50-75) % Lymph % (Auto) 39.1 (25-40) % Banks % (Auto) 6.7 (3-14) % Eos % (Auto) 1.8 L (2-4) % Baso % (Auto) 0.6 (0-2) % Neut # (Auto) 4800 (3652-4869) /uL Lymph # (Auto) 3600 (7546-4045) /uL Banks # (Auto) 600 (0-900) /uL Eos # (Auto) 200 (0-450) /uL Baso # (Auto) 100 (0-100) /uL Sodium 134 L (137-145) mmol/L Potassium 3.8 (3.4-5.1) mmol/L Chloride 98 (98-107) mmol/L Carbon Dioxide 27 (22-32) mmol/L BUN 13 (9-20) mg/dL Creatinine 0.76 (0.66-1.25) mg/dL Estimated GFR > 60 (>60) mL/min BUN/Creatinine Ratio 17.1 (6-22) Glucose 233 H (80-110) mg/dL Calcium 9.1 (8.4-10.2) mg/dL Total Bilirubin 0.9 (0.2-1.3) mg/dL AST 32 (17-59) IU/L ALT 23 (<50) IU/L Alkaline Phosphatase 61 (38-126) U/L Total Protein 7.0 (6.3-8.2) g/dL Albumin 4.7 (3.5-5.0) g/dL Globulin 2.3 (1.7-4.1) g/dL Albumin/Globulin Ratio 2.0 (1.0-2.8) Lipase 29 (23-300) U/L Point of care testing: Urine Dip Bedside Urine Glucose 1000 mg/dl Bedside Urine Bilirubin - Negative Bedside Urine Ketone - Negative Urine Specific [place] 1.010 Bedside Urine Occult Blood - Negative Bedside Urine pH 6.0 Bedside Urine Protein - Negative Bedside Urine Urobilinogen - Negative Bedside Urine Nitrite - Negative Bedside Urine Leukocytes - Negative Esterase Imaging Data MRI Lumbar Spine: Radiologist's Impression: [address] [address] Magnetic Resonance Report Signed Patient: Adalberto Stevens MR#: [id number] : 1945 Acct:[id number] Age/Sex: 78 / M Date of Service: 07/31/23 Loc: ED Accession Number: [id number] Procedure: MR lumbar spine wo con Ordering Provider: Adalberto Sue MD PROCEDURE: MR LUMBAR SPINE WO CON INDICATIONS: persist/worse right Lsp pain, compare 10/2022 TECHNIQUE: Noncontrast sagittal T1 spin echo and T2 fast echo, sagittal STIR, and T2 fast spin echo through the lumbar spine. In cases with scoliosis, additional coronal T2 fast spin echo may be performed. COMPARISON: [facility], , MR LUMBAR SPINE WO CON, 10/30/2022, 15:25. FINDINGS: Image quality: Excellent. Alignment and Curvature: There is normal bony alignment. Bone Marrow: Marrow is of normal overall signal. No acute vertebral body compression fractures. Spinal Cord: Conus medullaris terminates at the L1 level. Visualized cord demonstrates normal signal and size. Paraspinous Soft Tissues: No paravertebral masses. T12-L1: Normal appearance. L1-L2: Mild facet hypertrophy. No canal stenosis or foraminal stenosis. L2-L3: Mild facet hypertrophy. No canal stenosis or foraminal stenosis. L3-L4: Stable findings. Disc bulge. Facet hypertrophy. Epidural lipomatosis. Epidural lipomatosis contributes to mild canal stenosis. Reference axial T2 image 22 of series 5. Mild bilateral foraminal narrowing. L4-L5: No significant change. Disc bulge. Prominent facet hypertrophy. Epidural lipomatosis. Resultant mild stable canal stenosis. Moderate bilateral foraminal narrowing, as before, with mild flattening deformity on the exiting bilateral L4 nerve roots. L5-S1: Chronic disc height loss and disc calcification. Minimal disc bulge. Facet hypertrophy. No canal stenosis. Mild left foraminal stenosis. IMPRESSION: 1. Stable findings. 2. Multilevel underlying facet arthropathy. 3. Epidural lipomatosis contributes to canal stenosis. 4. Canal stenosis is mild at L3-L4 and L4-L5. 5. Moderate bilateral foraminal narrowing at L4-L5. Dictated by: Clinton Juan M.D. on 07/31/2023 at 10:48 Approved by: Clinton Juan M.D. on 07/31/2023 at 10:54 [facility] Narrative Medical decision making narrative: 78-year-old male returns after evaluation here yesterday for low back pain and diarrhea and abdominal cramping, no stool specimen obtained during multiple hours of evaluation, responded to symptomatic medications, returns with 2 more loose stools, but predominance now of right low lumbar discomfort. No injuries recall. Some tenderness to right lower paraspinous musculature lumbar spine, no midline tenderness, straight leg raise 45? equal bilaterally. Patient seems quite uncomfortable with low back pain. We will send interval labs to look for any differences, stool studies if any specimen can be obtained. IV Valium, Decadron, Pepcid. History of naproxen associated allergy, will avoid Toradol. Prior lumbar spine MRI 10/2022, multilevel arthritic changes, history of prior and fairly recent epidural spinal injections about a month ago and also 2 or 3 months ago, we will obtain lumbar spine MRI today, patient willing, no obvious contraindications, order placed. MRI lumbar spine shows stable findings compared to study referenced 10/30/2022, see radiologist's report. Photocopy handed to the patient. Patient still having pain, requests further pain medications, IV Dilaudid not well tolerated, change to morphine Patient has Robaxin/methocarbamol prescription from yesterday's visit, has not started this yet, encouraged to take that muscle relaxant trial, follow up with his spine doctor Dr. Sanchez, and with his primary care provider Dr. Hardy for further management of chronic low back pain. He has a ride home. Discharged home, improved Critical Care Time Critical Care Time Critical Care Time: Yes Total Critical Care Time: 35 Attestation: The high probability of a clinically significant, sudden or life threatening deterioration of the [neurovascular, musculoskeletal, spinal] system(s) required my full and direct attention, intervention and personal management. The aggregate critical care time was [35] minutes. This time is in addition to time spent performing reported procedures but includes the following: [x] Data Review and interpretation [x] Patient assessment and monitoring of vital signs [x] Documentation [x] Medication orders and management Discharge Plan Departure Patient Disposition: Home Clinical Impression: Low back pain Activity Restrictions/Additional Instructions: Chronic low back pain, prior spinal injections, visit yesterday with back pain and diarrhea symptoms, no specimen produced during many hours of observation, CT abdomen and pelvis imaging yesterday showed no acute findings including the bone windows. Today with predominant back pain problems, repeat labs unremarkable. MRI lumbar spine was able to be performed, and showed no change when compared to previous available October 2022 study. Follow up with your spine Dr. Sanchez, also with your regular primary care provider Dr. Hardy. Continue taking your chronic pain medications for now. Consider taking the Robaxin/methocarbamol muscle relaxant medication prescribed yesterday, that you have not tried yet. Follow up with your regular provider for chronic pain management. Prescriptions: No Action Lantus Solostar U-100 Insulin 100 UNIT/1 ML insulin pen 18 unit SQ HS Qty: 0 Rx Instructions: states takes 18-20 units at HS mupirocin 2 % ointment 1 applic topical BID Qty: 30 0RF omeprazole 40 mg capsule,delayed release(DR/EC) 40 mg PO BID Qty: 180 2RF rosuvastatin 10 mg tablet See Rx Instructions .ROUTE .COMPLEX Qty: 90 3RF Dose Instruction: TAKE ONE TABLET BY MOUTH ONCE DAILY Patient Comments: States takes 5x a week due to occasional stomach upset Rx Instructions: TAKE ONE TABLET BY MOUTH ONCE DAILY. albuterol sulfate 90 mcg/actuation HFA aerosol inhaler 2 puff INHALATION Q4H PRN (Reason: shortness of breath or wheezing) Qty: 18 6RF Patient Comments: takes for allergies, rarely amlodipine [Norvasc] 10 mg tablet 10 mg PO Q DAY Qty: 90 3RF nystatin 100,000 unit/gram powder 1 applic topical QID Qty: 60 4RF triamterene-hydrochlorothiazid 37.5-25 mg tablet 1 tab PO QDAY Qty: 90 2RF lisinopril 40 mg tablet 40 mg PO DAILY Qty: 90 3RF (DME) pen needle, diabetic [Unifine Pentips] 31 gauge x 3/16 needle See Rx Instructions .ROUTE .MEDSUPPLY Qty: 100 3RF Rx Instructions: As directed diazepam [Valium] 5 mg tablet 5 mg PO BID Qty: 60 2RF Patient Comments: usually takes once to twice daily as needed clobetasol 0.05 % solution 1 applic topical DAILY PRN (Reason: itching) Qty: 50 3RF Jardiance 25 mg tablet 25 mg PO DAILY metoprolol succinate 50 mg tablet extended release 24 hr 50 mg PO BID ketoconazole 2 % shampoo 1 applic TOP 2XW Qty: 120 3RF azelastine 137 mcg (0.1 %) aerosol,spray 1 spray NASAL BID Qty: 30 4RF Patient Comments: allergies or bronchial issues per patient Rx Instructions: administer into each nostril clotrimazole 1 % cream 1 applictn TOP BID 14 Days Qty: 12 8RF desonide 0.05 % cream 1 applic topical QD-BID PRN (Reason: rash) Qty: 60 2RF hydrocodone-acetaminophen 5-325 mg tablet 1 - 2 tab PO Q4HP MDD 8 tabs PRN (Reason: pain) Qty: 240 0RF Rx Instructions: ok to fill on 07/05/23, next will be due August 15, 2023 hydrocodone-acetaminophen 5-325 mg tablet 1 - 2 tab PO Q4H MDD 8 tabs PRN (Reason: pain) Qty: 240 0RF hydrocodone-acetaminophen 5-325 mg tablet 1 - 2 tab PO Q4H MDD 8 tabs PRN (Reason: pain) Qty: 240 0RF potassium chloride 10 mEq capsule, extended release 10 meq PO DAILY Qty: 90 1RF polyethylene glycol 3350 [Miralax] 17 gram/dose powder 17 gram PO DAILY Qty: 510 5RF methocarbamol 500 mg tablet 500 mg PO TID 7 Days Qty: 21 0RF Referrals: Christopher Hardy MD [Primary Care Provider] - Stand Alone Forms: Patient Portal/API
[2023-07-31 08:14] VITALS: O2SAT 92
[2023-07-31 08:15] VITALS: BP 141/83; PULSE 70
[2023-07-31 08:20] VITALS: BP 141/83; PULSE 85; RESP 16; TEMP 36.8; O2SAT 99; BMI 32.0
--- NOTE | 2023-07-31 08:26 | DI.MRI.S_ITS ---
PROCEDURE: MR LUMBAR SPINE WO CON INDICATIONS: persist/worse right Lsp pain, compare 10/2022 TECHNIQUE: Noncontrast sagittal T1 spin echo and T2 fast echo, sagittal STIR, and T2 fast spin echo through the lumbar spine. In cases with scoliosis, additional coronal T2 fast spin echo may be performed. COMPARISON: [facility], , MR LUMBAR SPINE WO CON, 10/30/2022, 15:25. FINDINGS: Image quality: Excellent. Alignment and Curvature: There is normal bony alignment. Bone Marrow: Marrow is of normal overall signal. No acute vertebral body compression fractures. Spinal Cord: Conus medullaris terminates at the L1 level. Visualized cord demonstrates normal signal and size. Paraspinous Soft Tissues: No paravertebral masses. T12-L1: Normal appearance. L1-L2: Mild facet hypertrophy. No canal stenosis or foraminal stenosis. L2-L3: Mild facet hypertrophy. No canal stenosis or foraminal stenosis. L3-L4: Stable findings. Disc bulge. Facet hypertrophy. Epidural lipomatosis. Epidural lipomatosis contributes to mild canal stenosis. Reference axial T2 image 22 of series 5. Mild bilateral foraminal narrowing. L4-L5: No significant change. Disc bulge. Prominent facet hypertrophy. Epidural lipomatosis. Resultant mild stable canal stenosis. Moderate bilateral foraminal narrowing, as before, with mild flattening deformity on the exiting bilateral L4 nerve roots. L5-S1: Chronic disc height loss and disc calcification. Minimal disc bulge. Facet hypertrophy. No canal stenosis. Mild left foraminal stenosis. IMPRESSION: 1. Stable findings. 2. Multilevel underlying facet arthropathy. 3. Epidural lipomatosis contributes to canal stenosis. 4. Canal stenosis is mild at L3-L4 and L4-L5. 5. Moderate bilateral foraminal narrowing at L4-L5. Dictated by: Clinton Juan M.D. on 07/31/2023 at 10:48 Approved by: Clinton Juan M.D. on 07/31/2023 at 10:54
[2023-07-31 08:30] VITALS: PULSE 70; RESP 16; O2SAT 94
[2023-07-31 08:39] LABS: Add Manual Diff / Slide Review NO; Basophils Absolute Auto 100 /uL (0-100); Basophils Percent Auto 0.6 % (0-2); Eosinophils Absolute Auto 200 /uL (0-450); Eosinophils Percent Auto 1.8 % (2-4); Hematocrit 50.1 % (41-53); Hemoglobin 16.8 g/dL (13.5-17.5); Lymphocytes Absolute Auto 3600 /uL (1100-4500); Lymphocytes Percent Auto 39.1 % (25-40); Mean Corpuscular HGB Conc 33.5 % (30-36); Mean Corpuscular Volume 86.6 fL (80-100); Monocytes Absolute Auto 600 /uL (0-900); Monocytes Percent Auto 6.7 % (3-14); Neutrophils Absolute Auto 4800 /uL (1500-7000); Neutrophils Percent Auto 51.8 % (50-75); Platelet Count 239 X10^3/uL (150-400); Red Blood Cell Count 5.79 X10^6/uL (4.5-5.9); Red Cell Distribution Width 14.6 % (11.6-14.8); White Blood Cell Count 9.3 X10^3/uL (4.5-11.0)
[2023-07-31 08:51] LABS: Alanine Aminotransferase 23 IU/L (<50); Albumin 4.7 g/dL (3.5-5.0); Alkaline Phosphatase 61 U/L (38-126); Aspartate Aminotransferase 32 IU/L (17-59); BUN Creatinine Ratio 17.1 (6-22); Bilirubin Total 0.9 mg/dL (0.2-1.3); Blood Urea Nitrogen 13 mg/dL (9-20); Calcium 9.1 mg/dL (8.4-10.2); Carbon Dioxide 27 mmol/L (22-32); Chloride 98 mmol/L (98-107); Estimated Glomerular Filt Rate > 60 mL/min (>60); Globulin 2.3 g/dL (1.7-4.1); Glucose 233 mg/dL (80-110); HEMOLYSIS 26 (0-50); Lipase 29 U/L (23-300); Potassium 3.8 mmol/L (3.4-5.1); Sodium 134 mmol/L (137-145)
[2023-07-31] MEDS: DEXAMETHASONE 10 MG/ML VIAL IV (09:23)
[2023-07-31] MEDS: FAMOTIDINE 20 MG/2 ML VIAL IV (09:23)
[2023-07-31] MEDS: diazePAM 10 MG/2 ML SYRINGE 5 MG IV (09:26)
[2023-07-31] MEDS: MORPHINE 4 MG/ML INJ IV (11:37)
--- NOTE | 2023-07-31 12:06 | PC.NURSE ---
Pt c/o lower back pain and intermittent diarrhea.
[2023-07-31 12:09] VITALS: BP 150/70; PULSE 71; RESP 16; O2SAT 100
== END 2023-07-31 12:10 | disposition home or self-care (01) ==
PROVIDERS: Emergency Provider Emergency Medicine; Family Provider Internal Medicine; PCP Internal Medicine
DX: M54.50 Low back pain, unspecified (principal); R19.7 Diarrhea, unspecified; R10.9 Unspecified abdominal pain
CPT/HCPCS: 36415; 72148; 80053; 81003; 83690; 85025; 96374; 96375; 99284; J1100; J2270; J3360

== ENCOUNTER 2024-04-18 09:44 | Emergency (ER) | payer MEDICARE, OTHER, SELFPAY ==
[2022-10-17 16:10] VITALS: BMI 33.0
[2024-04-18] VITALS (10 sets, daily range): BP systolic 119–163; BP diastolic 64–84; PULSE 59–69; RESP 17–21; TEMP 36.9; O2SAT 94–98; BMI 30.9
--- NOTE | 2024-04-18 10:39 | EKG_ITS ---
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
[2024-04-18 10:41] LABS: Add Manual Diff / Slide Review NO; Basophils Absolute Auto 100 /uL (0-100); Basophils Percent Auto 0.5 % (0-2); Eosinophils Absolute Auto 400 /uL (0-450); Eosinophils Percent Auto 3.5 % (2-4); Hematocrit 52.1 % (41-53); Hemoglobin 17.6 g/dL (13.5-17.5); Lymphocytes Absolute Auto 3200 /uL (1100-4500); Lymphocytes Percent Auto 31.2 % (25-40); Mean Corpuscular HGB Conc 33.8 % (30-36); Mean Corpuscular Hemoglobin 29.2 PG (26-34); Mean Corpuscular Volume 86.4 fL (80-100); Monocytes Absolute Auto 600 /uL (0-900); Monocytes Percent Auto 6.1 % (3-14); Neutrophils Absolute Auto 6000 /uL (1500-7000); Neutrophils Percent Auto 58.7 % (50-75); Platelet Count 290 X10^3/uL (150-400); Red Blood Cell Count 6.03 X10^6/uL (4.5-5.9); Red Cell Distribution Width 14.6 % (11.6-14.8); White Blood Cell Count 10.2 X10^3/uL (4.5-11.0)
[2024-04-18 10:52] LABS: Alanine Aminotransferase 22 IU/L (<50); Albumin 5.1 g/dL (3.5-5.0); Albumin Globulin Ratio 1.8 (1.0-2.8); Alkaline Phosphatase 61 U/L (38-126); Aspartate Aminotransferase 29 IU/L (17-59); BUN Creatinine Ratio 13.5 (6-22); Bilirubin Total 0.9 mg/dL (0.2-1.3); Blood Urea Nitrogen 10 mg/dL (9-20); Calcium 9.3 mg/dL (8.4-10.2); Carbon Dioxide 26 mmol/L (22-32); Chloride 94 mmol/L (98-107); Estimated Glomerular Filt Rate > 60 mL/min (>60); Globulin 2.9 g/dL (1.7-4.1); Glucose 184 mg/dL (80-110); HEMOLYSIS 15 (0-50); Lipase 20 U/L (23-300); Potassium 3.2 mmol/L (3.4-5.1); Sodium 133 mmol/L (137-145)
--- NOTE | 2024-04-18 11:55 | ED.ABDPAIN ---
HPI - Abdominal Pain General Chief Complaint: Abdominal Pain Stated Complaint: blocked up Time Seen by Provider: 04/18/24 11:44 Source: patient Mode of arrival: Family Vehicle History of Present Illness HPI narrative: Patient is a 78-year-old male who has a history of chronic back pain type 2 diabetes prostate cancer with surgery presenting today with abdominal pain. He reports that for about a week he has not been feeling quite right he has had some abdominal discomfort feels like he might be backed up. No nausea or vomiting. He says he was having bowel movements only if he takes Metamucil. No chest pain no shortness of breath or other symptoms Related Data Home Medications Medication Instructions Recorded Confirmed insulin glargine 100 unit/mL (3 18 unit SQ HS ##0 12/08/15 03/24/24 mL) subcutaneous pen (Lantus Solostar U-100 Insulin) empagliflozin 25 mg tablet 25 mg PO DAILY 04/30/22 03/24/24 (Jardiance) insulin degludec 100 unit/mL (3 5 unit SUBCUT BEDTIME 10/02/23 03/24/24 mL) subcutaneous pen repaglinide 0.5 mg tablet 0.5 mg PO ONCE 10/02/23 03/24/24 Previous Rx's Medication Instructions Recorded azelastine 137 mcg (0.1 %) nasal 1 spray intranasal BID #30 mL 08/25/18 spray polyethylene glycol 3350 17 17 gram PO DAILY #510 grams 04/06/19 gram/dose oral powder (Miralax) clotrimazole 1 % topical cream 1 applictn topical BID 2 weeks #12 09/23/19 grams mupirocin 2 % topical ointment 1 applic topical BID #30 grams 04/01/20 desonide 0.05 % topical cream 1 applic topical QD-BID PRN rash 10/27/21 #60 grams potassium chloride 10 mEq 10 meq PO DAILY #90 caps 11/29/21 capsule,extended release ketoconazole 2 % shampoo 1 applic topical 2XW #120 mL 04/30/22 omeprazole 40 mg capsule,delayed 40 mg PO BID #180 caps 07/16/22 release pen needle, diabetic 31 gauge x #100 ea 05/14/2305/10 (Unifine Pentips) clobetasol 0.05 % scalp solution 1 applic topical DAILY PRN itching 06/14/23 #50 mL rosuvastatin 10 mg tablet See Rx Instructions .Route 09/02/23 .COMPLEX #90 tabs meloxicam 15 mg tablet 15 mg PO DAILY #30 tabs 10/02/23 amlodipine 10 mg tablet (Norvasc) 10 mg PO Q DAY #90 tabs 10/29/23 triamterene 37.5 1 tab PO QDAY #90 tabs 12/31/23 mg-hydrochlorothiazide 25 mg tablet nystatin 100,000 unit/gram topical 1 applic topical QID #60 grams 01/29/24 powder lisinopril 40 mg tablet 40 mg PO DAILY #90 tabs 02/03/24 diazepam 5 mg tablet (Valium) 5 mg PO BID #60 tabs 02/06/24 albuterol sulfate 90 mcg/actuation 2 puff inhalation Q4H PRN 02/21/24 aerosol inhaler shortness of breath or wheezing #18 grams hydrocodone 5 mg-acetaminophen 325 1 - 2 tab PO Q4H PRN pain #240 tabs 03/24/25 mg tablet hydrocodone 5 mg-acetaminophen 325 1 - 2 tab PO Q4H PRN pain #240 tabs 03/24/25 mg tablet hydrocodone 5 mg-acetaminophen 325 1 - 2 tab PO Q4HP PRN pain #240 03/24/25 mg tablet tabs metoprolol succinate 50 mg 50 mg PO BID #180 tabs 04/10/24 tablet,extended release 24 hr ondansetron 4 mg disintegrating 4 mg PO Q8H PRN nausea and 04/18/24 tablet vomiting #10 tabs Allergies Allergy/AdvReac Type Severity Reaction Status Date / Time metronidazole Allergy Severe NEUROPATHY Verified 04/18/24 10:21 IN THE FEET naproxen Allergy Severe TONGUE Verified 04/18/24 10:21 SWELLING, ITCHY Sulfa (Sulfonamide Allergy Mild UNSURE Verified 04/18/24 10:21 Antibiotics) glipizide [GLIPIZIDE] AdvReac Intermediate sick all Verified 04/18/24 10:21 over metformin AdvReac Intermediate GASTRIC Verified 04/18/24 10:21 UNEASE, LOOSE STOOL oxycodone [From Percocet] AdvReac Mild NAUSEA Verified 04/18/24 10:21 Patient History Medical History Sacral dysfunction Lumbar radiculopathy Lumbar compression fracture Idiopathic cardiomyopathy Lumbar spinal stenosis Uncomplicated opioid dependence Hay fever Foot pain History of Clostridium difficile colitis (~2011) Hypertension (~1993) Hyperlipidemia History of malignant neoplasm of prostate (06/16/15) Uncontrolled type 2 diabetes mellitus (03/30/14) Anxiety (04/30/13) Idiopathic peripheral neuropathy (03/12/13) Controlled type 2 diabetes mellitus without complication (03/21/12) Surgical History Ankle pain (~1996) Status post radical cystoprostatectomy (~1994) Family History Father Type II diabetes mellitus Heart disease Grandfather Heart disease Mother Lung cancer Grandfather Prostate cancer Social History marital status: unmarried,single number of children: 0 household members: none lives independently: Yes caregiver/support person: No housing: house pets and animals: Yes education level: college occupational status: other current occupational exposures/hazards: No 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: [employer] leisure activities: other Smoking Status: Never smoker Tobacco: How many years used: 0 quit status: quit date established second hand exposure: No alcohol intake: never substance use type: does not use Smoking Status: Never smoker alcohol intake frequency: holidays/special occasions only Exam Initial Vital Signs Initial Vital Signs: Vital Signs Temperature 98.4 F 04/18/24 10:16 Pulse Rate 69 04/18/24 10:16 Respiratory Rate 18 04/18/24 10:16 Blood Pressure 119/78 04/18/24 10:16 Pulse Oximetry 98 04/18/24 10:16 Oxygen Delivery Method Room Air 04/18/24 10:16 GENERAL: Alert 78-year-old male and in no acute distress. HEENT: Head atraumatic,EOMI, pupils reactive, face symmetric, moist mucous membranes CARDIOVASCULAR: Regular rate and rhythm without murmurs, rubs or gallops. RESPIRATORY: Breath sounds equal bilaterally, no wheezes rales or rhonchi. ABDOMEN: Soft, mildly tender no distention no guarding no EXTREMITIES: Normal range of motion, no clubbing or edema. Neurovascularly intact NEUROLOGICAL: Alert and oriented x4.Normal gait and speech. Cranial nerves II through XII grossly intact. SKIN: Warm, dry, no laceration, no petechiae, no rashes or lesions. Course Orders Ordered: ED Orders 04/18/24 10:23 EKG-12 Lead Stat 04/18/24 10:30 Complete Blood Count AUTO DIFF Stat Comprehensive Metabolic Panel Stat Lipase Stat 04/18/24 11:55 CT abdomen pelvis w con Stat Discontinued Medications Morphine Sulfate (Morphine 4 Mg/Ml Inj) 4 mg IV NOW ONE Stop: 04/18/24 11:57 Last Admin: 04/18/24 12:04 Dose: 4 mg Documented By: MAURICIO Ondansetron HCl (Ondansetron 4 Mg/2 Ml Inj) 4 mg IV NOW PRN PRN Reason: Nausea And Vomiting Ondansetron HCl (Ondansetron 4 Mg Odt) 4 mg PO NOW PRN PRN Reason: Nausea And Vomiting Vital Signs Vital signs: Vital Signs - 8 hr 04/18/24 10:16 04/18/24 10:41 04/18/24 10:43 Temperature 98.4 F Pulse Rate 69 59 L 59 L Respiratory Rate 18 Blood Pressure 119/78 Pulse Oximetry 98 96 94 Oxygen Delivery Method Room Air 04/18/24 10:43 04/18/24 11:00 04/18/24 11:30 Temperature Pulse Rate 60 60 Respiratory Rate 19 19 Blood Pressure 163/79 H Pulse Oximetry 97 96 Oxygen Delivery Method 04/18/24 12:00 04/18/24 12:07 04/18/24 12:07 Temperature Pulse Rate 59 L 66 Respiratory Rate 21 18 Blood Pressure 159/84 H Pulse Oximetry 95 94 Oxygen Delivery Method 04/18/24 12:30 04/18/24 12:30 04/18/24 13:00 Temperature Pulse Rate 64 62 Respiratory Rate 17 17 Blood Pressure 139/65 Pulse Oximetry 95 96 Oxygen Delivery Method 04/18/24 13:00 04/18/24 13:30 04/18/24 13:30 Temperature Pulse Rate 64 Respiratory Rate Blood Pressure 132/64 141/65 H Pulse Oximetry 94 Oxygen Delivery Method MDM - Abdominal Pain Lab Data 04/18/24 10:30 04/18/24 10:30 Labs: Lab Results 04/18/24 Range/Units 10:30 WBC 10.2 (4.5-11.0) X10^3/uL RBC 6.03 H (4.5-5.9) X10^6/uL Hgb 17.6 H (13.5-17.5) g/dL Hct 52.1 (41-53) % MCV 86.4 (80-100) fL MCH 29.2 (26-34) PG MCHC 33.8 (30-36) % RDW 14.6 (11.6-14.8) % Plt Count 290 (150-400) X10^3/uL Neut % (Auto) 58.7 (50-75) % Lymph % (Auto) 31.2 (25-40) % Barron % (Auto) 6.1 (3-14) % Eos % (Auto) 3.5 (2-4) % Baso % (Auto) 0.5 (0-2) % Neut # (Auto) 6000 (6787-3910) /uL Lymph # (Auto) 3200 (4668-6947) /uL Barron # (Auto) 600 (0-900) /uL Eos # (Auto) 400 (0-450) /uL Baso # (Auto) 100 (0-100) /uL Sodium 133 L (137-145) mmol/L Potassium 3.2 L (3.4-5.1) mmol/L Chloride 94 L (98-107) mmol/L Carbon Dioxide 26 (22-32) mmol/L BUN 10 (9-20) mg/dL Creatinine 0.74 (0.66-1.25) mg/dL Estimated GFR > 60 (>60) mL/min BUN/Creatinine Ratio 13.5 (6-22) Glucose 184 H (80-110) mg/dL Calcium 9.3 (8.4-10.2) mg/dL Total Bilirubin 0.9 (0.2-1.3) mg/dL AST 29 (17-59) IU/L ALT 22 (<50) IU/L Alkaline Phosphatase 61 (38-126) U/L Total Protein 8.0 (6.3-8.2) g/dL Albumin 5.1 H (3.5-5.0) g/dL Globulin 2.9 (1.7-4.1) g/dL Albumin/Globulin Ratio 1.8 (1.0-2.8) Lipase 20 L (23-300) U/L Imaging Data CT scan - abdomen/pelvis: Radiologist's Impression: PROCEDURE: CT ABDOMEN PELVIS W CON INDICATIONS: pain r/o sbo TECHNIQUE: After the administration of intravenous contrast, axial sections acquired from the lung bases to the pubic symphysis. Coronal and sagittal reformats were performed. For radiation dose reduction, the following was used: automated exposure control, adjustment of mA and/or kV according to patient size. COMPARISON: [facility], CT, CT ABDOMEN PELVIS W CON, 07/30/2023, 10:02. FINDINGS: Image quality: Diagnostic. Lower Chest: Small hiatal hernia. Extreme lung bases are clear. ABDOMEN: Liver: No solid mass. Gallbladder: No radiopaque gallstones or wall thickening. Biliary ducts: No biliary dilation. Pancreas: No ductal dilation. Spleen: Size is within normal limits. Adrenal Glands: No adrenal nodules. Kidneys and Ureters: No hydronephrosis. No solid mass. No complex renal cystic lesion which requires follow up. Stomach and Bowel: Normal colonic caliber, without significant wall thickening. Large diffuse fecal load. Peritoneum: No abnormal intraperitoneal fluid. No free air. Ventral Wall: No significant ventral hernia. Abdominal Nodes: No retroperitoneal or mesenteric adenopathy by size criteria. Vessels: Aorta and inferior vena cava are normal in size. PELVIS: Pelvic Organs: Radical prostatectomy.. Bladder: No bladder wall thickening, accounting for underdistention. Pelvic Nodes: No enlarged lymph nodes. Miscellaneous: Bilateral fat containing inguinal hernias are seen. Incidental note made of large right upper thigh varicosities off right greater saphenous vein. Bones: No aggressive osseous abnormality. IMPRESSION: Normal bowel gas pattern with large diffuse fecal load. Remote radical prostatectomy. No evidence of metastatic disease. No acute abdominal process noted. Dictated by: Clinton Juan M.D. on 04/18/2024 at 12:48 Approved by: Clinton Juan M.D. on 04/18/2024 at 12:51 ECG Data Attestation: I personally reviewed and interpreted this ECG as follows: Interpretation: Sinus rhythm with PVCs similar to prior EKGs MDM Narrative Medical decision making narrative: MDM CC: Abdominal Complicating co-morbidities: History of prostate cancer with prostatectomy chronic pain Medical records reviewed: Previous PCP visit Differential considered: Bowel obstruction diverticulitis Exam documented above, pertinent findings include: Abdomen soft nontender positive bowel sounds patient appears Lab Test results independently reviewed as above. Pertinent findings: CBC WBCs 7.2 17.6 hematocrit 52.1 previously 16.8/50.1 Sodium 133 potassium 3.2 chloride 94 carbon dioxide 26 BUN 10 creatinine 0.7 glucose 184 Bilirubin liver enzymes within normal limits lipase 20 Independently reviewed EKG as above No ischemia Imaging studies independently reviewed: CT abdomen pelvis does not show any evidence of obstruction diverticulitis nephrolithiasis or any cause for discomfort Treatments: Zofran anymore Discussion: Patient is 78-year-old male presenting today with abdominal pain. Abdomen is really soft no sign of peritonitis. Blood work is overall reassuring some mild electrolyte abnormalities. Given morphine here which did help with pain. At this time possible gastritis versus viral illness. No cause for acute abdominal pain. Workup is overall reassuring. Discharge Plan Departure Patient Disposition: Home Clinical Impression: Gastritis Instructions: DI for Viral Gastroenteritis -- Adult Activity Restrictions/Additional Instructions: *You have been diagnosed with gastritis *What to do: At this time be sure to hydrate with fluids may increase diet as tolerated recommend electrolyte fluid of your choice *Continue to take medications as directed Zofran 4 mg every 8 hours if needed for nausea or vomiting *Follow up with your primary care provider in 2-3 days or call [phone] *Return to ER if you should have increasing pain persistent vomiting not passing any gas [or] any new, worsening or concerning symptoms Prescriptions: New ondansetron 4 mg tablet,disintegrating 4 mg PO Q8H PRN (Reason: nausea and vomiting) Qty: 10 0RF No Action Lantus Solostar U-100 Insulin 100 UNIT/1 ML insulin pen 18 unit SQ HS Qty: 0 Rx Instructions: states takes 18-20 units at HS mupirocin 2 % ointment 1 applic topical BID Qty: 30 0RF omeprazole 40 mg capsule,delayed release(DR/EC) 40 mg PO BID Qty: 180 2RF (DME) pen needle, diabetic [Unifine Pentips] 31 gauge x 3/16 needle See Rx Instructions .ROUTE .MEDSUPPLY Qty: 100 3RF Rx Instructions: As directed clobetasol 0.05 % solution 1 applic topical DAILY PRN (Reason: itching) Qty: 50 3RF rosuvastatin 10 mg tablet See Rx Instructions .ROUTE .COMPLEX Qty: 90 3RF Dose Instruction: TAKE ONE TABLET BY MOUTH ONCE DAILY Patient Comments: States takes 5x a week due to occasional stomach upset Rx Instructions: TAKE ONE TABLET BY MOUTH ONCE DAILY. amlodipine [Norvasc] 10 mg tablet 10 mg PO Q DAY Qty: 90 3RF nystatin 100,000 unit/gram powder 1 applic topical QID Qty: 60 4RF lisinopril 40 mg tablet 40 mg PO DAILY Qty: 90 3RF diazepam [Valium] 5 mg tablet 5 mg PO BID Qty: 60 2RF Patient Comments: usually takes once to twice daily as needed albuterol sulfate 90 mcg/actuation HFA aerosol inhaler 2 puff INHALATION Q4H PRN (Reason: shortness of breath or wheezing) Qty: 18 6RF Patient Comments: takes for allergies, rarely metoprolol succinate 50 mg tablet extended release 24 hr 50 mg PO BID Qty: 180 3RF Jardiance 25 mg tablet 25 mg PO DAILY ketoconazole 2 % shampoo 1 applic TOP 2XW Qty: 120 3RF triamterene-hydrochlorothiazid 37.5-25 mg tablet 1 tab PO QDAY Qty: 90 2RF hydrocodone-acetaminophen 5-325 mg tablet 1 - 2 tab PO Q4H MDD 8 tabs PRN (Reason: pain) Qty: 240 0RF hydrocodone-acetaminophen 5-325 mg tablet 1 - 2 tab PO Q4HP MDD 8 tabs PRN (Reason: pain) Qty: 240 0RF hydrocodone-acetaminophen 5-325 mg tablet 1 - 2 tab PO Q4H MDD 8 tabs PRN (Reason: pain) Qty: 240 0RF azelastine 137 mcg (0.1 %) aerosol,spray 1 spray NASAL BID Qty: 30 4RF Patient Comments: allergies or bronchial issues per patient Rx Instructions: administer into each nostril clotrimazole 1 % cream 1 applictn TOP BID 14 Days Qty: 12 8RF desonide 0.05 % cream 1 applic topical QD-BID PRN (Reason: rash) Qty: 60 2RF potassium chloride 10 mEq capsule, extended release 10 meq PO DAILY Qty: 90 1RF polyethylene glycol 3350 [Miralax] 17 gram/dose powder 17 gram PO DAILY Qty: 510 5RF repaglinide 0.5 mg tablet 0.5 mg PO ONCE Patient Comments: [NO ORIGINAL SIG] insulin degludec 100 unit/mL (3 mL) insulin pen 5 unit SUBCUT BEDTIME Patient Comments: [NO ORIGINAL SIG] meloxicam 15 mg tablet 15 mg PO DAILY Qty: 30 2RF Referrals: Christopher Hardy MD [Primary Care Provider] - Stand Alone Forms: Patient Portal/API/Survey
[2024-04-18] MEDS: MORPHINE 4 MG/ML INJ IV (12:04)
== END 2024-04-18 13:46 | disposition home or self-care (01) ==
PROVIDERS: Emergency Provider Emergency Medicine; Family Provider Internal Medicine; PCP Internal Medicine
DX: K29.70 Gastritis, unspecified, without bleeding (principal); I49.3 Ventricular premature depolarization
CPT/HCPCS: 36415; 74177; 80053; 83690; 85025; 93005; 93010; 96374; 99284; J2270; Q9967

== ENCOUNTER → 2024-06-15 07:50 | Outpatient (CLI) | payer MEDICARE, OTHER, SELFPAY ==
[2022-10-17 16:10] VITALS: BMI 33.0
[2024-06-15 08:54] LABS: Albumin 4.6 g/dL (3.5-5.0); BUN Creatinine Ratio 23.1 (6-22); Blood Urea Nitrogen 18 mg/dL (9-20); Carbon Dioxide 29 mmol/L (22-32); Chloride 95 mmol/L (98-107); Cholesterol 127 mg/dL (140-199); Estimated Glomerular Filt Rate > 60 mL/min (>60); Glucose 189 mg/dL (80-110); HDL Cholesterol 47 mg/dL (40-60); HEMOLYSIS < 15 (0-50); LDL Cholesterol Calculated 36 mg/dL (<100); Phosphorous 2.7 mg/dL (2.3-3.7); Potassium 3.7 mmol/L (3.4-5.1); Sodium 133 mmol/L (137-145); Triglycerides 219 mg/dL (35-150)
[2024-06-15 09:16] LABS: Creatinine Urine Random 86.65 mg/dL
== END ==
PROVIDERS: Family Provider Internal Medicine; PCP Internal Medicine; Referring Provider Student in an Organized Health Care Education/Training Program; Visit Provider Student in an Organized Health Care Education/Training Program
DX: E11.69 Type 2 diabetes mellitus with other specified complication (principal)
CPT/HCPCS: 36415; 80061; 80069; 82043; 82570

== ENCOUNTER 2025-02-19 10:30 | Emergency (ER) | payer MEDICARE, OTHER, SELFPAY ==
[2022-10-17 16:10] VITALS: BMI 33.0
[2025-02-19] VITALS (16 sets, daily range): BP systolic 125–194; BP diastolic 63–76; PULSE 58–76; RESP 15–24; TEMP 36.6; O2SAT 90–95; BMI 30.3
--- OUTSIDE RECORDS SUMMARY | 2025-02-19 10:32 | XMS_ITS | Encounter Summary ---
Author Organization [facility] Address [address] [place] [address] Care Team Providers Care Sales Apprentice Name Role Phone Pcp, None Selected Primary Care Provider Unavail able Reason for Visit * Reason Comments Med Refill Encounter Details Date Type Department Care Team (Late Contact Info) Description 03/27/2021 Refill [facility] Endocrinology [place] [address] [place] [address] Armen Rey MD [address] [place], [place] [id number] Social History Tobacco Use Types Packs/Day Years Used Date Smoking Tobacco: Never Smokeless Tobacco: Never Alcohol Use Standard Drinks/Week Comments No 0 (1 standard drink = 0.6 oz pur e alcohol) Sex and Gender Information Value Date Recorded Sex Assigned at Not on file Legal Sex Male 12:34 PM PDT Gender Identity Not on file Sexual Orientation Not on file documented as of this encounter Plan of Treatment Upcoming Encounters Date Type Department Care Team (Late st Contact Info) Description 08/17/2025 12:00 PM PDT Office Visit [facility] Endocrinology [address] [place] [id number] Tyler Delgadillo, DO [address] [place], [place] [id number] documented as of this encounter Visit Diagnoses Not on filedocumented in this encounter Care Teams Sales Apprentice Relationship Specialty Start Date End Date Pcp, None Selected PCP - General 06/11/24 documented as of this encounter
--- NOTE | 2025-02-19 10:38 | ED_ITS ---
HPI - General Adult General Chief complaint: Chest Pain Stated complaint: Pain on left side of body, nausea. Time Seen by Provider: 02/19/25 10:34 History of Present Illness HPI narrative: 78-year-old gentleman history of chronic back pain, type 2 diabetes, prostate cancer, dyslipidemia, high blood pressure, presents with left-sided chest pain described as pressure sensation started yesterday rated as 8/10 taken 1 [place] which has eased the pain but still symptomatic at this time. Patient denies back pain diaphoresis nausea vomiting constipation diarrhea rectal bleeding urinary complaints cough shortness of breath. Still feeling pressure at this time but has eased up some. Other than what is stated 14 pt ROS is negative. Related Data Home Medications ?Medication ?Instructions ?Recorded ?Confirmed insulin glargine 100 unit/mL (3 18 unit SQ HS ##0 11/2502/15/25 mL) subcutaneous pen (Lantus Solostar U-100 Insulin) empagliflozin 25 mg tablet 25 mg PO DAILY 04/30/22 (Jardiance) Held on 05/11/24. Instructions: rashes insulin degludec 100 unit/mL (3 5 unit SUBCUT BEDTIME 10/02/23 02/15/25 mL) subcutaneous pen repaglinide 1 mg tablet 1 mg PO TID 02/15/25 5 sitagliptin phosphate 100 mg 100 mg PO DAILY 02/15/25 02/15/25 tablet (Januvia) Previous Rx's ?Medication ?Instructions ?Recorded azelastine 137 mcg (0.1 %) nasal 1 spray intranasal BI D #30 mL 08/25/18 spray polyethylene glycol 3350 17 17 gram PO DAILY #510 gram s 04/06/19 gram/dose oral powder (Miralax) clotrimazole 1 % topical cream 1 applictn topical BID 2 weeks #12 09/23/19 grams mupirocin 2 % topical ointment 1 applic topical BID #3 0 grams 04/01/20 desonide 0.05 % topical cream 1 applic topical QD-BID PRN rash 10/27/21 #60 grams potassium chloride 10 mEq 10 meq PO DAILY #90 caps 07/16 capsule,extended release ketoconazole 2 % shampoo 1 applic topical 2XW #120 mL 03/06/23 omeprazole 40 mg capsule,delayed 40 mg PO BID #180 cap s 07/16/22 release clobetasol 0.05 % scalp solution 1 applic topical GORDY Y PRN itching 06/14/23 #50 mL amlodipine 10 mg tablet (Norvasc) 10 mg PO Q DAY #90 t abs 10/29/23 albuterol sulfate 90 mcg/actuation 2 puff inhalation Q 4H PRN 02/21/24 aerosol inhaler shortness of breath or wheez ing #18 grams metoprolol succinate 50 mg 50 mg PO BID #180 tabs 03/28 06/19 tablet,extended release 24 hr ondansetron 4 mg disintegrating 4 mg PO Q8H PRN nausea and 04/18/24 tablet vomiting #10 tabs nystatin 100,000 unit/gram topical 1 applic topical QI D #60 grams 06/15/24 powder pen needle, diabetic 31 gauge x #100 ea 06/15/2405/10 (Unifine Pentips) rosuvastatin 10 mg tablet See Rx Instructions .Route 0 07/23/24 .COMPLEX #90 tabs triamterene 37.5 1 tab PO QDAY #90 tabs 09/22 mg-hydrochlorothiazide 25 mg tablet lisinopril 40 mg tablet 40 mg PO DAILY #90 tabs 1105/19 diazepam 5 mg tablet (Valium) 5 mg PO BID-TID #90 tabs 02/15/25 hydrocodone 5 mg-acetaminophen 325 1 - 2 tab PO Q4H KS N pain #240 tabs 02/15/25 mg tablet hydrocodone 5 mg-acetaminophen 325 1 - 2 tab PO Q4H KS N pain #240 tabs 02/15/25 mg tablet hydrocodone 5 mg-acetaminophen 325 1 - 2 tab PO Q4HP P RN pain #240 02/15/25 mg tablet tabs Allergies Allergy/AdvReac Type Severity Reaction Status Date / Time metronidazole Allergy Severe NEUROPATHY Verified 02/19/25 10:44 IN THE FEET naproxen Allergy Severe TONGUE Verified 02/19/25 10:44 SWELLING, ITCHY Sulfa (Sulfonamide Allergy Mild UNSURE Verified 02/19/25 10:44 Antibiotics) [facility] AdvReac Intermediate Nausea Verified 02/19/25 10:44 glipizide (GLIPIZIDE) AdvReac Intermediate sick all Verified 02/19/25 10:44 over metformin AdvReac Intermediate GASTRIC Verified 02/19/25 10:44 UNEASE, LOOSE STOOL oxycodone (From Percocet) AdvReac Mild NAUSEA Verified 02/19/25 10:44 Review of Systems Review of Systems ROS Unobtainable: All systems reviewed & are unremarkable except as noted in HPI and below Patient History Medical History (Updated 02/19/25 @ 14:25 by Christopher Treviño DO) Uncontrolled type 2 diabetes mellitus with hyperglycemia Long-term insulin use Constipation due to pain medication Sacral dysfunction Lumbar radiculopathy Lumbar compression fracture Idiopathic cardiomyopathy Lumbar spinal stenosis Uncomplicated opioid dependence [place] fever Foot pain History of Clostridium difficile colitis (~2011) Hypertension (~1993) Hyperlipidemia History of malignant neoplasm of prostate (06/16/15) Uncontrolled type 2 diabetes mellitus (03/30/14) Anxiety (04/30/13) Idiopathic peripheral neuropathy (03/12/13) Controlled type 2 diabetes mellitus without complication (03/21/12) Surgical History Ankle pain (~1996) Status post radical cystoprostatectomy (~1994) Family History Father Type II diabetes mellitus Heart disease Grandfather Heart disease Mother Lung cancer Grandfather Prostate cancer Social History marital status: unmarried,single number of children: 0 household members: none lives independently: Yes caregiver/support person: No housing: house pets and animals: Yes education level: college occupational status: other current occupational exposures/hazards: No 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 Well-developed patient, in mild distress. HEAD: Atraumatic. Normocephalic. EYES: Pupils equal round and reactive. Extraocular motions intact. No scleral icterus. No injection or drainage. ENT: Nose without bleeding, purulent drainage. Throat without erythema, tonsillar hypertrophy or exudate. Airway patent. NECK: Trachea midline. Non tender CARDIOVASCULAR: Regular rate and rhythm without murmurs, gallops, or rubs. RESPIRATORY: Clear to auscultation. Breath sounds equal bilaterally. No wheezes, rales, or rhonchi. GASTROINTESTINAL: Abdomen soft, non-tender, nondistended. EXTREMITIES: No edema or joint tenderness. BACK: Nontender without deformity or crepitance. No flank tenderness. NEURO: AOx3. SKIN: No rash or erythema of visible areas Initial Vital Signs Initial Vital Signs: Vital Signs Temperature 97.9 F 02/19/25 10:44 Pulse Rate 68 02/19/25 10:44 Respiratory Rate 16 02/19/25 10:44 Blood Pressure 159/76 H 02/19/25 10:44 Pulse Oximetry 93 02/19/25 10:44 Oxygen Delivery Method Room Air 02/19/25 10:44 Scores HEART Score Heart Score history: Moderately Suspicious Heart Score EKG: Non-Specific repolarization disturbance Heart Score Age: > or = 65 years old Heart Score risk factors: > 3 risk factors or hx of atherosclerotic disease Heart Score troponin: 1-3 times normal limit Heart Score Total: 7 Course Orders Ordered: ED Orders 02/19/25 10:46 XR chest 1V Stat EKG-12 Lead Stat 02/19/25 11:05 Complete Blood Count AUTO DIFF Stat Comprehensive Metabolic Panel Stat Lipase Stat Magnesium Stat NT-proBNP (BNP-Adult 18+) Stat PTT Partial Thromboplastin Peter Stat Prothrombin Time INR Stat Troponin & CK Cardiac Panel Stat 02/19/25 13:05 Troponin I Stat Nitroglycerin (Nitroglycerin 0.4 Mg Sl Tab) 0.4 mg SL [id number] PRN PRN Reason: Chest Pain Last Admin: 02/19/25 13:08 Dose: 0.4 mg Documented By: Marvel Discontinued Medications Ondansetron HCl (Ondansetron 4 Mg/2 Ml Inj) 4 mg IV NOW ONE Stop: 02/19/25 13:00 Last Admin: 02/19/25 13:10 Dose: 4 mg Documented By: MICHAEL Vital Signs Vital signs: Vital Signs - 8 hr 02/19/25 10:44 02/19/25 11:18 02/19/25 11:30 Temperature 97.9 F Pulse Rate 68 61 60 Respiratory Rate 16 15 20 Blood Pressure 159/76 H Pulse Oximetry 93 93 94 Oxygen Delivery Method Room Air 02/19/25 11:31 02/19/25 11:31 02/19/25 12:00 Temperature Pulse Rate 60 59 L Respiratory Rate 17 18 Blood Pressure 137/63 Pulse Oximetry 91 92 Oxygen Delivery Method Room Air 02/19/25 12:01 02/19/25 12:01 02/19/25 12:30 Temperature Pulse Rate 59 L 58 L Respiratory Rate 16 21 Blood Pressure 140/66 Pulse Oximetry 93 91 Oxygen Delivery Method 02/19/25 12:30 02/19/25 13:00 02/19/25 13:00 Temperature Pulse Rate 61 Respiratory Rate 20 Blood Pressure 138/66 141/68 H Pulse Oximetry 95 Oxygen Delivery Method 02/19/25 13:08 02/19/25 13:10 02/19/25 13:10 Temperature Pulse Rate 76 63 Respiratory Rate 18 Blood Pressure 141/68 H 157/72 H Pulse Oximetry 90 L Oxygen Delivery Method Medical Decision Making Lab Data 02/19/25 11:05 02/19/25 11:05 Labs: Lab Results 02/19/25 02/19/25 Range/Units 11:05 13:05 WBC 10.5 (4.5-11.0) X10^3/uL RBC 5.91 H (4.5-5.9) X10^6/uL Hgb 17.2 (13.5-17.5) g/dL Hct 49.1 (41-53) % MCV 83.2 (80-100) fL MCH 29.1 (26-34) PG MCHC 35.0 (30-36) % RDW 14.2 (11.6-14.8) % Plt Count 292 (150-400) X10^3/uL Neut % (Auto) 64.3 (50-75) % Lymph % (Auto) 25.4 (25-40) % Phillips % (Auto) 7.1 (3-14) % Eos % (Auto) 2.5 (2-4) % Baso % (Auto) 0.7 (0-2) % Neut # (Auto) 6800 (2325-7376) /uL Lymph # (Auto) 2700 (1280-6907) /uL Phillips # (Auto) 700 (0-900) /uL Eos # (Auto) 300 (0-450) /uL Baso # (Auto) 100 (0-100) /uL PT 11.9 (9.4-12.5) SECONDS INR 1.1 (0.9-1.3) APTT 31 (25.1-36.5) SECONDS Sodium 126 L (137-145) mmol/L Potassium 3.0 L (3.4-5.1) mmol/L Chloride 84 L (98-107) mmol/L Carbon Dioxide 30 (22-32) mmol/L BUN 6 L (9-20) mg/dL Creatinine 0.68 (0.66-1.25) mg/dL Estimated GFR > 60 (>60) mL/min BUN/Creatinine Ratio 8.8 (6-22) Glucose 187 H (70-99) mg/dL Calcium 10.2 (8.4-10.2) mg/dL Magnesium 1.6 (1.6-2.3) mg/dL Total Bilirubin 1.2 (0.2-1.3) mg/dL AST 35 (17-59) IU/L ALT 26 (<50) IU/L Alkaline Phosphatase 66 (38-126) U/L Total Creatine Kinase 159 (55-170) U/L Troponin I 0.040 H 0.037 H (0.01-0.034) ng/mL NT-Pro-B Natriuret Pep 757 H (<450) pg/mL Total Protein 7.5 (6.3-8.2) g/dL Albumin 4.8 (3.5-5.0) g/dL Globulin 2.7 (1.7-4.1) g/dL Albumin/Globulin Ratio 1.8 (1.0-2.8) Lipase 24 (23-300) U/L ECG Data Interpretation: NSR LAFB HR 64 QRS [address]-t wave change Unchanged from 04/18/24 MDM Narrative Medical decision making narrative: All lab work, vital signs, nurse triage note, medication list, previous ER visits, and all imaging studies reviewed. First set troponin 0.04 2nd set 0.03 and P 7 5 7 sugar 187 creatinine 0.68 sodium 126 potassium 3.0 given 40 mEq of potassium. Magnesium 1.6. 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 Differential dx nstemi, stemi, unstable angina. D/c home on asa and metoprolol rx. Pt had headache and refused tylenol and had nausea too. Pt is chest pain free at this time prior to discharge. Discharge Plan Departure Patient Disposition: Home Clinical Impression: Chest pain, Acute hypokalemia Instructions: DI for Chest Pain Activity Restrictions/Additional Instructions: Return with new or worsening symptoms. Follow up with Cardiology for outpatient stress test. Call office for appointment. [phone] Prescriptions: No Action Lantus Solostar U-100 Insulin 100 UNIT/1 ML insulin pen 18 unit SQ HS Qty: 0 Rx Instructions: states takes 18-20 units at HS mupirocin 2 % ointment 1 applic topical BID Qty: 30 0RF omeprazole 40 mg capsule,delayed release(DR/EC) 40 mg PO BID Qty: 180 2RF clobetasol 0.05 % solution 1 applic topical DAILY PRN (Reason: itching) Qty: 50 3RF amlodipine [Norvasc] 10 mg tablet 10 mg PO Q DAY Qty: 90 3RF albuterol sulfate 90 mcg/actuation HFA aerosol inhaler 2 puff INHALATION Q4H PRN (Reason: shortness of breath or wheezing) Qty: 18 6RF Patient Comments: takes for allergies, rarely metoprolol succinate 50 mg tablet extended release 24 hr 50 mg PO BID Qty: 180 3RF rosuvastatin 10 mg tablet See Rx Instructions .ROUTE .COMPLEX Qty: 90 3RF Dose Instruction: TAKE ONE TABLET BY MOUTH ONCE DAILY Patient Comments: States takes 5x a week due to occasional stomach upset Rx Instructions: TAKE ONE TABLET BY MOUTH ONCE DAILY. triamterene-hydrochlorothiazid 37.5-25 mg tablet 1 tab PO QDAY Qty: 90 3RF lisinopril 40 mg tablet 40 mg PO DAILY Qty: 90 3RF Jardiance 25 mg tablet 25 mg PO DAILY ketoconazole 2 % shampoo 1 applic TOP 2XW Qty: 120 3RF (DME) pen needle, diabetic [Unifine Pentips] 31 gauge x 3/16 needle See Rx Instructions .ROUTE .MEDSUPPLY Qty: 100 3RF Rx Instructions: Use to inject insulin once daily nystatin 100,000 unit/gram powder 1 applic topical QID Qty: 60 4RF Januvia 100 mg tablet 100 mg PO DAILY repaglinide 1 mg tablet 1 mg PO TID hydrocodone-acetaminophen 5-325 mg tablet 1 - 2 tab PO Q4H MDD 8 tabs PRN (Reason: pain) Qty: 240 0RF hydrocodone-acetaminophen 5-325 mg tablet 1 - 2 tab PO Q4HP MDD 8 tabs PRN (Reason: pain) Qty: 240 0RF hydrocodone-acetaminophen 5-325 mg tablet 1 - 2 tab PO Q4H MDD 8 tabs PRN (Reason: pain) Qty: 240 0RF diazepam [Valium] 5 mg tablet 5 mg PO BID-TID Qty: 90 2RF Patient Comments: usually takes once to twice daily as needed azelastine 137 mcg (0.1 %) aerosol,spray 1 spray NASAL BID Qty: 30 4RF Patient Comments: allergies or bronchial issues per patient Rx Instructions: administer into each nostril clotrimazole 1 % cream 1 applictn TOP BID 14 Days Qty: 12 8RF desonide 0.05 % cream 1 applic topical QD-BID PRN (Reason: rash) Qty: 60 2RF potassium chloride 10 mEq capsule, extended release 10 meq PO DAILY Qty: 90 1RF ondansetron 4 mg tablet,disintegrating 4 mg PO Q8H PRN (Reason: nausea and vomiting) Qty: 10 0RF polyethylene glycol 3350 [Miralax] 17 gram/dose powder 17 gram PO DAILY Qty: 510 5RF insulin degludec 100 unit/mL (3 mL) insulin pen 5 unit SUBCUT BEDTIME Patient Comments: [NO ORIGINAL SIG] Referrals: Christopher Hardy MD [Primary Care Provider, Internal Medicine] Stand Alone Forms: Patient Portal/API
--- NOTE | 2025-02-19 10:46 | DI.RAD.S_ITS ---
PROCEDURE: XR CHEST 1V INDICATIONS: Chest Pain TECHNIQUE: One view of the chest was acquired. COMPARISON: [facility], CR, XR CHEST 1V, 11/29/2021, 9:47. FINDINGS: Surgical changes and devices: None. Lungs and pleura: Lungs are clear. No pleural effusions or pneumothorax. Mediastinum: Mediastinal contours appear normal. Heart size is normal. Bones and chest wall: No suspicious bony lesions. Overlying soft tissues appear unremarkable. IMPRESSION: No acute cardiopulmonary abnormality is seen. Dictated by: Clinton Juan M.D. on 02/19/2025 at 11:46 Approved by: Clinton Juan M.D. on 02/19/2025 at 11:46
--- NOTE | 2025-02-19 10:46 | EKG_ITS ---
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
[2025-02-19 11:15] LABS: Add Manual Diff / Slide Review NO; Hematocrit 49.1 % (41-53); Hemoglobin 17.2 g/dL (13.5-17.5); Lymphocytes Absolute Auto 2700 /uL (1100-4500); Mean Corpuscular HGB Conc 35.0 % (30-36); Mean Corpuscular Hemoglobin 29.1 PG (26-34); Mean Corpuscular Volume 83.2 fL (80-100); Platelet Count 292 X10^3/uL (150-400)
[2025-02-19 11:23] LABS: INR 1.1 (0.9-1.3); Prothrombin Time 11.9 SECONDS (9.4-12.5)
[2025-02-19 11:26] LABS: PTT Partial Thromboplastin Tim 31 SECONDS (25.1-36.5)
[2025-02-19 11:27] LABS: Alanine Aminotransferase 26 IU/L (<50); Albumin 4.8 g/dL (3.5-5.0); Albumin Globulin Ratio 1.8 (1.0-2.8); Alkaline Phosphatase 66 U/L (38-126); Blood Urea Nitrogen 6 mg/dL (9-20); Calcium 10.2 mg/dL (8.4-10.2); Carbon Dioxide 30 mmol/L (22-32); Chloride 84 mmol/L (98-107); Creatine Kinase 159 U/L (55-170); Estimated Glomerular Filt Rate > 60 mL/min (>60); Globulin 2.7 g/dL (1.7-4.1); Glucose 187 mg/dL (70-99); HEMOLYSIS < 15 (0-50); Lipase 24 U/L (23-300); Magnesium 1.6 mg/dL (1.6-2.3); Potassium 3.0 mmol/L (3.4-5.1); Sodium 126 mmol/L (137-145); Total Protein 7.5 g/dL (6.3-8.2)
[2025-02-19 11:39] LABS: NT-proBNP (BNP-Adult 18+) 757 pg/mL (<450); Troponin I 0.040 ng/mL (0.01-0.034)
[2025-02-19] MEDS: NITROGLYCERIN 0.4 MG SL TAB SL (13:08)
[2025-02-19] MEDS: ONDANSETRON 4 MG/2 ML INJ IV ×2 (13:10→14:38)
[2025-02-19 13:40] LABS: Troponin I 0.037 ng/mL (0.01-0.034)
[2025-02-19] MEDS: POTASSIUM CHLORIDE 20 MEQ/15 ML UDC 40 MEQ PO (14:39)
== END 2025-02-19 14:51 | disposition home or self-care (01) ==
PROVIDERS: Emergency Provider Family Medicine; Family Provider Internal Medicine; PCP Internal Medicine
DX: R07.89 Other chest pain (principal); E87.6 Hypokalemia; R11.0 Nausea; E11.65 Type 2 diabetes mellitus with hyperglycemia; Z79.4 Long term (current) use of insulin; I10 Essential (primary) hypertension
CPT/HCPCS: 36415; 71045; 80053; 82550; 83690; 83735; 83880; 84484; 85025; 85610; 85730; 93005; 96374; 96375; 96376; 99284; J2405